=== PATIENT | male | born 1960 | race Two or more races ===

== ENCOUNTER 2016-11-29 20:03 | Emergency (ER) | payer OTHER ==
[2016-11-29 20:13] VITALS: BP 167/95; PULSE 98; TEMP 98.2; BMI 29.5
[2016-11-29] MEDS ORDERED: IBUPROFEN 400 MG TABLET (FP) PO ONE ×2 (20:37→20:45)
[2016-11-29] MEDS ORDERED: ALBUTEROL SO4 0.083% IH SOL 2.5 MG/3 ML VIAL.NEB. NEB ONE ×2 (20:37→20:46)
--- NOTE | 2016-11-29 20:38 | PDOC ---
History of Present Illness - General History Source: Patient Exam Limitations: No Limitations - History of Present Illness Initial Comments: 11/29/16 21:08 The patient is a 56 year old male with a significant past medical history of NIDDM, hypertension, and asthma, who presents to the ER with left ankle pain and swelling for one day. Patient reports he rolled his left ankle while walking yesterday. He says he had no pain yesterday but woke up with swelling and pain in the left ankle. Patient rates the pain now at 10/10. He says he has associated numbness in the left ankle without tingling. On interview, patient says he is short of breath because he forgot his inhaler at home. Denies head or neck trauma Denies paresthesia Denies weakness Denies lightheadedness Surgical Hx: Left nephrectomy Social Hx: Denies alcohol or drug use <Nara Marinelli - Last Filed: 11/29/16 21:07> - General History Source: Patient <Luis Enrique Monroy - Last Filed: 11/29/16 23:35> - General Chief Complaint: Injury Stated Complaint: ANKLE PAIN Time Seen by Provider: 11/29/16 20:24 Past History <Nara Marinelli - Last Filed: 11/29/16 21:07> - Psycho/Social/Smoking Cessation Hx Suicidal Ideation: No Smoking History: Never smoked Have you smoked in the past 12 months: No Information on smoking cessation initiated: No Hx Alcohol Use: No Drug/Substance Use Hx: No <Luis Enrique Monroy - Last Filed: 11/29/16 23:35> - Past Medical History Allergies/Adverse Reactions: Allergies Allergy/AdvReac Type Severity Reaction Status Date / Time No Known Allergies Allergy Verified 11/29/16 20:11 Home Medications: Ambulatory Orders Amlodipine Besylate [Norvasc -] 5 mg PO DAILY 11/29/16 Aspirin [Giovana Chewable] 81 mg PO DAILY 11/29/16 Gabapentin [Neurontin -] 100 mg PO Q8H 11/29/16 Glipizide [Glipizide ER] 2.5 mg PO DAILY 11/29/16 Lisinopril [Prinivil] 10 mg PO DAILY 11/29/16 Lisinopril [Prinivil] 20 mg PO DAILY 11/29/16 Loratadine 10 mg PO DAILY 11/29/16 Multivit-Min/Iron Fum/Folic AC [Lngbu-Tobsked-Qwdaojyn Tablet] 1 each PO DAILY 11/29/16 Omeprazole 20 mg PO DAILY 11/29/16 Omeprazole 20 mg PO DAILY 11/29/16 Ranitidine HCl 150 mg PO DAILY 11/29/16 Sodium Bicarbonate - 1,300 mg PO DAILY 11/29/16 Sodium Bicarbonate - 650 mg PO DAILY 11/29/16 Review of Systems - Review of Systems Able to Perform ROS?: Yes Comments:: 11/29/16 21:08 CONSTITUTIONAL: Absent: fever, no chills, no fatigue EYES: Absent: visual changes ENT: Absent: ear pain, no sore throat CARDIOVASCULAR: Absent: chest pain, no palpitations RESPIRATORY: Absent: cough, no SOB GI: Absent: abdominal pain, no nausea, no vomiting, no constipation, no diarrhea GENITOURINARY: Absent: dysuria, no frequency, no hematuria MUSCULOSKELETAL: Present: (+) left ankle pain, (+) swelling, (+) numbness Absent: back pain, no arthralgia, no myalgia SKIN: Absent: rash NEURO: Absent: headache <Uts,Nara - Last Filed: 11/29/16 21:07> *Physical Exam - Vital Signs Last Vital Signs Temp Pulse Resp BP Pulse Ox 98.2 F 98 H 20 167/95 97 11/29/16 20:11 11/29/16 20:11 11/29/16 20:11 11/29/16 20:11 11/29/16 20:11 - Physical Exam Comments: 11/29/16 21:09 GENERAL: Well-appearing, well-nourished. No apparent distress. HEENT: Normocephalic, atraumatic. PERRL, EOM intact. CARDIOVASCULAR: Normal S1, S2. Regular rate and rhythm. PULMONARY: Clear to auscultation bilaterally. ABDOMEN: Mildly distended abdomen. Soft, non-tender. EXTREMITIES: Swelling in left ankle, limited ROM of left ankle due to pain. 2+ dorsalis pedis. Neurovascularly intact. Tenderness on palpation to the lateral malleolus of L ankle. No ecchymosis. SKIN: Warm, dry. No rash NEUROLOGICAL: No focal neurological deficits. <Uts,Nara - Last Filed: 11/29/16 21:07> - Vital Signs Last Vital Signs Temp Pulse Resp BP Pulse Ox 98.2 F 98 H 20 167/95 97 11/29/16 20:11 11/29/16 20:11 11/29/16 20:11 11/29/16 20:11 11/29/16 20:11 <Luis Enrique Monroy - Last Filed: 11/29/16 23:35> ED Treatment Course - Medications Given in the ED: ED Medications Discontinued Medications Generic Name Dose Route Start Last Admin Trade Name Sara PRN Reason Stop Dose Admin Acetaminophen 975 mg 11/29/16 20:53 11/29/16 20:58 Tylenol - PO 11/29/16 20:54 975 mg ONCE ONE Administration Albuterol Sulfate 1 amp 11/29/16 20:37 11/29/16 20:58 Ventolin 0.083% Nebulizer Soln - NEB 11/29/16 20:38 1 amp ONCE ONE Administration Ibuprofen 800 mg 11/29/16 20:37 11/29/16 21:00 Motrin - PO 11/29/16 20:38 Not Given ONCE ONE <Nara Marinelli - Last Filed: 11/29/16 21:07> Medical Decision Making - Medical Decision Making 11/29/16 23:35 Dr. Monroy: The scribe's documentation has been prepared under my direction and personally reviewed by me in its entirery. I confirm that the note above accurately reflects all work, treatment, procedures, and medical decision making performed by me. <Luis Enrique Monroy - Last Filed: 11/29/16 23:35> *DC/Admit/Observation/Transfer - Attestations Scribe Attestion: 11/29/16 21:12 Documentation prepared by Nara Marinelli, acting as senior medical billing specialist for Luis Enrique Monroy DO. <Nara Marinelli - Last Filed: 11/29/16 21:07> - Discharge Dispostion Admit: No <Luis Enrique Monroy - Last Filed: 11/29/16 23:35> Diagnosis at time of Disposition: Left ankle sprain Qualifiers: Encounter type: initial encounter Involved ligament of ankle: unspecified ligament Qualified Code(s): S93.402A - Sprain of unspecified ligament of left ankle, initial encounter - Discharge Dispostion Disposition: HOME Condition at time of disposition: Stable - Referrals Referrals: STAFF,NOT ON [Primary Care Provider] - Alexi Richardson MD [Staff Physician] - - Patient Instructions Printed Discharge Instructions: DI for Ankle Sprain
[2016-11-29] MEDS ORDERED: ACETAMINOPHEN 325 MG TABLET (FP) PO ONE (20:53)
[2016-11-29] MEDS ORDERED: ACETAMINOPHEN 325 MG TABLET (FP) ONE (20:55)
[2016-11-29] MEDS ORDERED: OXYCODONE/APAP 5/325MG COMBO TABLET PO ONE (23:45)
[2016-11-30] MEDS ORDERED: OXYCODONE/APAP 5/325MG COMBO TABLET ONE (00:15)
== END 2016-11-30 01:17 | disposition home or self-care (01) ==
LOC: JER 20:03
PROC: 3E0F7GC Introduction of Other Therapeutic Substance into Respiratory Tract, Via Natural or Artificial Opening (ICD-10-PCS; principal; 2016-11-29)
DX: S93.402A Sprain of unspecified ligament of left ankle, initial encounter (principal); I10 Essential (primary) hypertension; E11.9 Type 2 diabetes mellitus without complications; Z79.84 Long term (current) use of oral hypoglycemic drugs; J45.909 Unspecified asthma, uncomplicated; X50.1XXA Overexertion from prolonged static or awkward postures, initial encounter; Y93.01 Activity, walking, marching and hiking; Y92.038 Other place in apartment as the place of occurrence of the external cause
CPT/HCPCS: 73610-TC-LT; 73630-TC-LT; 99282-25

== ENCOUNTER 2019-02-22 22:12 | Inpatient (IN) | payer OTHER ==
--- NOTE | 2019-02-22 22:54 | PDOC ---
History of Present Illness - General Chief Complaint: Rectal Bleed Stated Complaint: ABD PAIN Time Seen by Provider: 02/22/19 22:35 - History of Present Illness Initial Comments: 02/22/19 23:46 58m with pmh of htn, dm2, L nephrectomy, LLQ hernia repair and GERD presents to the ED for 2 days fo diarrhea. Today the diarrhea presented with blood streaks in the stools. He complains of exacerbated rectal pain upon bowel movement. Also endorses difficulty urinating, slower stream than usual, but no pain on urination. Was told by his pcp that he had "elevated ammonia" Denies fever. Past History - Past Medical History Allergies/Adverse Reactions: Allergies Allergy/AdvReac Type Severity Reaction Status Date / Time No Known Allergies Allergy Verified 11/29/16 20:11 Home Medications: Ambulatory Orders Amlodipine Besylate [Norvasc -] 5 mg PO DAILY 11/29/16 Aspirin [Giovana Chewable] 81 mg PO DAILY 11/29/16 Gabapentin [Neurontin -] 100 mg PO Q8H 11/29/16 Glipizide [Glipizide ER] 2.5 mg PO DAILY 11/29/16 Lisinopril [Prinivil] 10 mg PO DAILY 11/29/16 Lisinopril [Prinivil] 20 mg PO DAILY 11/29/16 Loratadine 10 mg PO DAILY 11/29/16 Multivit-Min/Iron Fum/Folic AC [Ngxct-Ylmquxb-Ecaryrjq Tablet] 1 each PO DAILY 11/29/16 Omeprazole 20 mg PO DAILY 11/29/16 Omeprazole 20 mg PO DAILY 11/29/16 Oxycodone HCl/Acetaminophen [Percocet 5-325 mg Tablet] 1 - 2 tab PO Q6H #20 tablet MDD 4 11/29/16 Ranitidine HCl 150 mg PO DAILY 11/29/16 Sodium Bicarbonate - 1,300 mg PO DAILY 11/29/16 Sodium Bicarbonate - 650 mg PO DAILY 11/29/16 - Suicide/Smoking/Psychosocial Hx Smoking History: Former smoker Have you smoked in the past 12 months: Yes If you are a former smoker, when did you quit?: December 2018 Information on smoking cessation initiated: Yes Hx Alcohol Use: No Drug/Substance Use Hx: No *Physical Exam - Vital Signs Last Vital Signs Temp Pulse Resp BP Pulse Ox 98.1 F 117 H 20 135/87 99 02/22/19 22:19 02/22/19 22:19 02/22/19 22:19 02/22/19 22:19 02/22/19 22:19 - Physical Exam General Appearance: Yes: Nourished, Appropriately Dressed, Moderate Distress. No: Apparent Distress HEENT: positive: EOMI, KHAI, Normal ENT Inspection Respiratory/Chest: positive: Lungs Clear, Normal Breath Sounds. negative: Chest Tender, Respiratory Distress Cardiovascular: positive: S1, S2, Tachycardia Gastrointestinal/Abdominal: positive: Normal Bowel Sounds, Tender (suprapubic), Soft, Other (ecchymosed llq patch of skin) Rectal Exam: positive: heme negative stool, hemorrhoids (large multiple tender, non-thombosed) Musculoskeletal: positive: Normal Inspection Extremity: positive: Normal Capillary Refill Integumentary: positive: Normal Color, Dry, Warm Neurologic: positive: Fully Oriented, Alert, Normal Mood/Affect, Normal Response ED Treatment Course - LABORATORY CBC & Chemistry Diagram: 02/22/19 23:20 02/22/19 23:20 Medical Decision Making - Medical Decision Making 02/23/19 01:15 58M with diarrhea and painful hemorrhoids for 2 days with some rectal bleed. Ct abdomen positive for colitis, will treat with abx, flagyl and bactrim. No anemia, no elevated wbc. No UTI. Hemorrhoids not thrombosed, no need for emergent procedure. elevated creatinine and bun, giving patient LR. Lipase not significantly elevated. colitis gera mutiple tender hemorroids. Worsening urinary retention Patient admitted to med/surg under the care of Dr. Eckert. *DC/Admit/Observation/Transfer Diagnosis at time of Disposition: Colitis - Discharge Dispostion Decision to Admit order: Yes - Referrals - Patient Instructions - Post Discharge Activity
[2019-02-22] MEDS ORDERED: LACTATED RINGERS SOLUTION 1,000 ML/1,000 ML INFUS.BAG IV SCH (23:30)
[2019-02-22 23:46] LABS: BASO % 0.3 % (0-2.0); EOS % 0.6 % (0-4.5); HEMATOCRIT 37.6 % (35.4-49); HEMOGLOBIN 12.1 GM/dL (11.7-16.9); LYMPH % 15.1 % (8-40); MCH 28.7 pg (25.7-33.7); MCHC 32.1 g/dl (32.0-35.9); MEAN CELL VOLUME 89.2 fl (80-96); MEAN PLT VOLUME 8.9 fl (7.5-11.1); MONO % 7.9 % (3.8-10.2); NEUT % 76.1 % (42.8-82.8); PLATELET COUNT 247 K/MM3 (134-434); RBC 4.21 M/mm3 (4.00-5.60); RDW 15.5 % (11.9-15.9); WHITE BLOOD COUNT 7.9 K/mm3 (4.0-10.0)
[2019-02-23 00:12] LABS: ALBUMIN 3.3 g/dl (3.4-5.0); BILIRUBIN,TOTAL 0.1 mg/dL (0.2-1); BLOOD UREA NITROGEN 44.1 mg/dL (7-18); CALCIUM 9.5 mg/dL (8.5-10.1); CREATININE 1.9 mg/dL (0.55-1.3); TOT PROT 7.1 g/dl (6.4-8.2)
--- NOTE | 2019-02-23 00:35 | PDOC ---
Documentation entered by Jaelyn Garza SCRIBE, acting as scribe for Jona Roque MD. Jona Roque MD: This documentation has been prepared by the Greg king Sammi, SCRIBE, under my direction and personally reviewed by me in its entirety. I confirm that the documentation accurately reflects all work, treatment, procedures, and medical decision making performed by me. Attending Attestation - Resident Resident Name: Mandeep Brown - ED Attending Attestation I have performed the following: I have examined & evaluated the patient, The case was reviewed & discussed with the resident, I agree w/resident's findings & plan, Exceptions are as noted - HPI HPI: 02/22/19 23:17 The patient is a 58 year old male, with a significant PMH of DM, HTN, GERD, who presents to the emergency department for evaluation of 2 days of abdominal pain with diarrhea. He states yesterday he was making bowel movements every couple of hours and today they have increased to every 10 minutes. The patient also reports 2 episodes of vomiting today and lower abdominal pain, localized to suprapubic region. Pt endorses some burning with urination, as well as urinary frequency and a sensation of incomplete voiding. Also complaining of rectal pain. Denies fever or chills. Denies sick contact or recent travel. Surgical history: hernia repair(~3 months ago), L nephrectomy - Physicial Exam PE: 02/23/19 00:46 "GENERAL: Awake, alert, and fully oriented, in no acute distress. HEAD: No signs of trauma EYES: PERRLA, EOMI, sclera anicteric, conjunctiva clear ENT: Auricles normal inspection, hearing grossly normal, nares patent, oropharynx clear without exudates. Moist mucosa NECK: Nontender, no stepoffs, Normal ROM, supple, no lymphadenopathy, JVD, or masses LUNGS: Breath sounds equal, clear to auscultation bilaterally. No wheezes, and no crackles HEART: Regular rate and rhythm, normal S1 and S2, no murmurs, rubs or gallops ABDOMEN: + suprapubic TTP, normoactive bowel sounds. No guarding, no rebound. No masses EXTREMITIES: Normal range of motion, no edema. No clubbing or cyanosis. No cords, erythema, or tenderness NEUROLOGICAL: Cranial nerves II through XII intact. 5/5 strength and sensation in all extremities, Normal speech, normal gait, normal cerebellar function SKIN: Warm, Dry, normal turgor, no rashes or lesions noted. RECTAL: + external hemorrhoids, + exquisite tenderness on rectal exam, difficult to evaluate prostate - Medical Decision Making 02/23/19 00:46 58 M with lower abdominal pain, rectal pain, diarrhea, as well as dysuria and urinary frequency. Possible colitis. Possible UTI. Also consider prostatitis given urinary frequency/dysuria with sensation of incomplete voiding and rectal pain. Unable to fully evaluate prostate on exam given severe hemorrhoids. - Labs, UA - CTAP - IVF, tylenol 02/23/19 01:19 Labs notable for TIM Cr 1.9 [address]A negative for infection CT obtained, shows likely colitis. Dilated appendix but low suspicion for appy as pt with no RLQ pain. Will tx with bactrim/flagyl for colitis
[2019-02-23] MEDS ORDERED: ACETAMINOPHEN 1000 MG/100 ML VIAL (NON FORMULARY) IVPB ONE (00:37)
[2019-02-23] MEDS ORDERED: SULFAMETHOXAZOLE/TRIMETHOPRIM 800MG/160MG D.S. TABLET PO ONE (00:46)
[2019-02-23 00:57] LABS: EPI CELLS 0.5 /HPF (0-5/HPF); HYALINE CASTS 2 /lpf (0-8); PH,URINE 5.5 (5.0-8.0); URINE APPEARANCE CLEAR; URINE BACTERIA 0.7 /hpf (NEGATIVE); URINE BILIRUBIN NEGATIVE (NEGATIVE); URINE COLOR YELLOW; URINE GLUCOSE (UA) TRACE (NEGATIVE); URINE KETONE NEGATIVE (NEGATIVE); URINE LEUK ESTERASE NEGATIVE (NEGATIVE); URINE NITRITE NEGATIVE (NEGATIVE); URINE PROTEIN 3+ (NEGATIVE); URINE RBC 0 /hpf (0-4); URINE UROBILINOGEN 0.2 mg/dL (0.2-1.0); URINE WBC 0 /hpf (0-5)
[2019-02-23] MEDS ORDERED: SULFAMETHOXAZOLE/TRIMETHOPRIM 800MG/160MG D.S. TABLET ONE (01:08)
[2019-02-23] MEDS ORDERED: ACETAMINOPHEN INJECTION 100 ML IVPB ONE (01:08)
[2019-02-23] MEDS ORDERED: CEFOXITIN SODIUM 2 GM in DEXTROSE 5%-WATER 100 ML IVPB ONE (01:27)
[2019-02-23] MEDS ORDERED: LACTATED RINGERS SOLUTION 1,000 ML/1,000 ML INFUS.BAG IV SCH ×3 (01:30→09:28)
--- NOTE | 2019-02-23 01:38 | PN ---
Teaching Attending Note ATTENDING PHYSICIAN STATEMENT I saw and evaluated the patient. I reviewed the resident's note and discussed the case with the resident. I agree with the resident's findings and plan as documented. Seen and examined; please refer to resident note for further historical information. Briefly, this is a 58 y/o male presenting to the ER with a CC of abdominal pain and diarrhea; no WBC, no fever but tachy and CT shows ? appendicitis (no inflammation so technically can't call it, but with dilation and sludging); there was concern for colitis, report states "apparent wall thickening likely 2/2 nondistention rather than colitis." He is also largely hyperglycemic and has an TIM. He has sensation o incomplete bladder emptying; checking PVRV. He was given bactrim and metro and fluids; medicine was called. Discussed case with Dr. Rogers who will see the patient in the AM. VS, labs, imaging reviewed NAD, AAO, resting in bed NC AT EOMI PERRLA RRR s1/2 Lungs CTAB Tender lower abdomen, but no +rovsings, etc. CN2-12 wnl, no fnd Rectal pending patient movement PVRV peding CT prelim report discussed above CXR reviewed EKG reviewed ASSESSMENT AND PLAN: Patient presents with abdominal pain, TIM, uncontrolled DM with hyperglycemia, and potential urinary retention (negative UA and passing urine, r/o BPH, etc.) # Abdominal Pain with diarrhea -DDx includes distended bladder vs. appy vs. less likely colitis. Camacho inserted; reassessing for improvement. Giving 1x tams and will consult urology and defer tothem. UA is negative. FOBT negative for blood. -As stated in prelim report, no inflam to call appy for sure; will have sgy review images and FU final report. NPO, pain control, isotonic @ 100cc/hr. Abx per surgical recs and ID consult for abx approval. Appreciate subspecialist recommendations # TIM with proteinuria -Suspecting underlying CKD 2/2 uncontrolled DM and should get nephrology referral on DC. Checking FeNa, holding nephrotoxic meds, empirically hydrating. Followup BMP and UOP. # Uncontrolled NIDDM with hyperglycemia -A1c, SSI with q6h fsg. Not treated in ER so will give 8 IV insulin regular push now # NAGMA -Low HCO3 on BMP, confirmed on VBG with rough estimate. Avoid NaCl and LR for fluids, repeat in AM. Likely 2/2 acute issue
[2019-02-23] MEDS ORDERED: INSULIN (NOVOLOG MIX 70/30) 100 UNITS/ML MDV SQ ONE (01:50)
[2019-02-23] MEDS ORDERED: TAMSULOSIN HCL 0.4 MG CAP PO ONE (01:52)
[2019-02-23 02:08] LABS: VENOUS PC02 32.5 mmHg (41-51); VENOUS PH 7.33 (7.31-7.41)
[2019-02-23] MEDS ORDERED: TAMSULOSIN HCL 0.4 MG CAP ONE (02:13)
[2019-02-23] MEDS ORDERED: PANTOPRAZOLE SODIUM 40 MG/100 ML BAG IVPB ONE ×2 (02:13→10:28)
[2019-02-23] MEDS: PANTOPRAZOLE SODIUM 40 MG VIAL IVPUSH SCH ×2 (02:40→10:30)
--- NOTE | 2019-02-23 03:05 | HP ---
CHIEF COMPLAINT: Bloody diarrhea, pain w/ urination, rectal pain PCP: Dr. Emily Read HISTORY OF PRESENT ILLNESS: 58 y/o M, pmh of HTN, DM type 2, Hyperlipidemia, Left nephrectomy, hernia repair , hx of hemorrhoids presents to the ED c/o of bloody diarrhea and rectal pain with BM of 2 day duration associated with difficulty with urination for one week. Pt is a poor historian. Reports bowel movements are painful, and mixed with blood and has worsened since onset. Symptoms began spontaneous and nothing seems to improve it. Reports urination has been limited to small amounts at a time, with increased urgency and frequency. Currently pt is stable and reports symptoms have improved. Admits to diarrhea, hematochezia, difficulty urinating. Denies fevers, chills, nausea, vomit, sob, chest pain, numbness and tingling. ER course was notable for: (1) Bactrim and metronidazole (2) CT- 8.8mm dilated appendix w/ sludge, wall thickening of left colon and sigmoid (3) UCx- pending Recent Travel: denies PAST MEDICAL HISTORY: HTN, DM type 2, Hyperlipidemia, hx of hemorrhoids, PAST SURGICAL HISTORY: Left nephrectomy, hernia repair, right hip surgery Social History: Smoking: denies Alcohol: denies Drugs: denies Family History: Denies Allergies No Known Allergies Allergy (Verified 11/29/16 20:11) HOME MEDICATIONS: Home Medications Medication Instructions Recorded Amlodipine Besylate [Norvasc -] 5 mg PO DAILY 11/29/16 Aspirin [Giovana Chewable] 81 mg PO DAILY 11/29/16 Gabapentin [Neurontin -] 100 mg PO Q8H 11/29/16 Glipizide [Glipizide ER] 2.5 mg PO DAILY 11/29/16 Lisinopril [Prinivil] 10 mg PO DAILY 11/29/16 Lisinopril [Prinivil] 20 mg PO DAILY 11/29/16 Loratadine 10 mg PO DAILY 11/29/16 Multivit-Min/Iron Fum/Folic AC 1 each PO DAILY 11/29/16 [Lvycp-Nxnsape-Lswcnegj Tablet] Omeprazole 20 mg PO DAILY 11/29/16 Omeprazole 20 mg PO DAILY 11/29/16 Oxycodone HCl/Acetaminophen 1 - 2 tab PO Q6H #20 tablet MDD 4 11/29/16 [Percocet 5-325 mg Tablet] Ranitidine HCl 150 mg PO DAILY 11/29/16 Sodium Bicarbonate - 1,300 mg PO DAILY 11/29/16 Sodium Bicarbonate - 650 mg PO DAILY 11/29/16 REVIEW OF SYSTEMS CONSTITUTIONAL: Absent: fever, chills, diaphoresis, generalized weakness, loss of appetite, weight change CARDIOVASCULAR: Absent: chest pain, syncope, palpitations, peripheral edema RESPIRATORY: Absent: cough, shortness of breath, dyspnea with exertion, wheezing, stridor, hemoptysis GASTROINTESTINAL: Admits: abdominal pain, diarrhea, melena, hematochezia Absent: abdominal distension, nausea, vomiting, constipation GENITOURINARY: Admits: dysuria, frequency, urgency, hesitancy, Absent: hematuria, flank pain, NEUROLOGIC: Absent: headache, focal weakness or paresthesias, dizziness, unsteady gait, seizure, mental status changes PSYCHIATRIC: Absent: anxiety PHYSICAL EXAMINATION Vital Signs - 24 hr Last Vital Signs Temp Pulse Resp BP Pulse Ox 98.1 F 80 20 144/84 99 02/22/19 22:19 02/23/19 01:15 02/23/19 01:15 02/23/19 01:15 02/22/19 22:19 GENERAL: Awake, alert, and fully oriented, in no acute distress. EYES: Pupils equal, round and reactive to light, extraocular movements intact NECK: Supple without lymphadenopathy, JVD, or masses. LUNGS: Breath sounds equal, clear to auscultation bilaterally. No wheezes, and no crackles. HEART: Regular rate and rhythm, normal S1 and S2 without murmur, rub or gallop. ABDOMEN: Mild guarding, Mild rebound. Soft, normoactive bowel sounds, , no masses. No hepatomegaly or splenomegaly. UPPER EXTREMITIES: 2+ pulses, warm, well-perfused. No cyanosis. No peripheral edema. LOWER EXTREMITIES: 2+ pulses, warm, well-perfused. No peripheral edema. PSYCHIATRIC: Cooperative. Good eye contact. Appropriate mood and affect. CBC, BMP 02/22/19 23:20 02/22/19 23:20 Lipase 577 ASSESSMENT/PLAN: 58 y/o M, pmh of HTN, DM type 2, Left nephrectomy, hx of hemorrhoids presents to the ED c/o of bloody diarrhea, rectal pain and difficulty urinating, #Hematochezia/abdominal pain possibly 2/2 Colitis vs Gastritis vs Appendicitis r/p UA FOBT Cefoxitin given in ED- continue CT- 8.8mm dilated appendix w/ sludge, wall thickening of left colon and sigmoid Consult Surgery for possible appendicitis Consulted ID Protonix IV tylenol for pain BCx and UCx ordered-pending Stool for WBC Bladder scan ordered [place] placed AGUILAR- no internal hemorrhoid palpable, no prostate palpable, no visible blood #Urinary retention could be 2/2 to BPH 1 dose tamsulosin given Consulted Uro #Hemorrhoids Preparation H cream #DM Insulin Sliding scale Finger stick gluc Q6H #HTN monitor BP #DVT ppx SCDs FEN NPO- pending surgery eval Dispo: continue Abx, symptomatic management, f/u surgery consult in the am Visit type - Emergency Visit Emergency Visit: Yes ED Registration Date: 02/23/19 Care time: The patient presented to the Emergency Department on the above date and was hospitalized for further evaluation of their emergent condition. - New Patient This patient is new to me today: Yes Date on this admission: 02/26/19 - Critical Care Critical Care patient: No ATTENDING PHYSICIAN STATEMENT I saw and evaluated the patient. I reviewed the resident's note and discussed the case with the resident. I agree with the resident's findings and plan as documented. SUBJECTIVE: OBJECTIVE: ASSESSMENT AND PLAN:
[2019-02-23 03:29] LABS: EPI CELLS 0.3 /HPF (0-5/HPF); HYALINE CASTS 1 /lpf (0-8); PH,URINE 5.5 (5.0-8.0); URINE APPEARANCE CLEAR; URINE BACTERIA 0 /hpf (NEGATIVE); URINE BILIRUBIN NEGATIVE (NEGATIVE); URINE COLOR YELLOW; URINE GLUCOSE (UA) TRACE (NEGATIVE); URINE KETONE NEGATIVE (NEGATIVE); URINE LEUK ESTERASE NEGATIVE (NEGATIVE); URINE NITRITE NEGATIVE (NEGATIVE); URINE PROTEIN 3+ (NEGATIVE); URINE RBC 1 /hpf (0-4); URINE UROBILINOGEN 0.2 mg/dL (0.2-1.0); URINE WBC 0 /hpf (0-5)
[2019-02-23] MEDS ORDERED: INSULIN SLIDING SCALE (NOVOLOG) 1 VIAL SQ SCH (06:00)
[2019-02-23] MEDS ORDERED: DEXTROSE 50%-WATER 25 GM/50 ML DISP.SYRIN ONE (06:47)
[2019-02-23] MEDS ORDERED: CEFOXITIN SODIUM 2 GM in DEXTROSE 5%-WATER - 100 ML IVPB ONE (07:00)
[2019-02-23] MEDS ORDERED: DEXTROSE 5%-LACTATED RINGERS 1,000 ML IV SCH (07:15)
[2019-02-23] MEDS ORDERED: CEFOXITIN SODIUM 1 GM in DEXTROSE 5%-WATER 100 ML IVPB ONE (08:30)
[2019-02-23 08:38] LABS: BILIRUBIN,TOTAL 0.2 mg/dL (0.2-1); BLOOD UREA NITROGEN 36.5 mg/dL (7-18); CALCIUM 9.1 mg/dL (8.5-10.1); CREATININE 2.2 mg/dL (0.55-1.3); POTASSIUM 4.2 mmol/L (3.5-5.1); TOT PROT 6.4 g/dl (6.4-8.2)
[2019-02-23 09:43] LABS: BASO % 1.2 % (0-2.0); HEMATOCRIT 35.2 % (35.4-49); HEMOGLOBIN 11.5 GM/dL (11.7-16.9); LYMPH % 31.3 % (8-40); MCH 28.3 pg (25.7-33.7); MCHC 32.5 g/dl (32.0-35.9); MEAN PLT VOLUME 9.9 fl (7.5-11.1); MONO % 8.6 % (3.8-10.2); NEUT % 56.9 % (42.8-82.8); PLATELET COUNT 230 K/MM3 (134-434); RBC 4.05 M/mm3 (4.00-5.60); RDW 15.2 % (11.9-15.9); WHITE BLOOD COUNT 8.4 K/mm3 (4.0-10.0)
[2019-02-23] MEDS: PHENYLEPHRINE HCL/COCOA BUTTER SUPPOSITORY RC SCH ×2 (10:30→23:09)
[2019-02-23] MEDS: DEXTROSE 5%-LACTATED RINGERS 1,000 ML IV SCH (10:37)
--- NOTE | 2019-02-23 10:55 | CON.ID ---
Consult Consult Specialty:: infectious diseases - Alcohol/Substance Use Hx Alcohol Use: No - Smoking History Smoking history: Former smoker Have you smoked in the past 12 months: Yes If you are a former smoker, when did you quit?: December 2018 Home Medications - Allergies Allergies/Adverse Reactions: Allergies Allergy/AdvReac Type Severity Reaction Status Date / Time No Known Allergies Allergy Verified 11/29/16 20:11 - Home Medications Home Medications: Ambulatory Orders Amlodipine Besylate [Norvasc -] 5 mg PO DAILY 11/29/16 Aspirin [Giovana Chewable] 81 mg PO DAILY 11/29/16 Glipizide [Glipizide ER] 2.5 mg PO DAILY 11/29/16 Loratadine 10 mg PO DAILY 11/29/16 Multivit-Min/Iron Fum/Folic AC [Wqhvt-Qekflnw-Qetdjijo Tablet] 1 each PO DAILY 11/29/16 Omeprazole 20 mg PO DAILY 11/29/16 Ranitidine HCl 150 mg PO DAILY 11/29/16 Sodium Bicarbonate - 650 mg PO DAILY 11/29/16 Dulaglutide [Trulicity] 0.75 mg SQ WEEKLY 02/23/19 Pravastatin Sodium [Pravachol (Nf)] 40 mg PO HS 02/23/19 Physical Exam Vital Signs: Vital Signs Temperature 97.6 F 02/23/19 08:04 Pulse Rate 77 02/23/19 08:04 Respiratory Rate 16 02/23/19 08:04 Blood Pressure 120/88 02/23/19 08:04 O2 Sat by Pulse Oximetry (%) 100 02/23/19 08:04 Labs: CBC, BMP 02/23/19 04:00 02/23/19 03:57
--- NOTE | 2019-02-23 11:34 | PN ---
Teaching Attending Note Name of Resident: Jazmín Gibbons ATTENDING PHYSICIAN STATEMENT I saw and evaluated the patient. I reviewed the resident's note and discussed the case with the resident. I agree with the resident's findings and plan as documented. SUBJECTIVE:c/o LLQ pain which has improved since arrival. had a BM this AM that was negative for blood. denies CP, SOB, fever, chills, N/V/C/D had colonoscopy 5 years ago where 3 polyps were removed. had repeat 2 years ago which he was told he had polyps again but unsure if they removed them had L nephrectomy 10 years ago becuase he had infection in it? OBJECTIVE: Last Vital Signs Temp Pulse Resp BP Pulse Ox 97.6 F 77 16 120/88 100 02/23/19 08:04 02/23/19 08:04 02/23/19 08:04 02/23/19 08:04 02/23/19 08:04 General NAD CV S1 S2 RRR no murmur/rub/gallop Lungs CTA B/L no wheezing/rales/rhonchi Abdomen soft +RUQ and LLQ tenderness both to deep palpation. o rebound or guarding. neg rovsing sign or mcburney point. neg jackson sign extremities no pedal edema ASSESSMENT AND PLAN: 58yo M with PMH HTN, DM, L nephrectomy with recent B/L hip surgery where he was in the hospital for some time and then transferred to [facility] last month present to the hospital due to abdominal pain assoc with bloody diarrhea 1. Acute colitis- seen on CT. afebrile with no leukocytosis. received flagyl/ cefotxin/bactrim in the ER and now switched to zosyn. questionable if needs abx will d/w ID further. pt continues to have abdominal pain, would cont NPO with IVF, pain and nausea control. will advance diet as tolerated. Stool studies sent as had recent hospital exposure risk, unclear if he received abx at that facility, liekly received ppx but doubt extended course. would need follow up colonoscopy as outpatient 2. prelim appendictiis- prelim read showed appendicitis, however official read is now changed. clinically pt does not appear to have appendicitis. surgery was consulted. no intervention 3. Urinary retention- sensation of incomplete bladder emptying. ramos in place. urology consulted 4. TIM vs CKD-unknown baseline. will reach out to PMD for baseline labs. no hydro or obstruction seen on CT. avoid nephrotoxic agents. good UOP 5. DM- had episode of hypoglycemia this AM. add D5 to LR. bgm and iss. hold oral agents 6. s/p L nephrectomy- 10 [place] the city. due to infection? to prevent it from spreading? 7. DVT ppx- lovenox
[2019-02-23] MEDS ORDERED: PIPERACILLIN/TAZOB 2.25 GM 2.25 GM/50 ML BAG IVPB ONE ×2 (12:06→18:57)
[2019-02-23] MEDS: PIPERACILLIN/TAZOB 2.25 GM 2.25 GM in DEXTROSE 5%-WATER - 50 ML IVPB SCH ×2 (12:09→18:57)
--- NOTE | 2019-02-23 13:14 | CONSULT ---
Consult Consult Specialty:: General Surgery Referred by:: Julio Hassan Reason for Consultation:: ?appendicitis, colitis?, suprapubic pain - History of Present Illness Chief Complaint: suprapubic pain, incomplete urinary emptying, diarrhea with blood streaks, N/V x2, f/c History of Present Illness: 58yo Green[place] M with HTN, HLD, DM2, COPD/asthma, GERD, likely some CKD s/p L nephrectomy, h/o lap LIHR, R hip replacement, presented to ER yesterday with 3d of diarrhea with some blood streaking in it, pain with defecation, 10d of urinary symptoms including incomplete emptying, weaker stream, suprapubic pain and some pain with urination; he also had subjective F/C yesterday and 2 episodes of N/V after having had bagel in the morning. In the ER, he had normal wbc, elevated BUN/Cr, low CO2, elevated lipase with normal LFTs and was afebrile. CT initially showed questionably slightly enlarged appendix but without inflammatory changes, and surgery was asked to assess. Given his urinary symptoms, a Camacho was placed in ER after PVR was also done, with relief of most of those symptoms, though he still has suprapubic tenderness (no more pain). He was also found in ER to have hemorrhoids, thought to be contributing to the blood-streaked stool, and which had limited digital rectal exam. He got fluids, antibiotics and a dose of Flomax and has been NPO. He is seen and examined in ER, awaiting a floor bed. Pashto phone precision dancer # [phone] was utilized for this consultation, and the patient does speak a little Romanian. He related the above history, and denied epigastric pain. He feels better than yesterday/last night, and better since the catheter was placed. He has had stool since coming to the ER, which no longer has blood in it. Fecal occult blood was negative. Glucose was high initially, and he had some insulin, but then had hypoglycemia earlier today, treated with sugar. He relates that blood sugars at home vary widely. He started on weekly Trulicity about 2 months ago before his hip replacement, for better glucose control, and also stopped smoking around then as well. He had colonoscopy 5 yrs ago and again 2yrs ago and thinks he may be due again next year; has had some polyps out each time. CT from last night was read this morning as showing no evidence of appendicitis or diverticulitis, but possibly some left-sided mild colitis. C. diff was sent and is negative. Lipase repeated this am is still 572 from 577. - History Source History Provided By: Patient Limitations to Obtaining History: Language Barrier (Pashto - phone precision dancer # [phone] used ([employer])) - Past Medical History Cardio/Vascular: Yes: HTN, Hyperlipdemia Pulmonary: Yes: Asthma, COPD (uses inhaler daily) Gastrointestinal: Yes: GERD, Other (polyps out on colonoscopy 5 and 2 yrs ago) Renal/: Yes: Renal Inusuff, Other (s/p L nephrectomy for ?infection 2005) Musculoskeletal: Yes: Chronic low back pain, Osteoarthritis Endocrine: Yes: Diabetes Mellitus - Past Surgical History Past Surgical History: Yes: Colonoscopy (5yrs ago and 2 yrs ago), Hernia Repair (laparoscopic left inguinal), Joint Replacement (right hip 2 months ago), Nephrectomy (left 2005 for ?infection) - Alcohol/Substance Use Hx Alcohol Use: No History of Substance Use: reports: None - Smoking History Smoking history: Former smoker Have you smoked in the past 12 months: Yes Aproximately how many cigarettes per day: 7 (5-10 cigs/day, used to be more) If you are a former smoker, when did you quit?: December 2018 - Social History ADL: Independent Place of : Other ([facility]) Home Medications - Allergies Allergies/Adverse Reactions: Allergies Allergy/AdvReac Type Severity Reaction Status Date / Time No Known Allergies Allergy Verified 11/29/16 20:11 - Home Medications Home Medications: Ambulatory Orders Amlodipine Besylate [Norvasc -] 5 mg PO DAILY 11/29/16 Aspirin [Giovana Chewable] 81 mg PO DAILY 11/29/16 Glipizide [Glipizide ER] 2.5 mg PO DAILY 11/29/16 Loratadine 10 mg PO DAILY 11/29/16 Multivit-Min/Iron Fum/Folic AC [Nckob-Qshooft-Nbkcwqgx Tablet] 1 each PO DAILY 11/29/16 Omeprazole 20 mg PO DAILY 11/29/16 Ranitidine HCl 150 mg PO DAILY 11/29/16 Sodium Bicarbonate - 650 mg PO DAILY 11/29/16 Dulaglutide [Trulicity] 0.75 mg SQ WEEKLY 02/23/19 Pravastatin Sodium [Pravachol (Nf)] 40 mg PO HS 02/23/19 Home Medications (free text): pt does take baby aspirin at home. started Trulicity about 2 months ago, before hip replacement, to control sugars for surgery Family Disease History - Family Disease History Family History: Unable to Obtain (noncontributory) Review of Systems - Review of Systems Constitutional: reports: Chills, Fever (yesterday w/hpi, subjective) Eyes: reports: Other (glasses). denies: Recent Change in Vision Neck: denies: Swollen Glands, Tenderness Cardiovascular: denies: Chest Pain, Palpitations Respiratory: denies: Cough, SOB Gastrointestinal: reports: Abdominal Pain (with hpi), Diarrhea (with hpi), Nausea (w/hpi), Rectal Bleeding (blood streaks in diarrhea with hpi (not in stool today in hospital)), Vomiting (w/hpi), Other (pain with defecation). denies: Constipation Genitourinary: reports: Dysuria (pain with urination, better after Camacho), Other (feeling of incomplete emptying). denies: Burning, Hematuria Musculoskeletal: reports: Back Pain (thinks he has disc problems, chronic), Joint Pain (shoulder, hip, etc) Integumentary: denies: Change in Color, Rash Physical Exam Vital Signs: Vital Signs Temperature 98.8 F 02/23/19 11:45 Pulse Rate 80 02/23/19 11:45 Respiratory Rate 18 02/23/19 11:45 Blood Pressure 126/76 02/23/19 11:45 O2 Sat by Pulse Oximetry (%) 98 02/23/19 11:45 Constitutional: Yes: Well Nourished, No Distress, Calm Eyes: Yes: Conjunctiva Clear, EOM Intact. No: Sclera Icterus HENT: Yes: Atraumatic, Normocephalic Neck: Yes: Supple, Trachea Midline Cardiovascular: Yes: Regular Rate and Rhythm Respiratory: Yes: Regular, CTA Bilaterally. No: Wheezes Gastrointestinal: Yes: Normal Bowel Sounds, Soft, Hernia (L flank/posterior incisional hernia at nephrectomy scar - soft slightly bulging area, reducible, noted on CT, nontender), Tenderness (mainly suprapubic, mild LLQ, RUQ, also epigastric - no rebound or guarding), Tenderness, Epigastrium, Other (healed umbilical laparoscopic scar). No: Distention ...Rectal Exam: Yes: Deferred, Hemorrhoids/External Renal/: Yes: Camacho Present. No: CVA Tenderness - Left, CVA Tenderness - Right , Hematuria Musculoskeletal: Yes: Back Pain (some tenderness over mid-back and lumbar spine) . No: Joint Stiffness, Joint Swelling Extremities: No: Cool, Cyanosis Edema: No Peripheral Pulses WNL: Yes Integumentary: No: Rash Neurological: Yes: Alert, Oriented Psychiatric: Yes: Alert, Oriented Labs: CBC, BMP 02/23/19 04:00 02/23/19 03:57 CMP Sodium 138 mmol/L (136-145) 02/23/19 03:57 Potassium 4.2 mmol/L (3.5-5.1) 02/23/19 03:57 Chloride 112 mmol/L (98-107) H 02/23/19 03:57 Carbon Dioxide 18 mmol/L (21-32) L 02/23/19 03:57 Anion Gap 8 MMOL/L (8-16) 02/23/19 03:57 BUN 36.5 mg/dL (7-18) H 02/23/19 03:57 Creatinine 2.2 mg/dL (0.55-1.3) H 02/23/19 03:57 Est GFR (CKD-EPI)AfAm 37.16 02/23/19 03:57 Est GFR (CKD-EPI)NonAf 32.06 02/23/19 03:57 POC Glucometer 125 UNITS (80-120) 02/23/19 13:11 Random Glucose 106 mg/dL (74-106) 02/23/19 03:57 Lactic Acid 1.1 mmol/L (0.4-2.0) 02/23/19 01:45 Calcium 9.1 mg/dL (8.5-10.1) 02/23/19 03:57 Total Bilirubin 0.2 mg/dL (0.2-1) 02/23/19 03:57 AST 10 U/L (15-37) L 02/23/19 03:57 ALT 17 U/L (13-61) 02/23/19 03:57 Alkaline Phosphatase 95 U/L (45-117) 02/23/19 03:57 Ammonia 15.50 umol/L (11-32) 02/22/19 23:20 C-Reactive Protein 1.2 MG/DL (0.00-0.3) H 02/23/19 03:57 Total Protein 6.4 g/dl (6.4-8.2) 02/23/19 03:57 Albumin 3.0 g/dl (3.4-5.0) L 02/23/19 03:57 Lipase 572 U/L (73-393) H 02/23/19 03:57 Urine Test Results Urine Color Yellow 02/23/19 03:00 Urine Appearance Clear 02/23/19 03:00 Urine pH 5.5 (5.0-8.0) 02/23/19 03:00 Ur Specific [place] 1.017 (1.010-1.035) 02/23/19 03:00 Urine Protein 3+ (NEGATIVE) H 02/23/19 03:00 Urine Glucose (UA) Trace (NEGATIVE) 02/23/19 03:00 Urine Ketones Negative (NEGATIVE) 02/23/19 03:00 Urine Blood Negative (NEGATIVE) 02/23/19 03:00 Urine Nitrite Negative (NEGATIVE) 02/23/19 03:00 Urine Bilirubin Negative (NEGATIVE) 02/23/19 03:00 Ur Leukocyte Esterase Negative (NEGATIVE) 02/23/19 03:00 wbc still normal lipase up and stable from 577 BUN/Cr elevated - Cr up from yesterday 1.9, BUN down a little CO2 low urine clear except protein and little glucose Microbiology 02/23/19 03:00 Clostridioides difficile Antigen - Final Stool Clostridioides difficile Toxin Assay - Final C. diff negative U cx pending Imaging - Results Cat Scan: Report Reviewed, Image Reviewed (images reviewed - appendix does not appear inflamed, left kidney absent, possible mild (?) haziness at edges of left colon, but no diverticulitis; no contrast, no gross pancreatic changes noted) Problem List - Problems (1) Acute pancreatitis without infection or necrosis Assessment/Plan: possibly related to Trulicity? lipase elevated, no sig pain but pt is tender epigastrically and less RUQ NPO except essential meds for now, generous IV hydration would hold home baby aspirin for now consider GI consultation trend labs including lipase discussed with Dr. Becerra medical management - would encourage f/u with PMD related to continuing Trulicity given this episode Code(s): K85.90 - ACUTE PANCREATITIS WITHOUT NECROSIS OR INFECTION, UNSP Qualifiers: Pancreatitis type: drug induced Qualified Code(s): K85.30 - Drug induced acute pancreatitis without necrosis or infection (2) Epigastric abdominal tenderness without rebound tenderness Code(s): R10.816 - EPIGASTRIC ABDOMINAL TENDERNESS (3) Suprapubic pain Assessment/Plan: and tenderness Code(s): R10.2 - PELVIC AND PERINEAL PAIN (4) Urinary retention due to benign prostatic hyperplasia Assessment/Plan: Camacho in place urology to see Code(s): N40.1 - BENIGN PROSTATIC HYPERPLASIA WITH LOWER URINARY TRACT SYMP; R33.8 - OTHER RETENTION OF URINE (5) Noninfectious colitis Assessment/Plan: unclear source C. diff negative would check stool culture/O&P not sure if need to continue antibiotics will defer to ID Code(s): K52.9 - NONINFECTIVE GASTROENTERITIS AND COLITIS, UNSPECIFIED (6) Diabetes mellitus with stage 2 chronic kidney disease, with long-term current use of insulin Assessment/Plan: FS with SSI while NPO monitor closely for hypoglycemia Code(s): E11.22 - TYPE 2 DIABETES MELLITUS W DIABETIC CHRONIC KIDNEY DISEASE; N18.2 - CHRONIC KIDNEY DISEASE, STAGE 2 (MILD); Z79.4 - SKILLED NURSING (CURRENT) USE OF INSULIN Qualifiers: Diabetes mellitus type: type 2 Qualified Code(s): E11.22 - Type 2 diabetes mellitus with diabetic chronic kidney disease; N18.2 - Chronic kidney disease, stage 2 (mild); Z79.4 - medical terminologist (current) use of insulin (7) Hypertension Code(s): I10 - ESSENTIAL (PRIMARY) HYPERTENSION Qualifiers: Hypertension type: essential hypertension Qualified Code(s): I10 - Essential (primary) hypertension (8) Hyperlipidemia Code(s): E78.5 - HYPERLIPIDEMIA, UNSPECIFIED Qualifiers: Hyperlipidemia type: unspecified Qualified Code(s): E78.5 - Hyperlipidemia , unspecified (9) History of left nephrectomy Code(s): Z90.5 - ACQUIRED ABSENCE OF KIDNEY
--- NOTE | 2019-02-23 13:31 | PN ---
Physical Exam: SUBJECTIVE: Patient seen and examined at bedside. Pt states his abdominal pain has resolved. Pt states that he only had one BM today and it was not bloody. pt denies n/v. Pt states that he got dizzy but that was because he had low sugar OBJECTIVE: Vital Signs Period Temp Pulse Resp BP Sys/Bosch Pulse Ox Last 24 Hr 97.6 F-98.8 F 76-117 16-20 105-144/61-88 95-100 GENERAL: The patient is awake, alert, and fully oriented, in no acute distress.. LUNGS: Breath sounds equal, clear to auscultation bilaterally, no wheezes, no crackles, no accessory muscle use. HEART: Regular rate and rhythm, S1, S2 without murmur, rub or gallop. ABDOMEN: Soft, mildly tender to palpation to RLQ and LLQ. nondistended, normoactive bowel sounds, no guarding, no rebound, no hepatosplenomegaly, no masses. EXTREMITIES: 2+ pulses, warm, well-perfused, no edema. SKIN: Warm, dry, normal turgor, no rashes or lesions noted Laboratory Last Values WBC 8.4 K/mm3 (4.0-10.0) 02/23/19 04:00 RBC 4.05 M/mm3 (4.00-5.60) 02/23/19 04:00 Hgb 11.5 GM/dL (11.7-16.9) L 02/23/19 04:00 Hct 35.2 % (35.4-49) L 02/23/19 04:00 MCV 87.0 fl (80-96) 02/23/19 04:00 MCH 28.3 pg (25.7-33.7) 02/23/19 04:00 MCHC 32.5 g/dl (32.0-35.9) 02/23/19 04:00 RDW 15.2 % (11.9-15.9) 02/23/19 04:00 Plt Count 230 K/MM3 (134-434) 02/23/19 04:00 MPV 9.9 fl (7.5-11.1) D 02/23/19 04:00 Absolute Neuts (auto) 4.8 K/mm3 (1.5-8.0) 02/23/19 04:00 Neutrophils % 56.9 % (42.8-82.8) D 02/23/19 04:00 Lymphocytes % 31.3 % (8-40) D 02/23/19 04:00 Monocytes % 8.6 % (3.8-10.2) 02/23/19 04:00 Eosinophils % 2.0 % (0-4.5) D 02/23/19 04:00 Basophils % 1.2 % (0-2.0) D 02/23/19 04:00 Nucleated RBC % 0 % (0-0) 02/23/19 04:00 ESR 49 mm/hr (0-20) H 02/23/19 03:57 VBG pH 7.33 (7.31-7.41) 02/23/19 01:45 POC VBG pCO2 32.5 mmHg (41-51) L 02/23/19 01:45 POC VBG pO2 152 mmHg (30-40) H 02/23/19 01:45 VBG HCO3 16.8 mmol/L (23-29) L 02/23/19 01:45 VBG O2 Sat (Verito) 99.1 % (70-80) H 02/23/19 01:45 VBG Base Excess -7.8 meq/l (-2-2) L 02/23/19 01:45 Sodium 138 mmol/L (136-145) 02/23/19 03:57 Potassium 4.2 mmol/L (3.5-5.1) 02/23/19 03:57 Chloride 112 mmol/L (98-107) H 02/23/19 03:57 Carbon Dioxide 18 mmol/L (21-32) L 02/23/19 03:57 Anion Gap 8 MMOL/L (8-16) 02/23/19 03:57 BUN 36.5 mg/dL (7-18) H 02/23/19 03:57 Creatinine 2.2 mg/dL (0.55-1.3) H 02/23/19 03:57 Est GFR (CKD-EPI)AfAm 37.16 02/23/19 03:57 Est GFR (CKD-EPI)NonAf 32.06 02/23/19 03:57 POC Glucometer 125 UNITS (80-120) 02/23/19 13:11 Random Glucose 106 mg/dL (74-106) 02/23/19 03:57 Lactic Acid 1.1 mmol/L (0.4-2.0) 02/23/19 01:45 Calcium 9.1 mg/dL (8.5-10.1) 02/23/19 03:57 Total Bilirubin 0.2 mg/dL (0.2-1) 02/23/19 03:57 AST 10 U/L (15-37) L 02/23/19 03:57 ALT 17 U/L (13-61) 02/23/19 03:57 Alkaline Phosphatase 95 U/L (45-117) 02/23/19 03:57 Ammonia 15.50 umol/L (11-32) 02/22/19 23:20 C-Reactive Protein 1.2 MG/DL (0.00-0.3) H 02/23/19 03:57 Total Protein 6.4 g/dl (6.4-8.2) 02/23/19 03:57 Albumin 3.0 g/dl (3.4-5.0) L 02/23/19 03:57 Lipase 572 U/L (73-393) H 02/23/19 03:57 Urine Color Yellow 02/23/19 03:00 Urine Appearance Clear 02/23/19 03:00 Urine pH 5.5 (5.0-8.0) 02/23/19 03:00 Ur Specific [place] 1.017 (1.010-1.035) 02/23/19 03:00 Urine Protein 3+ (NEGATIVE) H 02/23/19 03:00 Urine Glucose (UA) Trace (NEGATIVE) 02/23/19 03:00 Urine Ketones Negative (NEGATIVE) 02/23/19 03:00 Urine Blood Negative (NEGATIVE) 02/23/19 03:00 Urine Nitrite Negative (NEGATIVE) 02/23/19 03:00 Urine Bilirubin Negative (NEGATIVE) 02/23/19 03:00 Urine Urobilinogen 0.2 mg/dL (0.2-1.0) 02/23/19 03:00 Ur Leukocyte Esterase Negative (NEGATIVE) 02/23/19 03:00 Urine WBC (Auto) 0 /hpf (0-5) 02/23/19 03:00 Urine RBC (Auto) 1 /hpf (0-4) 02/23/19 03:00 Urine Casts (Auto) 1 /lpf (0-8) 02/23/19 03:00 U Epithel Cells (Auto) 0.3 /HPF (0-5/HPF) 02/23/19 03:00 Urine Bacteria (Auto) 0 /hpf (NEGATIVE) 02/23/19 03:00 Ur Random Creatinine 33.0 mg/dL (30-150) 02/23/19 03:00 U Random Total Protein 74.8 mg/dl (0-11.9) H 02/23/19 03:00 Ur Random Sodium 72 MMOL/L (40-220) 02/23/19 02:41 Stool Occult Blood Negative (NEGATIVE) 02/22/19 23:20 Blood Type A POSITIVE 02/23/19 10:13 Antibody Screen Negative 02/23/19 03:57 Active Medications Generic Name Dose Route Start Last Admin Trade Name Freq PRN Reason Stop Dose Admin Kent Butter/Phenylephrine 1 each 02/23/19 10:00 02/23/19 10:30 Preparation H Suppository RC 1 each BID ANTHONY Administration Heparin Sodium (Porcine) 5,000 unit 02/23/19 14:00 Heparin - SQ TID ANTHONY Dextrose/Lactated Ringer's 1,000 mls @ 100 mls/hr 02/23/19 10:30 02/23/19 10: 37 D5-Lr - IV 100 mls/hr ASDIR ANTHONY Administration Piperacillin Sod/Tazobactam 50 mls @ 100 mls/hr 02/23/19 11:00 02/23/19 12:09 Sod 2.25 gm/ Dextrose IVPB 100 mls/hr Q8H-IV ANTHONY Administration Protocol Pantoprazole Sodium 40 mg 02/23/19 01:56 02/23/19 10:30 Protonix Iv IVPUSH 40 mg DAILY ANTHONY Administration CT Abdomen/Pelvis IMPRESSION: 1. Absence of the left kidney. Has the patient undergone a nephrectomy? 2. Questionable thickening of the left colon. A mild degree of colitis cannot be excluded. 3. No additional evidence of acute pathology within the abdomen or pelvis. Please see above discussion ASSESSMENT/PLAN: 59 yo M PMH HTN, DM, p/w abdominal pain, blood in stool, and diarrhea. Pt is admitted for acute colitis. Acute colitis -CT abdomen/pelvis reviewed. see above -awaiting UCx and Bcx -c/w flagyl -c/w fluids -NPO -recommending GI follow up and colonoscopy in 6 weeks. -ID recs appreciated BPH -pt endorses sensation of incomplete emptying -c/w flomax -urology recs appreciated, recommended to f/u outpt for cystoscopy, trus, uroflow, PVR -c/w ramos TIM vs CKD -will check prior records, pt states he has a history of reduced kidney fxn since his nephrectomy HTN DM -BGM, ISS F/E/N -D5LR @ 100mls/hr -NPO DVTppx: Heparin Dispo: monitor on medicine floors until pt is medically optimized Visit type - Emergency Visit Emergency Visit: Yes ED Registration Date: 02/23/19 Care time: The patient presented to the Emergency Department on the above date and was hospitalized for further evaluation of their emergent condition. - New Patient This patient is new to me today: Yes Date on this admission: 02/23/19 - Critical Care Critical Care patient: No - Discharge Referral Referred to [facility] No ATTENDING PHYSICIAN STATEMENT I saw and evaluated the patient. I reviewed the resident's note and discussed the case with the resident. I agree with the resident's findings and plan as documented. SUBJECTIVE: OBJECTIVE: ASSESSMENT AND PLAN:
[2019-02-23] MEDS ORDERED: HEPARIN NA (PORCINE) 5,000 UNITS/ML 1ML VIAL ONE (14:59)
[2019-02-23] MEDS: HEPARIN NA (PORCINE) 5,000 UNITS/ML 1ML VIAL SQ SCH ×2 (15:02→23:09)
--- NOTE | 2019-02-23 15:15 | CON.GU ---
Consult Consult Specialty:: Reason for Consultation:: urinary retention - History of Present Illness Chief Complaint: bloody diarrhea History of Present Illness: 58m with pmh of htn, dm2, L nephrectomy, LLQ hernia repair and GERD presents to the ED for 2 days fo diarrhea. Today the diarrhea presented with blood streaks in the stools. He complains of exacerbated rectal pain upon bowel movement. Also endorses difficulty urinating, slower stream than usual, but no pain on urination. Ramos inserted and cons req. Was told by his pcp that he had "elevated ammonia" Denies fever. - Past Medical History Cardio/Vascular: Yes: HTN, Hyperlipdemia Pulmonary: Yes: Asthma, COPD (uses inhaler daily) Gastrointestinal: Yes: GERD, Other (polyps out on colonoscopy 5 and 2 yrs ago) Renal/: Yes: Renal Inusuff, Other (s/p L nephrectomy for ?infection 2005) Musculoskeletal: Yes: Chronic low back pain, Osteoarthritis Endocrine: Yes: Diabetes Mellitus - Past Surgical History Past Surgical History: Yes: Colonoscopy (5yrs ago and 2 yrs ago), Hernia Repair (laparoscopic left inguinal), Joint Replacement (right hip 2 months ago), Nephrectomy (left 2005 for ?infection) - Alcohol/Substance Use Hx Alcohol Use: No History of Substance Use: reports: None - Smoking History Smoking history: Former smoker Have you smoked in the past 12 months: Yes Aproximately how many cigarettes per day: 7 (5-10 cigs/day, used to be more) If you are a former smoker, when did you quit?: December 2018 - Social History ADL: Independent Home Medications - Allergies Allergies/Adverse Reactions: Allergies Allergy/AdvReac Type Severity Reaction Status Date / Time No Known Allergies Allergy Verified 11/29/16 20:11 - Home Medications Home Medications: Ambulatory Orders Amlodipine Besylate [Norvasc -] 5 mg PO DAILY 11/29/16 Aspirin [Giovana Chewable] 81 mg PO DAILY 11/29/16 Glipizide [Glipizide ER] 2.5 mg PO DAILY 11/29/16 Loratadine 10 mg PO DAILY 11/29/16 Multivit-Min/Iron Fum/Folic AC [Iyaki-Qebkstb-Fyfoiiuy Tablet] 1 each PO DAILY 11/29/16 Omeprazole 20 mg PO DAILY 11/29/16 Ranitidine HCl 150 mg PO DAILY 11/29/16 Sodium Bicarbonate - 650 mg PO DAILY 11/29/16 Dulaglutide [Trulicity] 0.75 mg SQ WEEKLY 02/23/19 Pravastatin Sodium [Pravachol (Nf)] 40 mg PO HS 02/23/19 Physical Exam- Vital Signs: Vital Signs Temperature 98.8 F 02/23/19 11:45 Pulse Rate 80 02/23/19 11:45 Respiratory Rate 18 02/23/19 11:45 Blood Pressure 126/76 02/23/19 11:45 O2 Sat by Pulse Oximetry (%) 98 02/23/19 11:45 Gastrointestinal: Yes: Soft Renal/: Yes: WNL, Ramos Present Labs: CBC, BMP 02/23/19 04:00 02/23/19 03:57 Imaging - Results Cat Scan: Report Reviewed Problem List - Problems (1) S/p nephrectomy Code(s): Z90.5 - ACQUIRED ABSENCE OF KIDNEY (2) Acute pancreatitis without infection or necrosis Code(s): K85.90 - ACUTE PANCREATITIS WITHOUT NECROSIS OR INFECTION, UNSP Qualifiers: Pancreatitis type: drug induced Qualified Code(s): K85.30 - Drug induced acute pancreatitis without necrosis or infection (3) Colitis Code(s): K52.9 - NONINFECTIVE GASTROENTERITIS AND COLITIS, UNSPECIFIED (4) Suprapubic pain Code(s): R10.2 - PELVIC AND PERINEAL PAIN (5) Urinary retention due to benign prostatic hyperplasia Assessment/Plan: cont ramos , rx tamsulosin 0.4 qd, f/u in my office after disch for cystoscopy, trus, uroflow, PVR Code(s): N40.1 - BENIGN PROSTATIC HYPERPLASIA WITH LOWER URINARY TRACT SYMP; R33.8 - OTHER RETENTION OF URINE
[2019-02-23 21:41] VITALS: BMI 28.2
[2019-02-24] MEDS ORDERED: DEXTROSE 5%-WATER - 50 ML IVPB ONE ×2 (02:07→09:57)
[2019-02-24] MEDS ORDERED: PIPERACILLIN/TAZOBACTAM 2.25 GM VIAL IVPB ONE ×2 (02:07→09:57)
[2019-02-24] MEDS: PIPERACILLIN/TAZOB 2.25 GM 2.25 GM in DEXTROSE 5%-WATER - 50 ML IVPB SCH ×2 (02:22→10:36)
[2019-02-24] MEDS: HEPARIN NA (PORCINE) 5,000 UNITS/ML 1ML VIAL SQ SCH ×3 (05:51→21:59)
[2019-02-24 07:22] LABS: URINE TOTAL VOLUME 2000 mL
[2019-02-24 07:45] LABS: HEMATOCRIT 33.5 % (35.4-49); MCH 28.5 pg (25.7-33.7); MCHC 32.9 g/dl (32.0-35.9); MEAN CELL VOLUME 86.6 fl (80-96); MEAN PLT VOLUME 8.7 fl (7.5-11.1); PLATELET COUNT 247 K/MM3 (134-434); RBC 3.87 M/mm3 (4.00-5.60); RDW 15.5 % (11.9-15.9); WHITE BLOOD COUNT 5.3 K/mm3 (4.0-10.0)
[2019-02-24 08:06] LABS: URINE PROTEIN 93 mg/dl (5.0-11.9)
[2019-02-24 08:14] LABS: BLOOD UREA NITROGEN 18.5 mg/dL (7-18); CALCIUM 9.4 mg/dL (8.5-10.1); CREATININE 1.6 mg/dL (0.55-1.3); MAGNESIUM 1.7 mg/dL (1.8-2.4); PHOSPHOROUS 2.5 mg/dL (2.5-4.9); POTASSIUM 4.4 mmol/L (3.5-5.1)
[2019-02-24] MEDS ORDERED: MAGNESIUM SULF 50% (8.12 MEQ/2 ML-1 GM VIAL) IVPB ONE ×2 (08:53→13:45)
[2019-02-24] MEDS ORDERED: PT OWN MED DRAWER 7, Y5N ONE ×2 (09:57→21:16)
[2019-02-24] MEDS: PHENYLEPHRINE HCL/COCOA BUTTER SUPPOSITORY RC SCH ×2 (10:36→22:01)
[2019-02-24] MEDS: PANTOPRAZOLE SODIUM 40 MG VIAL IVPUSH SCH (10:36)
[2019-02-24] MEDS: DEXTROSE 5%-LACTATED RINGERS 1,000 ML IV SCH (10:36)
--- NOTE | 2019-02-24 11:55 | PN ---
Progress Note, Physician History of Present Illness: feels better still with some bad pain no blood in stools foleys in place - Current Medication List Current Medications: Active Medications [place] Butter/Phenylephrine (Preparation H Suppository) 1 each RC BID [facility] Last Admin: 02/23/19 23:09 Dose: 1 each Heparin Sodium (Porcine) (Heparin -) 5,000 unit SQ TID [facility] Last Admin: 02/24/19 05:51 Dose: 5,000 unit Dextrose/Lactated Ringer's (D5-Lr -) 1,000 mls @ 100 mls/hr IV ASDIR ANTHONY Last Admin: 02/24/19 10:36 Dose: 100 mls/hr Piperacillin Sod/Tazobactam (Sod 2.25 gm/ Dextrose) 50 mls @ 100 mls/hr IVPB Q8H-IV [facility]; Protocol Last Admin: 02/24/19 10:36 Dose: 100 mls/hr Pantoprazole Sodium (Protonix Iv) 40 mg IVPUSH DAILY [facility] Last Admin: 02/24/19 10:36 Dose: 40 mg - Objective Vital Signs: Vital Signs Temperature 97.9 F 02/24/19 10:00 Pulse Rate 72 02/24/19 10:00 Respiratory Rate 18 02/24/19 10:00 Blood Pressure 126/67 02/24/19 10:00 O2 Sat by Pulse Oximetry (%) 98 02/23/19 22:00 Constitutional: Yes: Calm, Mild Distress Cardiovascular: Yes: S1, S2 Respiratory: Yes: Regular, CTA Bilaterally Gastrointestinal: Yes: Soft, Hypoactive Bowel Sounds, Other Genitourinary: Yes: Camacho Present Musculoskeletal: Yes: WNL Extremities: Yes: WNL Neurological: Yes: Alert, Oriented Psychiatric: Yes: Alert, Oriented Labs: CBC, BMP 02/24/19 07:00 02/24/19 07:00 Assessment/Plan Problem List - Problems (1) Acute pancreatitis without infection or necrosis Code(s): K85.90 - ACUTE PANCREATITIS WITHOUT NECROSIS OR INFECTION, UNSP Qualifiers: Pancreatitis type: drug induced Qualified Code(s): K85.30 - Drug induced acute pancreatitis without necrosis or infection (2) Epigastric abdominal tenderness without rebound tenderness Code(s): R10.816 - EPIGASTRIC ABDOMINAL TENDERNESS (3) Suprapubic pain Code(s): R10.2 - PELVIC AND PERINEAL PAIN (4) Urinary retention due to benign prostatic hyperplasia Code(s): N40.1 - BENIGN PROSTATIC HYPERPLASIA WITH LOWER URINARY TRACT SYMP; R33.8 - OTHER RETENTION OF URINE (5) Noninfectious colitis Code(s): K52.9 - NONINFECTIVE GASTROENTERITIS AND COLITIS, UNSPECIFIED (6) Diabetes mellitus with stage 2 chronic kidney disease, with long-term current use of insulin Code(s): E11.22 - TYPE 2 DIABETES MELLITUS W DIABETIC CHRONIC KIDNEY DISEASE; N18.2 - CHRONIC KIDNEY DISEASE, STAGE 2 (MILD); Z79.4 - BINDERY ASSISTANT (CURRENT) USE OF INSULIN Qualifiers: Diabetes mellitus type: type 2 Qualified Code(s): E11.22 - Type 2 diabetes mellitus with diabetic chronic kidney disease; N18.2 - Chronic kidney disease, stage 2 (mild); Z79.4 - intermediate (current) use of insulin (7) Hypertension Code(s): I10 - ESSENTIAL (PRIMARY) HYPERTENSION Qualifiers: Hypertension type: essential hypertension Qualified Code(s): I10 - Essential (primary) hypertension (8) Hyperlipidemia Code(s): E78.5 - HYPERLIPIDEMIA, UNSPECIFIED Qualifiers: Hyperlipidemia type: unspecified Qualified Code(s): E78.5 - Hyperlipidemia , unspecified (9) History of left nephrectomy Code(s): Z90.5 - ACQUIRED ABSENCE OF KIDNEY plan will stop abx and monitor continue current mgmt hydration rest as per the team
--- NOTE | 2019-02-24 13:03 | PN ---
Physical Exam: SUBJECTIVE: Patient seen and examined at bedside. Pt states he is hungry. He denies n/v/d. Pt states his stomach is bothering him bc he is hungry OBJECTIVE: Vital Signs Period Temp Pulse Resp BP Sys/Bosch Pulse Ox Last 24 Hr 97.8 F-98.4 F 72-106 16-18 110-135/62-80 98-100 GENERAL: The patient is awake, alert, and fully oriented, in no acute distress. LUNGS: Breath sounds equal, clear to auscultation bilaterally, no wheezes, no crackles, no accessory muscle use. HEART: Regular rate and rhythm, S1, S2 without murmur, rub or gallop. ABDOMEN: Soft, mildly tender to deep palpation on LLQ and LUQ. nondistended, normoactive bowel sounds, no guarding, no masses. EXTREMITIES: 2+ pulses, warm, well-perfused, no edema. SKIN: Warm, dry, normal turgor, no rashes or lesions noted CBC, BMP 02/24/19 07:00 02/24/19 07:00 Active Medications Generic Name Dose Route Start Last Admin Trade Name Chatoq PRN Reason Stop Dose Admin [place] Butter/Phenylephrine 1 each 02/23/19 10:00 02/23/19 23:09 Preparation H Suppository RC 1 each BID ANTHONY Administration Heparin Sodium (Porcine) 5,000 unit 02/23/19 14:00 02/24/19 05:51 Heparin - SQ 5,000 unit TID ANTHONY Administration Dextrose/Lactated Ringer's 1,000 mls @ 100 mls/hr 02/23/19 10:30 02/24/19 10: 36 D5-Lr - IV 100 mls/hr ASDIR ANTHONY Administration Pantoprazole Sodium 40 mg 02/23/19 01:56 02/24/19 10:36 Protonix Iv IVPUSH 40 mg DAILY ANTHOYN Administration Tamsulosin HCl 0.4 mg 02/24/19 20:00 Flomax - PO DAILY ANTHONY CT Abdomen/Pelvis IMPRESSION: 1. Absence of the left kidney. Has the patient undergone a nephrectomy? 2. Questionable thickening of the left colon. A mild degree of colitis cannot be excluded. 3. No additional evidence of acute pathology within the abdomen or pelvis. Please see above discussion ASSESSMENT/PLAN: 59 yo M PMH HTN, DM, p/w abdominal pain, blood in stool, and diarrhea. Pt is admitted for acute colitis. Acute colitis -pt states symptoms have been resolving, denies blood in stool, denies diarrhea -CT abdomen/pelvis reviewed. see above -awaiting UCx and Bcx -s/p flagyl, bactrim, cefoxtin -c/w zosyn -c/w fluids -pt was advanced to clear liquid diet today, continue to advance as tolerated -recommending GI follow up and colonoscopy in 6 weeks. -ID recs appreciated -surgery recs appreciated, no intervention necessary Urinary retention likely 2/2 BPH -pt endorses sensation of incomplete emptying -c/w tamsulosin -urology recs appreciated, recommended to f/u outpt for cystoscopy, trus, uroflow, PVR -c/w ramos CKD -contacted PCP( Dr. Diaz [phone]), baseline Cr approx 1.6-1.9 -pt has hx of L nephrectomy approx 10 y ago in [facility] , unclear etiology HTN - BP well controlled -consider restarting home meds DM -BGM, ISS -continue to hold home meds. HLD c/w statin Recent hip surgery -01/2019 -[facility] , pt still getting PT F/E/N -D5LR @ 100mls/hr -clear liquids, advanced to full diabetic diet DVTppx: Heparin Dispo: monitor on medicine floors until pt is medically optimized Visit type - Emergency Visit Emergency Visit: No - New Patient This patient is new to me today: No - Critical Care Critical Care patient: No - Discharge Referral Referred to [facility] Med P.C.: No ATTENDING PHYSICIAN STATEMENT I saw and evaluated the patient. I reviewed the resident's note and discussed the case with the resident. I agree with the resident's findings and plan as documented. SUBJECTIVE: OBJECTIVE: ASSESSMENT AND PLAN:
--- NOTE | 2019-02-24 14:25 | PN ---
Progress Note, Physician History of Present Illness: Patient with chemical pancreatitis (drug-related? Trulicity?), suprapubic pain and urinary retention relieved by Camacho catheter, and diarrhea and hemorrhoids with associated pain and some bleeding prior to admission which has since resolved. He reports only a little pain with attempt at defecation, passing only gas, and overall feels better than yesterday. Camacho with nearly clear urine output. Tolerating clears, ordered to advance to full liquid diabetic next meal. Sugars have been ok. Starting on Flomax per urology with plan for output followup. Pt requests to have Camacho removed. Seen and examined in bed, comfortable. - Current Medication List Current Medications: Active Medications Amlodipine Besylate (Norvasc -) 5 mg PO DAILY [facility] [place] Butter/Phenylephrine (Preparation H Suppository) 1 each RC BID [facility] Last Admin: 02/23/19 23:09 Dose: 1 each Heparin Sodium (Porcine) (Heparin -) 5,000 unit SQ TID [facility] Last Admin: 02/24/19 05:51 Dose: 5,000 unit Insulin Aspart (Novolog Vial Sliding Scale -) 1 vial SQ ACHS [facility]; Protocol Lisinopril (Prinivil) 5 mg PO DAILY [facility] Pantoprazole Sodium (Protonix Iv) 40 mg IVPUSH DAILY [facility] Last Admin: 02/24/19 10:36 Dose: 40 mg Rosuvastatin Calcium (Crestor -) 10 mg PO HS [facility] Tamsulosin HCl (Flomax -) 0.4 mg PO DAILY@0830 [facility] - Objective Vital Signs: Vital Signs Temperature 97.9 F 02/24/19 10:00 Pulse Rate 72 02/24/19 10:00 Respiratory Rate 18 02/24/19 10:00 Blood Pressure 126/67 02/24/19 10:00 O2 Sat by Pulse Oximetry (%) 98 02/24/19 10:00 Constitutional: Yes: Well Nourished, No Distress, Calm Eyes: Yes: Conjunctiva Clear, EOM Intact HENT: Yes: Atraumatic, Normocephalic Gastrointestinal: Yes: Soft, Tenderness (mild suprapubic/LLQ, less than previous , +distractible), Tenderness, Epigastrium (mild/minimal, less to none with distraction). No: Distention, Tenderness, Rebound ...Rectal Exam: Yes: Deferred Genitourinary: Yes: Camacho Present. No: Hematuria Extremities: No: Cool, Cyanosis Integumentary: No: Jaundice, Rash Neurological: Yes: Alert, Oriented Labs: CBC, BMP 02/24/19 07:00 02/24/19 07:00 CMP Sodium 142 mmol/L (136-145) 02/24/19 07:00 Potassium 4.4 mmol/L (3.5-5.1) 02/24/19 07:00 Chloride 113 mmol/L (98-107) H 02/24/19 07:00 Carbon Dioxide 23 mmol/L (21-32) 02/24/19 07:00 Anion Gap 6 MMOL/L (8-16) L 02/24/19 07:00 BUN 18.5 mg/dL (7-18) H 02/24/19 07:00 Creatinine 1.6 mg/dL (0.55-1.3) H 02/24/19 07:00 Est GFR (CKD-EPI)AfAm 54.61 02/24/19 07:00 Est GFR (CKD-EPI)NonAf 47.12 02/24/19 07:00 POC Glucometer 112 UNITS (80-120) 02/24/19 06:24 Random Glucose 117 mg/dL (74-106) H 02/24/19 07:00 Lactic Acid 1.1 mmol/L (0.4-2.0) 02/23/19 01:45 Calcium 9.4 mg/dL (8.5-10.1) 02/24/19 07:00 Phosphorus 2.5 mg/dL (2.5-4.9) 02/24/19 07:00 Magnesium 1.7 mg/dL (1.8-2.4) L 02/24/19 07:00 Total Bilirubin 0.2 mg/dL (0.2-1) 02/23/19 03:57 AST 10 U/L (15-37) L 02/23/19 03:57 ALT 17 U/L (13-61) 02/23/19 03:57 Alkaline Phosphatase 95 U/L (45-117) 02/23/19 03:57 Ammonia 15.50 umol/L (11-32) 02/22/19 23:20 C-Reactive Protein 1.2 MG/DL (0.00-0.3) H 02/23/19 03:57 Total Protein 6.4 g/dl (6.4-8.2) 02/23/19 03:57 Albumin 3.0 g/dl (3.4-5.0) L 02/23/19 03:57 Lipase 572 U/L (73-393) H 02/23/19 03:57 BUN/Cr down - possibly closer to baseline? (unknown) lipase not rechecked yet today - added on to morning specimen need to trend to ensure resolution Microbiology 02/23/19 03:00 Gram Stain - Final Colon Fluid 02/23/19 00:35 Urine Culture - Final Urine - Urine Clean Catch NO GROWTH OBTAINED 02/23/19 01:45 Blood Culture - Preliminary Blood - Peripheral Venous NO GROWTH OBTAINED AFTER 24 HOURS, INCUBATION TO CONTINUE FOR 4 DAYS. 02/23/19 01:45 Blood Culture - Preliminary Blood - Peripheral Venous NO GROWTH OBTAINED AFTER 24 HOURS, INCUBATION TO CONTINUE FOR 4 DAYS. 02/23/19 03:00 Clostridioides difficile Antigen - Final Stool Clostridioides difficile Toxin Assay - Final C. diff negative no WBC on stool gram stain Problem List - Problems (1) Acute pancreatitis without infection or necrosis Assessment/Plan: possibly related to Trulicity? lipase elevated, no sig pain, less tender epigastrically tolerating clears, advancing slowly consider GI consultation trend labs including lipase medical management - would encourage f/u with PMD related to ?continuing Trulicity given this episode Code(s): K85.90 - ACUTE PANCREATITIS WITHOUT NECROSIS OR INFECTION, UNSP Qualifiers: Pancreatitis type: drug induced Qualified Code(s): K85.30 - Drug induced acute pancreatitis without necrosis or infection (2) Epigastric abdominal tenderness without rebound tenderness Code(s): R10.816 - EPIGASTRIC ABDOMINAL TENDERNESS (3) Suprapubic pain Assessment/Plan: improved Code(s): R10.2 - PELVIC AND PERINEAL PAIN (4) Urinary retention due to benign prostatic hyperplasia Assessment/Plan: Camacho in place urology consult noted Code(s): N40.1 - BENIGN PROSTATIC HYPERPLASIA WITH LOWER URINARY TRACT SYMP; R33.8 - OTHER RETENTION OF URINE (5) Noninfectious colitis Assessment/Plan: unclear source - antibiotics stopped C. diff negative may be related to diarrhea monitor stool output as diet advances Code(s): K52.9 - NONINFECTIVE GASTROENTERITIS AND COLITIS, UNSPECIFIED (6) Diabetes mellitus with stage 2 chronic kidney disease, with long-term current use of insulin Assessment/Plan: FS with SSI monitor sugars medicine to address what to do with Trulicity on discharge until pt can see PMD Code(s): E11.22 - TYPE 2 DIABETES MELLITUS W DIABETIC CHRONIC KIDNEY DISEASE; N18.2 - CHRONIC KIDNEY DISEASE, STAGE 2 (MILD); Z79.4 - LONGTERM (CURRENT) USE OF INSULIN Qualifiers: Diabetes mellitus type: type 2 Qualified Code(s): E11.22 - Type 2 diabetes mellitus with diabetic chronic kidney disease; N18.2 - Chronic kidney disease, stage 2 (mild); Z79.4 - termite exterminator (current) use of insulin (7) Hypertension Code(s): I10 - ESSENTIAL (PRIMARY) HYPERTENSION Qualifiers: Hypertension type: essential hypertension Qualified Code(s): I10 - Essential (primary) hypertension (8) Hyperlipidemia Code(s): E78.5 - HYPERLIPIDEMIA, UNSPECIFIED Qualifiers: Hyperlipidemia type: unspecified Qualified Code(s): E78.5 - Hyperlipidemia , unspecified (9) History of left nephrectomy Code(s): Z90.5 - ACQUIRED ABSENCE OF KIDNEY
[2019-02-24] MEDS: LISINOPRIL 5 MG TABLET (FP) PO SCH (15:42)
[2019-02-24] MEDS: amLODIPine BESYLATE 5 MG TABLET (FP) PO SCH (15:42)
--- NOTE | 2019-02-24 15:44 | PN ---
Teaching Attending Note Name of Resident: Jazmín Gibbons ATTENDING PHYSICIAN STATEMENT I saw and evaluated the patient. I reviewed the resident's note and discussed the case with the resident. I agree with the resident's findings and plan as documented. SUBJECTIVE: Feels hungry and wants to eat. no further diarrhea. No nausea/ vomiting. No fever/chills. Mild residual LLQ abdominal discomfort. OBJECTIVE: Afebrile, Hemodynamicaly Stable. Last Vital Signs Temp Pulse Resp BP Pulse Ox 98.1 F 95 H 18 136/94 98 02/24/19 15:13 02/24/19 15:13 02/24/19 15:13 02/24/19 15:13 02/24/19 10:00 HEENT - Atraumatic, Normocephalic. Heart - S1, S2, RRR Lungs - clear to auscultation Abdomen - Soft, mild LLQ tenderness. Bowel Sounds normal. Extremities - no edema,no calf tenderness. Laboratory Results - last 24 hr 02/23/19 02/24/19 02/24/19 23:14 02:15 06:24 WBC RBC Hgb Hct MCV MCH MCHC RDW Plt Count MPV Sodium Potassium Chloride Carbon Dioxide Anion Gap BUN Creatinine Est GFR (CKD-EPI)AfAm Est GFR (CKD-EPI)NonAf POC Glucometer 115 112 Random Glucose Calcium Phosphorus Magnesium Lipase Urine Protein 93 H Urine Collection Time 24 Urine Total Volume 2000 Ur Total Protein 24 Hr 1860 H 02/24/19 02/24/19 07:00 07:00 WBC 5.3 RBC 3.87 L Hgb 11.0 L Hct 33.5 L MCV 86.6 MCH 28.5 MCHC 32.9 RDW 15.5 Plt Count 247 MPV 8.7 D Sodium 142 Potassium 4.4 Chloride 113 H Carbon Dioxide 23 Anion Gap 6 L BUN 18.5 H Creatinine 1.6 H Est GFR (CKD-EPI)AfAm 54.61 Est GFR (CKD-EPI)NonAf 47.12 POC Glucometer Random Glucose 117 H Calcium 9.4 Phosphorus 2.5 Magnesium 1.7 L Lipase 330 Urine Protein Urine Collection Time Urine Total Volume Ur Total Protein 24 Hr Current Medications Generic Name Dose Route Start Last Admin Trade Name Freq PRN Reason Stop Dose Admin Amlodipine Besylate 5 mg 02/24/19 13:45 Norvasc - PO DAILY ANTHONY [place] Butter/Phenylephrine 1 each 02/23/19 10:00 02/23/19 23:09 Preparation H Suppository RC 1 each BID [facility] Administration Heparin Sodium (Porcine) 5,000 unit 02/23/19 14:00 02/24/19 05:51 Heparin - SQ 5,000 unit TID [facility] Administration Insulin Aspart 1 vial 02/24/19 16:30 Novolog Vial Sliding Scale - SQ ACHS [facility] Protocol Lisinopril 5 mg 02/24/19 13:45 Prinivil PO DAILY [facility] Pantoprazole Sodium 40 mg 02/23/19 01:56 02/24/19 10:36 Protonix Iv IVPUSH 40 mg DAILY [facility] Administration Rosuvastatin Calcium 10 mg 02/24/19 22:00 Crestor - PO HS [facility] Tamsulosin HCl 0.4 mg 02/24/19 20:00 Flomax - PO DAILY@0830 [facility] Home Medications Medication Instructions Recorded Amlodipine Besylate [Norvasc -] 5 mg PO DAILY 11/29/16 Aspirin [Giovana Chewable] 81 mg PO DAILY 11/29/16 Glipizide [Glipizide ER] 5 mg PO BID 11/29/16 Multivit-Min/Iron Fum/Folic AC 1 each PO DAILY 11/29/16 [[id number]-[id number] Tablet] RX: Loratadine 10 mg PO DAILY 11/29/16 RX: Omeprazole 40 mg PO DAILY 11/29/16 RX: Ranitidine HCl 150 mg PO DAILY 11/29/16 RX: Sodium Bicarbonate - 1,300 mg PO DAILY 11/29/16 Dulaglutide [Trulicity] 0.75 mg SQ WEEKLY 02/23/19 Pravastatin Sodium [Pravachol (Nf)] 40 mg PO HS 02/23/19 Cholecalciferol (Vitamin D3) 5,000 unit PO DAILY 02/24/19 [Vitamin D3] RX: Gabapentin 400 mg PO TID 02/24/19 RX: Lisinopril 5 mg PO DAILY 02/24/19 Tiotropium [place] [Spiriva 2 puff DAILY 02/24/19 Respimat] ASSESSMENT AND PLAN: 58 year old male with history of COPD, HTN, DM 2, s/p L Nephrectomy, s/p recent bilateral hip surgery, presents with abdominal pain with associated bloody diarrhea. 1. Acute Colitis, etiology unclear. Bloody diarrhea resolved. Afebrile, no leukocytosis. Received Flagyl/cefotxin/bactrim in the ER, subsequently Zosyn, now all Abx discontinued by ID. Afebrile, hemodynamically Stable. Will resume diet today with clears and monitor tolerance. Out-patient referral to GI for Colonoscopy. 2. Urinary retention sec to likely BPH - seen by urology - for discharge with Camacho and Tamsulosin wit urology outpatient follow up for Cystoscopy/TRUS. 3. TIM on CKD 3 - renal function improved. No hydronephrosis or obstruction on imaging. s/p Nephrectomy > 10 years ago, reason unclear. To determine baseline Creatinine. 4. DM 2 - no further episodes of hypoglycemia. Continue Sliding Scale Novolog. 5. HTN - Continue Norvasc, Lisinopril. 6. COPD - Stable. Continue Spiriva. 7. HLD - Continue Statin. DVT Px - Heparin SQ (no further bloody diarrhea) GI Px - PPI
[2019-02-24] MEDS: INSULIN SLIDING SCALE (NOVOLOG) 1 VIAL SQ SCH ×2 (17:40→22:00)
[2019-02-24] MEDS: TAMSULOSIN HCL 0.4 MG CAP PO SCH (21:59)
[2019-02-24] MEDS: ROSUVASTATIN CA 10 MG TABLET (FP) PO SCH (21:59)
[2019-02-25] MEDS: HEPARIN NA (PORCINE) 5,000 UNITS/ML 1ML VIAL SQ SCH ×3 (06:49→22:06)
[2019-02-25] MEDS: INSULIN SLIDING SCALE (NOVOLOG) 1 VIAL SQ SCH ×4 (06:50→22:07)
[2019-02-25 07:16] LABS: HEMATOCRIT 32.9 % (35.4-49); HEMOGLOBIN 10.8 GM/dL (11.7-16.9); MCH 28.3 pg (25.7-33.7); MCHC 32.8 g/dl (32.0-35.9); MEAN CELL VOLUME 86.3 fl (80-96); MEAN PLT VOLUME 8.6 fl (7.5-11.1); PLATELET COUNT 245 K/MM3 (134-434); RBC 3.81 M/mm3 (4.00-5.60); RDW 14.9 % (11.9-15.9); WHITE BLOOD COUNT 5.4 K/mm3 (4.0-10.0)
[2019-02-25 08:02] LABS: ALBUMIN 2.9 g/dl (3.4-5.0); BILIRUBIN,TOTAL 0.2 mg/dL (0.2-1); CALCIUM 9.5 mg/dL (8.5-10.1); CREATININE 1.7 mg/dL (0.55-1.3); MAGNESIUM 2.1 mg/dL (1.8-2.4); PHOSPHOROUS 2.7 mg/dL (2.5-4.9); POTASSIUM 4.6 mmol/L (3.5-5.1); TOT PROT 6.3 g/dl (6.4-8.2)
[2019-02-25] MEDS: LISINOPRIL 5 MG TABLET (FP) PO SCH (09:26)
[2019-02-25] MEDS: TAMSULOSIN HCL 0.4 MG CAP PO SCH (09:26)
[2019-02-25] MEDS: amLODIPine BESYLATE 5 MG TABLET (FP) PO SCH (09:26)
[2019-02-25] MEDS: PANTOPRAZOLE SODIUM 40 MG VIAL IVPUSH SCH (09:26)
[2019-02-25] MEDS: PHENYLEPHRINE HCL/COCOA BUTTER SUPPOSITORY RC SCH ×2 (09:28→22:07)
--- NOTE | 2019-02-25 10:37 | PN ---
Physical Exam: SUBJECTIVE: Patient seen and examined at bedside. Pt states he has pain while having a BM. Pt states he has mucus in his BM. denies blood in BM. Also states some abdominal discomfort. OBJECTIVE: Vital Signs Period Temp Pulse Resp BP Sys/Bosch Pulse Ox Last 24 Hr 98 F-98.8 F 77-95 16-18 124-136/68-94 98 GENERAL: The patient is awake, alert, and fully oriented, in no acute distress. LUNGS: Breath sounds equal, clear to auscultation bilaterally, no wheezes, no crackles, no accessory muscle use. HEART: Regular rate and rhythm, S1, S2 without murmur, rub or gallop. ABDOMEN: Soft, tender to palpation in RLQ < LLQ. nondistended, normoactive bowel sounds, no guarding. EXTREMITIES: 2+ pulses, warm, well-perfused, no edema. SKIN: Warm, dry, normal turgor, no rashes or lesions noted Laboratory Last Values WBC 5.4 K/mm3 (4.0-10.0) 02/25/19 06:30 RBC 3.81 M/mm3 (4.00-5.60) L 02/25/19 06:30 Hgb 10.8 GM/dL (11.7-16.9) L 02/25/19 06:30 Hct 32.9 % (35.4-49) L 02/25/19 06:30 MCV 86.3 fl (80-96) 02/25/19 06:30 MCH 28.3 pg (25.7-33.7) 02/25/19 06:30 MCHC 32.8 g/dl (32.0-35.9) 02/25/19 06:30 RDW 14.9 % (11.9-15.9) 02/25/19 06:30 Plt Count 245 K/MM3 (134-434) 02/25/19 06:30 MPV 8.6 fl (7.5-11.1) 02/25/19 06:30 Absolute Neuts (auto) 4.8 K/mm3 (1.5-8.0) 02/23/19 04:00 Neutrophils % 56.9 % (42.8-82.8) D 02/23/19 04:00 Lymphocytes % 31.3 % (8-40) D 02/23/19 04:00 Monocytes % 8.6 % (3.8-10.2) 02/23/19 04:00 Eosinophils % 2.0 % (0-4.5) D 02/23/19 04:00 Basophils % 1.2 % (0-2.0) D 02/23/19 04:00 Nucleated RBC % 0 % (0-0) 02/23/19 04:00 ESR 49 mm/hr (0-20) H 02/23/19 03:57 VBG pH 7.33 (7.31-7.41) 02/23/19 01:45 POC VBG pCO2 32.5 mmHg (41-51) L 02/23/19 01:45 POC VBG pO2 152 mmHg (30-40) H 02/23/19 01:45 VBG HCO3 16.8 mmol/L (23-29) L 02/23/19 01:45 VBG O2 Sat (Verito) 99.1 % (70-80) H 02/23/19 01:45 VBG Base Excess -7.8 meq/l (-2-2) L 02/23/19 01:45 Sodium 139 mmol/L (136-145) 02/25/19 06:30 Potassium 4.6 mmol/L (3.5-5.1) 02/25/19 06:30 Chloride 108 mmol/L (98-107) H 02/25/19 06:30 Carbon Dioxide 25 mmol/L (21-32) 02/25/19 06:30 Anion Gap 6 MMOL/L (8-16) L 02/25/19 06:30 BUN 16.0 mg/dL (7-18) 02/25/19 06:30 Creatinine 1.7 mg/dL (0.55-1.3) H 02/25/19 06:30 Est GFR (CKD-EPI)AfAm 50.75 02/25/19 06:30 Est GFR (CKD-EPI)NonAf 43.79 02/25/19 06:30 POC Glucometer 181 UNITS (80-120) 02/25/19 04:21 Random Glucose 136 mg/dL (74-106) H 02/25/19 06:30 Lactic Acid 1.1 mmol/L (0.4-2.0) 02/23/19 01:45 Calcium 9.5 mg/dL (8.5-10.1) 02/25/19 06:30 Phosphorus 2.7 mg/dL (2.5-4.9) 02/25/19 06:30 Magnesium 2.1 mg/dL (1.8-2.4) 02/25/19 06:30 Total Bilirubin 0.2 mg/dL (0.2-1) 02/25/19 06:30 AST 12 U/L (15-37) L 02/25/19 06:30 ALT 17 U/L (13-61) 02/25/19 06:30 Alkaline Phosphatase 91 U/L (45-117) 02/25/19 06:30 Ammonia 15.50 umol/L (11-32) 02/22/19 23:20 C-Reactive Protein 1.2 MG/DL (0.00-0.3) H 02/23/19 03:57 Total Protein 6.3 g/dl (6.4-8.2) L 02/25/19 06:30 Albumin 2.9 g/dl (3.4-5.0) L 02/25/19 06:30 Lipase 411 U/L (73-393) H 02/25/19 06:30 Urine Color Yellow 02/23/19 03:00 Urine Appearance Clear 02/23/19 03:00 Urine pH 5.5 (5.0-8.0) 02/23/19 03:00 Ur Specific Riley 1.017 (1.010-1.035) 02/23/19 03:00 Urine Protein 93 mg/dl (5.0-11.9) H 02/24/19 02:15 Urine Glucose (UA) Trace (NEGATIVE) 02/23/19 03:00 Urine Ketones Negative (NEGATIVE) 02/23/19 03:00 Urine Blood Negative (NEGATIVE) 02/23/19 03:00 Urine Nitrite Negative (NEGATIVE) 02/23/19 03:00 Urine Bilirubin Negative (NEGATIVE) 02/23/19 03:00 Urine Urobilinogen 0.2 mg/dL (0.2-1.0) 02/23/19 03:00 Ur Leukocyte Esterase Negative (NEGATIVE) 02/23/19 03:00 Urine WBC (Auto) 0 /hpf (0-5) 02/23/19 03:00 Urine RBC (Auto) 1 /hpf (0-4) 02/23/19 03:00 Urine Casts (Auto) 1 /lpf (0-8) 02/23/19 03:00 U Epithel Cells (Auto) 0.3 /HPF (0-5/HPF) 02/23/19 03:00 Urine Bacteria (Auto) 0 /hpf (NEGATIVE) 02/23/19 03:00 Ur Random Creatinine 33.0 mg/dL (30-150) 02/23/19 03:00 U Random Total Protein 74.8 mg/dl (0-11.9) H 02/23/19 03:00 Ur Random Sodium 72 MMOL/L (40-220) 02/23/19 02:41 Urine Collection Time 24 HOURS 02/24/19 02:15 Urine Total Volume 2000 mL 02/24/19 02:15 Ur Total Protein 24 Hr 1860 mg/24hr (50-100) H 02/24/19 02:15 Stool Occult Blood Negative (NEGATIVE) 02/22/19 23:20 Blood Type A POSITIVE 02/23/19 10:13 Antibody Screen Negative 02/23/19 03:57 Current Medications Amlodipine Besylate (Norvasc -) 5 mg PO DAILY [facility] Last Admin: 02/25/19 09:26 Dose: 5 mg [place] Butter/Phenylephrine (Preparation H Suppository) 1 each RC BID [facility] Last Admin: 02/25/19 09:28 Dose: 1 each Heparin Sodium (Porcine) (Heparin -) 5,000 unit SQ TID [facility] Last Admin: 02/25/19 06:49 Dose: 5,000 unit Insulin Aspart (Novolog Vial Sliding Scale -) 1 vial SQ [facility]; Protocol Last Admin: 02/25/19 06:50 Dose: Not Given Lisinopril (Prinivil) 5 mg PO DAILY [facility] Last Admin: 02/25/19 09:26 Dose: 5 mg Pantoprazole Sodium (Protonix Iv) 40 mg IVPUSH DAILY [facility] Last Admin: 02/25/19 09:26 Dose: 40 mg Rosuvastatin Calcium (Crestor -) 10 mg PO HS [facility] Last Admin: 02/24/19 21:59 Dose: 10 mg Tamsulosin HCl (Flomax -) 0.4 mg PO DAILY@0830 [facility] Last Admin: 02/25/19 09:26 Dose: 0.[address] Abdomen/Pelvis IMPRESSION: 1. Absence of the left kidney. Has the patient undergone a nephrectomy? 2. Questionable thickening of the left colon. A mild degree of colitis cannot be excluded. 3. No additional evidence of acute pathology within the abdomen or pelvis. Please see above discussion ASSESSMENT/PLAN: 59 yo M PMH HTN, DM, p/w abdominal pain, blood in stool, and diarrhea. Pt is admitted for acute colitis. Acute colitis -pt states symptoms have been resolving, denies blood in stool -CT abdomen/pelvis reviewed. see above - UCx and Bcx negative -C dif negative -s/p flagyl, bactrim, cefoxtin -s/p zosyn ( x2d) as per ID recs -c/w clear liquid diet -recommending GI follow up and colonoscopy in 6 weeks. Possible flex sig this saturday -awaiting stool cultures -surgery recs appreciated, no intervention necessary Urinary retention likely 2/2 BPH -pt endorses sensation of incomplete emptying -c/w tamsulosin -urology recs appreciated, recommended to f/u outpt for cystoscopy, trus, uroflow, PVR -c/w ramos CKD -contacted PCP( Dr. Diaz [phone]), baseline Cr approx 1.6-1.9 -pt has hx of L nephrectomy approx 10 y ago in [facility] , unclear etiology HTN - BP well controlled -consider restarting home meds DM -BGM, ISS -continue to hold home meds. HLD -c/w statin Recent hip surgery -01/2019 -[facility] , pt still getting PT F/E/N -clear liquids DVTppx: Heparin Dispo: monitor on medicine floors until pt is medically optimized Visit type - Emergency Visit Emergency Visit: No - New Patient This patient is new to me today: No - Critical Care Critical Care patient: No - Discharge Referral Referred to [facility] Med P.C.: No ATTENDING PHYSICIAN STATEMENT I saw and evaluated the patient. I reviewed the resident's note and discussed the case with the resident. I agree with the resident's findings and plan as documented. SUBJECTIVE: OBJECTIVE: ASSESSMENT AND PLAN:
--- NOTE | 2019-02-25 15:33 | CON.GI ---
Consult Consult Specialty:: Gastroenterology Referred by:: Dr. Aguilar Reason for Consultation:: Diarrhea, abnormal CT imaging - History of Present Illness History of Present Illness: 58 yo male h/o HTN, DM type 2, Hyperlipidemia, Left nephrectomy, hernia repair, presenting with abdominal and rectal pain with diarrhea x 2-3 days. Pt reports developing loose to watery bm up to 5-6x daily 2-3 days prior to admission. Also reports bright blood mixed with brown stools occurring intermittently, not with every bm. At baseline reports having 1-2 formed bm, denies prior episodes of rectal bleeding. Also reports associated lower abdominal pain and rectal pain, worsening with bm. Had nausea and subjective fever/chills initially, now resolved. Bm frequency improved, had soft bm today though still with lower abdominal discomfort. Denies recent travel or sick contacts though states he may have eaten something at outside restaurant though does not elaborate. CT imaging revealing mild thickening at left colon. FOBT negative. No known family h/o colon ca. Reports last colonoscopy 2 years ago at [facility] by Dr. Read states he was advised 3 year follow up due to h/o colon polyps. [facility] records reviewed, unable to locate endoscopy reports however path from 09/2016 revealing three tubular adenomas. Path from 2013 revealing one tubular adenoma. - History Source History Provided By: Patient, Medical Record - Past Medical History Cardio/Vascular: Yes: HTN, Hyperlipdemia Pulmonary: Yes: Asthma, COPD (uses inhaler daily) Gastrointestinal: Yes: GERD, Other (polyps out on colonoscopy 5 and 2 yrs ago) Renal/: Yes: Renal Inusuff, Other (s/p L nephrectomy for ?infection 2005) Musculoskeletal: Yes: Chronic low back pain, Osteoarthritis Endocrine: Yes: Diabetes Mellitus - Past Surgical History Past Surgical History: Yes: Colonoscopy (5yrs ago and 2 yrs ago), Hernia Repair (laparoscopic left inguinal), Joint Replacement (right hip 2 months ago), Nephrectomy (left 2005 for ?infection) - Alcohol/Substance Use Hx Alcohol Use: No History of Substance Use: reports: None - Smoking History Smoking history: Former smoker Have you smoked in the past 12 months: Yes Aproximately how many cigarettes per day: 7 If you are a former smoker, when did you quit?: December 2018 - Social History ADL: Independent Home Medications - Allergies Allergies/Adverse Reactions: Allergies Allergy/AdvReac Type Severity Reaction Status Date / Time No Known Allergies Allergy Verified 11/29/16 20:11 - Home Medications Home Medications: Ambulatory Orders Amlodipine Besylate [Norvasc -] 5 mg PO DAILY 11/29/16 Aspirin [Giovana Chewable] 81 mg PO DAILY 11/29/16 Glipizide [Glipizide ER] 5 mg PO BID 11/29/16 Loratadine 10 mg PO DAILY 11/29/16 Multivit-Min/Iron Fum/Folic AC [Yylvc-Uozhiyy-Aqvixrvq Tablet] 1 each PO DAILY 11/29/16 Omeprazole 40 mg PO DAILY 11/29/16 Ranitidine HCl 150 mg PO DAILY 11/29/16 Sodium Bicarbonate - 1,300 mg PO DAILY 11/29/16 Dulaglutide [Trulicity] 0.75 mg SQ WEEKLY 02/23/19 Pravastatin Sodium [Pravachol (Nf)] 40 mg PO HS 02/23/19 Cholecalciferol (Vitamin D3) [Vitamin D3] 5,000 unit PO DAILY 02/24/19 Gabapentin 400 mg PO TID 02/24/19 Lisinopril 5 mg PO DAILY 02/24/19 Tiotropium [place] [Spiriva Respimat] 2 puff DAILY 02/24/19 Review of Systems - Review of Systems Constitutional: reports: Weakness Cardiovascular: reports: No Symptoms Respiratory: reports: No Symptoms Gastrointestinal: reports: Abdominal Pain, Diarrhea Physical Exam-GI Vital Signs: Vital Signs Temperature 98.3 F 02/25/19 14:49 Pulse Rate 88 02/25/19 14:49 Respiratory Rate 18 02/25/19 14:49 Blood Pressure 123/72 02/25/19 14:49 O2 Sat by Pulse Oximetry (%) 97 02/25/19 10:00 Constitutional: Yes: Well Nourished, No Distress, Calm Cardiovascular: Yes: WNL, Regular Rate and Rhythm Respiratory: Yes: WNL, Regular, CTA Bilaterally Gastrointestinal Inspection: Yes: WNL ...Palpate: Yes: Other (Abd soft mildly tender in lower abdomen on palpation, non distended, no rebound, guarding or rigidity Rectal exam: pt refused) Labs: CBC, BMP 02/25/19 06:30 02/25/19 06:30 Imaging - Results Cat Scan: Report Reviewed, Image Reviewed Problem List - Problems (1) Diarrhea Assessment/Plan: 58 yo male h/o HTN, DM type 2, Hyperlipidemia, Left nephrectomy, hernia repair, presenting with abdominal and rectal pain with diarrhea x 2-[address] imaging revealing possible mild left colonic thickening. C difficile negative. Suspected self limiting gastroenteritis and possible hemorrhoidal/outlet bleed though need to exclude other infectious and inflammatory etiologies, less likely ischemic. Last colonoscopy in 2017 revealing three tubular adenomas ( path reviewed, unable to locate endoscopy report). -Recommend complete stool infectious workup including ova/parasites and stool cultures -Clear liquid diet for now -Monitor BMs and for evidence of bleeding -If infectious workup negative would consider flex sig tentatively on Saturday Discussed with medicine team Code(s): R19.7 - DIARRHEA, UNSPECIFIED
--- NOTE | 2019-02-25 17:17 | PN ---
Teaching Attending Note Name of Resident: Jazmín Gibbons ATTENDING PHYSICIAN STATEMENT I saw and evaluated the patient. I reviewed the resident's note and discussed the case with the resident. I agree with the resident's findings and plan as documented. SUBJECTIVE: Feels hungry and wants to eat but complains of ongoing LLQ abdominal pain. No further diarrhea. No nausea/vomiting. No fever/chills. OBJECTIVE: Afebrile, Hemodynamicaly Stable. Last Vital Signs Temp Pulse Resp BP Pulse Ox 98.3 F 88 18 123/72 97 02/25/19 14:49 02/25/19 14:49 02/25/19 14:49 02/25/19 14:49 02/25/19 10:00 Heart - S1, S2, RRR Lungs - clear to auscultation Abdomen - Soft, mild LLQ tenderness. Bowel Sounds normal. Extremities - no edema, no calf tenderness. Laboratory Results - last 24 hr 02/24/19 02/25/19 02/25/19 21:55 04:21 06:30 WBC 5.4 RBC 3.81 L Hgb 10.8 L Hct 32.9 L MCV 86.3 MCH 28.3 MCHC 32.8 RDW 14.9 Plt Count 245 MPV 8.6 Sodium Potassium Chloride Carbon Dioxide Anion Gap BUN Creatinine Est GFR (CKD-EPI)AfAm Est GFR (CKD-EPI)NonAf POC Glucometer 145 181 Random Glucose Calcium Phosphorus Magnesium Total Bilirubin AST ALT Alkaline Phosphatase Total Protein Albumin Lipase 02/25/19 02/25/19 06:30 11:30 WBC RBC Hgb Hct MCV MCH MCHC RDW Plt Count MPV Sodium 139 Potassium 4.6 Chloride 108 H Carbon Dioxide 25 Anion Gap 6 L BUN 16.0 Creatinine 1.7 H Est GFR (CKD-EPI)AfAm 50.75 Est GFR (CKD-EPI)NonAf 43.79 POC Glucometer 181 Random Glucose 136 H Calcium 9.5 Phosphorus 2.7 Magnesium 2.1 Total Bilirubin 0.2 AST 12 L ALT 17 Alkaline Phosphatase 91 Total Protein 6.3 L Albumin 2.9 L Lipase 411 H Current Medications Generic Name Dose Route Start Last Admin Trade Name Freq PRN Reason Stop Dose Admin Amlodipine Besylate 5 mg 02/24/19 13:45 02/25/19 09:26 Norvasc - PO 5 mg DAILY [facility] Administration [place] Butter/Phenylephrine 1 each 02/23/19 10:00 02/25/19 09:28 Preparation H Suppository RC 1 each BID [facility] Administration Heparin Sodium (Porcine) 5,000 unit 02/23/19 14:00 02/25/19 13:15 Heparin - SQ 5,000 unit TID [facility] Administration Insulin Aspart 1 vial 02/24/19 16:30 02/25/19 17:03 Novolog Vial Sliding Scale - SQ Not Given ACHS [facility] Protocol Lisinopril 5 mg 02/24/19 13:45 02/25/19 09:26 Prinivil PO 5 mg DAILY [facility] Administration Pantoprazole Sodium 40 mg 02/23/19 01:56 02/25/19 09:26 Protonix Iv IVPUSH 40 mg DAILY [facility] Administration Rosuvastatin Calcium 10 mg 02/24/19 22:00 02/24/19 21:59 Crestor - PO 10 mg HS [facility] Administration Tamsulosin HCl 0.4 mg 02/24/19 20:00 02/25/19 09:26 Flomax - PO 0.4 mg DAILY@0830 [facility] Administration Home Medications Medication Instructions Recorded Amlodipine Besylate [Norvasc -] 5 mg PO DAILY 11/29/16 Aspirin [Giovana Chewable] 81 mg PO DAILY 11/29/16 Glipizide [Glipizide ER] 5 mg PO BID 11/29/16 Multivit-Min/Iron Fum/Folic AC 1 each PO DAILY 11/29/16 [Birpn-Znwwirc-Fbbotxwb Tablet] RX: Loratadine 10 mg PO DAILY 11/29/16 RX: Omeprazole 40 mg PO DAILY 11/29/16 RX: Ranitidine HCl 150 mg PO DAILY 11/29/16 RX: Sodium Bicarbonate - 1,300 mg PO DAILY 11/29/16 Dulaglutide [Trulicity] 0.75 mg SQ WEEKLY 02/23/19 Pravastatin Sodium [Pravachol (Nf)] 40 mg PO HS 02/23/19 Cholecalciferol (Vitamin D3) 5,000 unit PO DAILY 02/24/19 [Vitamin D3] RX: Gabapentin 400 mg PO TID 02/24/19 RX: Lisinopril 5 mg PO DAILY 02/24/19 Tiotropium [place] [Spiriva 2 puff DAILY 02/24/19 Respimat] ASSESSMENT AND PLAN: 58 year old male with history of COPD, HTN, DM 2, s/p L Nephrectomy, s/p recent bilateral hip surgery, presents with abdominal pain with associated bloody diarrhea. 1. Acute Colitis, etiology unclear. Bloody diarrhea resolved. Ongoing LLQ tenderness. Afebrile, no leukocytosis. Received flagyl/cefoxitin/bactrim in the ER, subsequently Zosyn, now all Abx discontinued by ID. Afebrile, hemodynamically Stable. Tolerating clear liquid diet. GI consulted for ongoing LLQ abdominal pain and tenderness. Cdiff negative, stool leukocytes negative. Stool requested for culture and for ova and parasites. Possible Flexible Sigmoidoscopy on 02/27 as per GI. (Last colonoscopy 2016, positive for tubular adenomas) 2. Urinary retention sec to likely BPH requiring ramos insertion - seen by urology - for discharge with Ramos and Tamsulosin, with urology outpatient follow up for Cystoscopy/TRUS. Urine Cx negative. 3. TIM on CKD 3 - renal function improved. No hydronephrosis or obstruction on imaging. s/p Nephrectomy > 10 years ago, reason unclear. Baseline Creatinine 1.6 - 1.9. 4. DM 2 - no further episodes of hypoglycemia. Continue Sliding Scale Novolog. 5. HTN - Continue Norvasc, Lisinopril. 6. COPD - Stable. Continue Spiriva. 7. HLD - Continue Statin. DVT Px - Heparin SQ (no further bloody diarrhea) GI Px - PPI
[2019-02-25] MEDS ORDERED: INSULIN (NOVOLOG) ASPART 100 UNITS/ML 10ML VIAL ONE (21:34)
[2019-02-25] MEDS: ROSUVASTATIN CA 10 MG TABLET (FP) PO SCH (22:06)
[2019-02-26] MEDS ORDERED: PT OWN MED DRAWER 7, Y5N ONE (05:17)
[2019-02-26] MEDS: INSULIN SLIDING SCALE (NOVOLOG) 1 VIAL SQ SCH ×4 (06:36→22:05)
[2019-02-26] MEDS: HEPARIN NA (PORCINE) 5,000 UNITS/ML 1ML VIAL SQ SCH ×2 (06:36→13:07)
[2019-02-26 07:57] LABS: HEMATOCRIT 34.8 % (35.4-49); HEMOGLOBIN 11.3 GM/dL (11.7-16.9); MCH 28.2 pg (25.7-33.7); MCHC 32.6 g/dl (32.0-35.9); MEAN CELL VOLUME 86.4 fl (80-96); PLATELET COUNT 274 K/MM3 (134-434); RBC 4.03 M/mm3 (4.00-5.60); RDW 15.5 % (11.9-15.9); WHITE BLOOD COUNT 5.5 K/mm3 (4.0-10.0)
[2019-02-26 08:26] LABS: CALCIUM 9.7 mg/dL (8.5-10.1); CREATININE 1.5 mg/dL (0.55-1.3); MAGNESIUM 1.8 mg/dL (1.8-2.4); POTASSIUM 4.6 mmol/L (3.5-5.1)
[2019-02-26] MEDS: TAMSULOSIN HCL 0.4 MG CAP PO SCH (09:35)
[2019-02-26] MEDS: PANTOPRAZOLE SODIUM 40 MG VIAL IVPUSH SCH (09:35)
[2019-02-26] MEDS: amLODIPine BESYLATE 5 MG TABLET (FP) PO SCH (09:35)
[2019-02-26] MEDS: LISINOPRIL 5 MG TABLET (FP) PO SCH (09:35)
[2019-02-26] MEDS: PHENYLEPHRINE HCL/COCOA BUTTER SUPPOSITORY RC SCH ×2 (09:42→22:05)
--- NOTE | 2019-02-26 14:08 | PN ---
Physical Exam: SUBJECTIVE: Patient seen and examined at bedside. pt states that he had one dark stool. he states he had abdominal and rectal pain. OBJECTIVE: Vital Signs Period Temp Pulse Resp BP Sys/Bosch Pulse Ox Last 24 Hr 98.3 F-99.0 F 75-89 16-18 116-127/64-73 97-98 GENERAL: The patient is awake, alert, and fully oriented, in no acute distress. LUNGS: Breath sounds equal, clear to auscultation bilaterally, no wheezes, no crackles, no accessory muscle use. HEART: Regular rate and rhythm, S1, S2 without murmur, rub or gallop. ABDOMEN: Soft, nontender, nondistended, normoactive bowel sounds, no guarding EXTREMITIES: 2+ pulses, warm, well-perfused, no edema. SKIN: Warm, dry, normal turgor, no rashes or lesions noted 02/26/19 02/26/19 02/26/19 06:29 06:42 06:42 WBC 5.5 RBC 4.03 Hgb 11.3 L Hct 34.8 L MCV 86.4 MCH 28.2 MCHC 32.6 RDW 15.5 Plt Count 274 MPV 9.0 Sodium 138 Potassium 4.6 Chloride 107 Carbon Dioxide 24 Anion Gap 7 L BUN 16.0 Creatinine 1.5 H Est GFR (CKD-EPI)AfAm 59.05 Est GFR (CKD-EPI)NonAf 50.95 POC Glucometer 123 Random Glucose 126 H Calcium 9.7 Phosphorus 3.0 Magnesium 1.8 Current Medications Amlodipine Besylate (Norvasc -) 5 mg PO DAILY [facility] Last Admin: 02/26/19 09:35 Dose: 5 mg [place] Butter/Phenylephrine (Preparation H Suppository) 1 each RC BID [facility] Last Admin: 02/26/19 09:42 Dose: 1 each Heparin Sodium (Porcine) (Heparin -) 5,000 unit SQ TID [facility] Last Admin: 02/26/19 13:07 Dose: 5,000 unit Insulin Aspart (Novolog Vial Sliding Scale -) 1 vial SQ ACHS [facility]; Protocol Last Admin: 02/26/19 11:16 Dose: Not Given Lisinopril (Prinivil) 5 mg PO DAILY [facility] Last Admin: 02/26/19 09:35 Dose: 5 mg Pantoprazole Sodium (Protonix Iv) 40 mg IVPUSH DAILY [facility] Last Admin: 02/26/19 09:35 Dose: 40 mg Rosuvastatin Calcium (Crestor -) 10 mg PO HS [facility] Last Admin: 02/25/19 22:06 Dose: 10 mg Tamsulosin HCl (Flomax -) 0.4 mg PO DAILY@0830 [facility] Last Admin: 02/26/19 09:35 Dose: 0.[address] Abdomen/Pelvis IMPRESSION: 1. Absence of the left kidney. Has the patient undergone a nephrectomy? 2. Questionable thickening of the left colon. A mild degree of colitis cannot be excluded. 3. No additional evidence of acute pathology within the abdomen or pelvis. Please see above discussion ASSESSMENT/PLAN: 59 yo M PMH HTN, DM, p/w abdominal pain, blood in stool, and diarrhea. Pt is admitted for acute colitis. Acute colitis -CT abdomen/pelvis reviewed. see above - UCx and Bcx negative -C dif negative -s/p flagyl, bactrim, cefoxtin -s/p zosyn ( x2d) as per ID recs -c/w clear liquid diet -recommending GI follow up and colonoscopy in 6 weeks. Possible flex sig tomorrow -awaiting stool cultures -surgery recs appreciated, no intervention necessary Urinary retention likely 2/2 BPH -pt endorses sensation of incomplete emptying -c/w tamsulosin -urology recs appreciated, recommended to f/u outpt for cystoscopy, trus, uroflow, PVR -c/w ramos CKD -contacted PCP( Dr. Diaz [phone]), baseline Cr approx 1.6-1.9 -pt has hx of L nephrectomy approx 10 y ago in [facility] , unclear etiology HTN - BP well controlled -consider restarting home meds DM -BGM, ISS -continue to hold home meds. HLD -c/w statin Recent hip surgery -01/2019 - hospital , pt still getting PT F/E/N -clear liquids DVTppx: Heparin Dispo: monitor on medicine floors until pt is medically optimized Visit type - Emergency Visit Emergency Visit: No - New Patient This patient is new to me today: No - Critical Care Critical Care patient: No - Discharge Referral Referred to [facility] Med P.C.: Yes Physician Referral: Logan Schwarz DO (GI) ATTENDING PHYSICIAN STATEMENT I saw and evaluated the patient. I reviewed the resident's note and discussed the case with the resident. I agree with the resident's findings and plan as documented. SUBJECTIVE: OBJECTIVE: ASSESSMENT AND PLAN:
--- NOTE | 2019-02-26 15:04 | PN ---
Teaching Attending Note Name of Resident: Jazmín Gibbons ATTENDING PHYSICIAN STATEMENT I saw and evaluated the patient. I reviewed the resident's note and discussed the case with the resident. I agree with the resident's findings and plan as documented. SUBJECTIVE: Tolerating oral intake. Reports some ongoing LLQ abdominal pain. Reports dark stool. No further diarrhea. No nausea/vomiting. No fever/chills. OBJECTIVE: Afebrile, Hemodynamicaly Stable. Last Vital Signs Temp Pulse Resp BP Pulse Ox 97.3 F L 80 18 120/59 L 98 02/26/19 14:35 02/26/19 14:35 02/26/19 14:35 02/26/19 14:35 02/26/19 10:00 Heart - S1, S2, RRR Lungs - clear to auscultation Abdomen - Soft, mild LLQ tenderness. Bowel Sounds normal. Extremities - no edema, no calf tenderness. - ramos in situ, clear urine. Laboratory Results - last 24 hr 02/25/19 02/25/19 02/25/19 06:43 17:01 22:03 WBC RBC Hgb Hct MCV MCH MCHC RDW Plt Count MPV Sodium Potassium Chloride Carbon Dioxide Anion Gap BUN Creatinine Est GFR (CKD-EPI)AfAm Est GFR (CKD-EPI)NonAf POC Glucometer 135 201 135 Random Glucose Calcium Phosphorus Magnesium 02/26/19 02/26/19 02/26/19 06:29 06:42 06:42 WBC 5.5 RBC 4.03 Hgb 11.3 L Hct 34.8 L MCV 86.4 MCH 28.2 MCHC 32.6 RDW 15.5 Plt Count 274 MPV 9.0 Sodium 138 Potassium 4.6 Chloride 107 Carbon Dioxide 24 Anion Gap 7 L BUN 16.0 Creatinine 1.5 H Est GFR (CKD-EPI)AfAm 59.05 Est GFR (CKD-EPI)NonAf 50.95 POC Glucometer 123 Random Glucose 126 H Calcium 9.7 Phosphorus 3.0 Magnesium 1.8 02/26/19 11:15 WBC RBC Hgb Hct MCV MCH MCHC RDW Plt Count MPV Sodium Potassium Chloride Carbon Dioxide Anion Gap BUN Creatinine Est GFR (CKD-EPI)AfAm Est GFR (CKD-EPI)NonAf POC Glucometer 170 Random Glucose Calcium Phosphorus Magnesium Current Medications Generic Name Dose Route Start Last Admin Trade Name Freq PRN Reason Stop Dose Admin Amlodipine Besylate 5 mg 08/13/19 13:45 02/26/19 09:35 Norvasc - PO 5 mg DAILY ANTHONY Administration [place] Butter/Phenylephrine 1 each 02/23/19 10:00 02/26/19 09:42 Preparation H Suppository RC 1 each BID ANTHONY Administration Heparin Sodium (Porcine) 5,000 unit 02/23/19 14:00 02/26/19 13:07 Heparin - SQ 5,000 unit TID [facility] Administration Insulin Aspart 1 vial 02/24/19 16:30 02/26/19 11:16 Novolog Vial Sliding Scale - SQ Not Given ACHS [facility] Protocol Lisinopril 5 mg 02/24/19 13:45 02/26/19 09:35 Prinivil PO 5 mg DAILY ANTHONY Administration Pantoprazole Sodium 40 mg 02/23/19 01:56 02/26/19 09:35 Protonix Iv IVPUSH 40 mg DAILY ANTHONY Administration Rosuvastatin Calcium 10 mg 02/24/19 22:00 02/25/19 22:06 Crestor - PO 10 mg HS [facility] Administration Tamsulosin HCl 0.4 mg 02/24/19 20:00 02/26/19 09:35 Flomax - PO 0.4 mg DAILY@0830 [facility] Administration Home Medications Medication Instructions Recorded Amlodipine Besylate [Norvasc -] 5 mg PO DAILY 11/29/16 Aspirin [Giovana Chewable] 81 mg PO DAILY 11/29/16 Glipizide [Glipizide ER] 5 mg PO BID 11/29/16 Multivit-Min/Iron Fum/Folic AC 1 each PO DAILY 11/29/16 [Ardcx-Vforgqg-Yqzlcuii Tablet] RX: Loratadine 10 mg PO DAILY 11/29/16 RX: Omeprazole 40 mg PO DAILY 11/29/16 RX: Ranitidine HCl 150 mg PO DAILY 11/29/16 RX: Sodium Bicarbonate - 1,300 mg PO DAILY 11/29/16 Dulaglutide [Trulicity] 0.75 mg SQ WEEKLY 02/23/19 Pravastatin Sodium [Pravachol (Nf)] 40 mg PO HS 02/23/19 Cholecalciferol (Vitamin D3) 5,000 unit PO DAILY 02/24/19 [Vitamin D3] RX: Gabapentin 400 mg PO TID 02/24/19 RX: Lisinopril 5 mg PO DAILY 02/24/19 Tiotropium [place] [Spiriva 2 puff DAILY 02/24/19 Respimat] ASSESSMENT AND PLAN: 58 year old male with history of COPD, HTN, DM 2, s/p L Nephrectomy, s/p recent bilateral hip surgery, presents with abdominal pain with associated bloody diarrhea. 1. Acute Colitis, etiology unclear. Diarrhea resolved. Ongoing LLQ tenderness. Afebrile, no leukocytosis. Received flagyl/cefoxitin/bactrim in the ER, subsequently Zosyn, now all Abx discontinued by ID. Afebrile, hemodynamically Stable. Tolerating clear liquid diet. GI consulted for ongoing LLQ abdominal pain and tenderness - for flex sigmoidoscopy tomorrow. (Last colonoscopy 2016, positive for tubular adenomas) Cdiff negative, stool leukocytes negative. Stool requested for culture and for ova and parasites - pending. 2. Urinary retention sec to likely BPH requiring ramos insertion - seen by urology - for discharge with Ramos and Tamsulosin, with urology outpatient follow up for Cystoscopy/TRUS. Urine Cx negative. 3. TIM on CKD 3 - renal function improved. No hydronephrosis or obstruction on imaging. s/p Nephrectomy > 10 years ago, reason unclear. Baseline Creatinine 1.6 - 1.9. 4. DM 2 - no further episodes of hypoglycemia. Continue Sliding Scale Novolog. 5. HTN - Continue Norvasc, Lisinopril. 6. COPD - Stable. Continue Spiriva. 7. HLD - Continue Statin. DVT Px - will hold Heparin prior to sigmoidoscopy GI Px - PPI
--- NOTE | 2019-02-26 15:16 | PN ---
Progress Note, Physician History of Present Illness: patient stable no issues - Current Medication List Current Medications: Active Medications Amlodipine Besylate (Norvasc -) 5 mg PO DAILY [facility] Last Admin: 02/26/19 09:35 Dose: 5 mg [place] Butter/Phenylephrine (Preparation H Suppository) 1 each RC BID [facility] Last Admin: 02/26/19 09:42 Dose: 1 each Heparin Sodium (Porcine) (Heparin -) 5,000 unit SQ TID [facility] Last Admin: 02/26/19 13:07 Dose: 5,000 unit Insulin Aspart (Novolog Vial Sliding Scale -) 1 vial SQ ACHS [facility]; Protocol Last Admin: 02/26/19 11:16 Dose: Not Given Lisinopril (Prinivil) 5 mg PO DAILY [facility] Last Admin: 02/26/19 09:35 Dose: 5 mg Pantoprazole Sodium (Protonix Iv) 40 mg IVPUSH DAILY [facility] Last Admin: 02/26/19 09:35 Dose: 40 mg Rosuvastatin Calcium (Crestor -) 10 mg PO HS [facility] Last Admin: 02/25/19 22:06 Dose: 10 mg Tamsulosin HCl (Flomax -) 0.4 mg PO DAILY@0830 [facility] Last Admin: 02/26/19 09:35 Dose: 0.4 mg - Objective Vital Signs: Vital Signs Temperature 97.3 F L 02/26/19 15:05 Pulse Rate 80 02/26/19 15:05 Respiratory Rate 18 02/26/19 15:05 Blood Pressure 120/59 L 02/26/19 15:05 O2 Sat by Pulse Oximetry (%) 98 02/26/19 10:00 Constitutional: Yes: No Distress, Calm Cardiovascular: Yes: Regular Rate and Rhythm Respiratory: Yes: Regular, CTA Bilaterally Gastrointestinal: Yes: Normal Bowel Sounds, Soft Musculoskeletal: Yes: WNL Extremities: Yes: WNL Neurological: Yes: Alert, Oriented Psychiatric: Yes: Alert, Oriented Labs: CBC, BMP 02/26/19 06:42 02/26/19 06:42 Assessment/Plan Problem List - Problems (1) Acute pancreatitis without infection or necrosis Code(s): K85.90 - ACUTE PANCREATITIS WITHOUT NECROSIS OR INFECTION, UNSP Qualifiers: Pancreatitis type: drug induced Qualified Code(s): K85.30 - Drug induced acute pancreatitis without necrosis or infection (2) Epigastric abdominal tenderness without rebound tenderness Code(s): R10.816 - EPIGASTRIC ABDOMINAL TENDERNESS (3) Suprapubic pain Code(s): R10.2 - PELVIC AND PERINEAL PAIN (4) Urinary retention due to benign prostatic hyperplasia Code(s): N40.1 - BENIGN PROSTATIC HYPERPLASIA WITH LOWER URINARY TRACT SYMP; R33.8 - OTHER RETENTION OF URINE (5) Noninfectious colitis Code(s): K52.9 - NONINFECTIVE GASTROENTERITIS AND COLITIS, UNSPECIFIED (6) Diabetes mellitus with stage 2 chronic kidney disease, with long-term current use of insulin Code(s): E11.22 - TYPE 2 DIABETES MELLITUS W DIABETIC CHRONIC KIDNEY DISEASE; N18.2 - CHRONIC KIDNEY DISEASE, STAGE 2 (MILD); Z79.4 - [employer] (CURRENT) USE OF INSULIN Qualifiers: Diabetes mellitus type: type 2 Qualified Code(s): E11.22 - Type 2 diabetes mellitus with diabetic chronic kidney disease; N18.2 - Chronic kidney disease, stage 2 (mild); Z79.4 - senior care (current) use of insulin (7) Hypertension Code(s): I10 - ESSENTIAL (PRIMARY) HYPERTENSION Qualifiers: Hypertension type: essential hypertension Qualified Code(s): I10 - Essential (primary) hypertension (8) Hyperlipidemia Code(s): E78.5 - HYPERLIPIDEMIA, UNSPECIFIED Qualifiers: Hyperlipidemia type: unspecified Qualified Code(s): E78.5 - Hyperlipidemia , unspecified (9) History of left nephrectomy Code(s): Z90.5 - ACQUIRED ABSENCE OF KIDNEY plan continue current mgmt gi on board rest as per the team
[2019-02-26] MEDS: ROSUVASTATIN CA 10 MG TABLET (FP) PO SCH (22:05)
--- NOTE | 2019-02-27 01:13 | PN.GI ---
GI Progress Note Subjective: diarrhea improving some left sided abdominal pain - Objective Vital Signs: Vital Signs Temperature 98.0 F 02/26/19 22:00 Pulse Rate 76 02/26/19 22:00 Respiratory Rate 16 02/26/19 22:00 Blood Pressure 138/78 02/26/19 22:00 O2 Sat by Pulse Oximetry (%) 98 02/26/19 10:00 Constitutional: Calm Eyes: No: Sclera Icterus Cardiovascular: Yes: Regular Rate and Rhythm Respiratory: Yes: CTA Bilaterally Gastrointestinal Inspection: No: Distention ...Auscultate: Yes: Normoactive Bowel Sounds ...Palpate: Yes: Tenderness (Mild TTP LLQ) ...Percussion: No: Tympanitic Edema: No (No LE edema) Neurological: Yes: Alert Labs: CBC, BMP 02/26/19 06:42 02/26/19 06:42 Problem List - Problems (1) Diarrhea Assessment/Plan: Improving C. Diff negative Stool culture still pending Ordered tap water enema in the morning for possible flex sig Code(s): R19.7 - DIARRHEA, UNSPECIFIED
[2019-02-27] MEDS: INSULIN SLIDING SCALE (NOVOLOG) 1 VIAL SQ SCH ×4 (06:14→21:52)
[2019-02-27 08:53] LABS: HEMATOCRIT 35.8 % (35.4-49); HEMOGLOBIN 11.8 GM/dL (11.7-16.9); MCH 28.3 pg (25.7-33.7); MCHC 32.8 g/dl (32.0-35.9); MEAN CELL VOLUME 86.4 fl (80-96); MEAN PLT VOLUME 8.8 fl (7.5-11.1); PLATELET COUNT 277 K/MM3 (134-434); RBC 4.15 M/mm3 (4.00-5.60); RDW 15.1 % (11.9-15.9); WHITE BLOOD COUNT 4.6 K/mm3 (4.0-10.0)
--- NOTE | 2019-02-27 08:57 | PN ---
Progress Note, Physician History of Present Illness: stable for colonoscopy - Current Medication List Current Medications: Active Medications Amlodipine Besylate (Norvasc -) 5 mg PO DAILY [facility] Last Admin: 02/26/19 09:35 Dose: 5 mg [place] Butter/Phenylephrine (Preparation H Suppository) 1 each RC BID [facility] Last Admin: 02/26/19 22:05 Dose: 1 each Heparin Sodium (Porcine) (Heparin -) 5,000 unit SQ TID [facility] Last Admin: 02/26/19 13:07 Dose: 5,000 unit Insulin Aspart (Novolog Vial Sliding Scale -) 1 vial SQ ACHS [facility]; Protocol Last Admin: 02/27/19 06:14 Dose: Not Given Lisinopril (Prinivil) 5 mg PO DAILY [facility] Last Admin: 02/26/19 09:35 Dose: 5 mg Pantoprazole Sodium (Protonix Iv) 40 mg IVPUSH DAILY [facility] Last Admin: 02/26/19 09:35 Dose: 40 mg Rosuvastatin Calcium (Crestor -) 10 mg PO HS [facility] Last Admin: 02/26/19 22:05 Dose: 10 mg Tamsulosin HCl (Flomax -) 0.4 mg PO DAILY@0830 [facility] Last Admin: 02/26/19 09:35 Dose: 0.4 mg - Objective Vital Signs: Vital Signs Temperature 97.5 F L 02/27/19 04:55 Pulse Rate 73 02/27/19 04:55 Respiratory Rate 16 02/27/19 04:55 Blood Pressure 107/70 02/27/19 04:55 O2 Sat by Pulse Oximetry (%) 100 02/26/19 22:00 Constitutional: Yes: No Distress, Calm Cardiovascular: Yes: Regular Rate and Rhythm Respiratory: Yes: Regular, CTA Bilaterally Gastrointestinal: Yes: Normal Bowel Sounds, Soft Genitourinary: Yes: [place] Present Musculoskeletal: Yes: WNL Extremities: Yes: WNL Neurological: Yes: Alert, Oriented Psychiatric: Yes: Alert, Oriented Assessment/Plan Problem List - Problems (1) Acute pancreatitis without infection or necrosis Code(s): K85.90 - ACUTE PANCREATITIS WITHOUT NECROSIS OR INFECTION, UNSP Qualifiers: Pancreatitis type: drug induced Qualified Code(s): K85.30 - Drug induced acute pancreatitis without necrosis or infection (2) Epigastric abdominal tenderness without rebound tenderness Code(s): R10.816 - EPIGASTRIC ABDOMINAL TENDERNESS (3) Suprapubic pain Code(s): R10.2 - PELVIC AND PERINEAL PAIN (4) Urinary retention due to benign prostatic hyperplasia Code(s): N40.1 - BENIGN PROSTATIC HYPERPLASIA WITH LOWER URINARY TRACT SYMP; R33.8 - OTHER RETENTION OF URINE (5) Noninfectious colitis Code(s): K52.9 - NONINFECTIVE GASTROENTERITIS AND COLITIS, UNSPECIFIED (6) Diabetes mellitus with stage 2 chronic kidney disease, with long-term current use of insulin Code(s): E11.22 - TYPE 2 DIABETES MELLITUS W DIABETIC CHRONIC KIDNEY DISEASE; N18.2 - CHRONIC KIDNEY DISEASE, STAGE 2 (MILD); Z79.4 - [place]AIL (CURRENT) USE OF INSULIN Qualifiers: Diabetes mellitus type: type 2 Qualified Code(s): E11.22 - Type 2 diabetes mellitus with diabetic chronic kidney disease; N18.2 - Chronic kidney disease, stage 2 (mild); Z79.4 - tank terminal gauger (current) use of insulin (7) Hypertension Code(s): I10 - ESSENTIAL (PRIMARY) HYPERTENSION Qualifiers: Hypertension type: essential hypertension Qualified Code(s): I10 - Essential (primary) hypertension (8) Hyperlipidemia Code(s): E78.5 - HYPERLIPIDEMIA, UNSPECIFIED Qualifiers: Hyperlipidemia type: unspecified Qualified Code(s): E78.5 - Hyperlipidemia , unspecified (9) History of left nephrectomy Code(s): Z90.5 - ACQUIRED ABSENCE OF KIDNEY plan continue current mgmt await for colonoscopy rest as per the team
[2019-02-27 09:16] LABS: ALBUMIN 3.1 g/dl (3.4-5.0); BILIRUBIN,TOTAL 0.4 mg/dL (0.2-1); BLOOD UREA NITROGEN 15.8 mg/dL (7-18); CALCIUM 9.9 mg/dL (8.5-10.1); CREATININE 1.9 mg/dL (0.55-1.3); MAGNESIUM 1.6 mg/dL (1.8-2.4); TOT PROT 6.7 g/dl (6.4-8.2)
[2019-02-27] MEDS: TAMSULOSIN HCL 0.4 MG CAP PO SCH (10:02)
[2019-02-27] MEDS: amLODIPine BESYLATE 5 MG TABLET (FP) PO SCH (10:02)
[2019-02-27] MEDS: LISINOPRIL 5 MG TABLET (FP) PO SCH (10:02)
[2019-02-27] MEDS: PANTOPRAZOLE SODIUM 40 MG VIAL IVPUSH SCH (10:03)
[2019-02-27] MEDS: PHENYLEPHRINE HCL/COCOA BUTTER SUPPOSITORY RC SCH ×2 (11:51→22:45)
--- NOTE | 2019-02-27 12:48 | PN ---
Progress Note (short form) - Note Progress Note: Flex sig complete. report placed in procedural section of physical chart and will be scanned into [employer] Problem List - Problems (1) Diarrhea Code(s): R19.7 - DIARRHEA, UNSPECIFIED
--- NOTE | 2019-02-27 15:15 | PN ---
Physical Exam: SUBJECTIVE: Patient seen and examined at bedside. pt has some abdominal discomfort and is upset about not eating. OBJECTIVE: Vital Signs Period Temp Pulse Resp BP Sys/Bosch Pulse Ox Last 24 Hr 97.5 F-98.2 F 73-95 16-20 105-138/59-78 96-100 GENERAL: The patient is awake, alert, and fully oriented, in no acute distress. LUNGS: Breath sounds equal, clear to auscultation bilaterally, no wheezes, no crackles, no accessory muscle use. HEART: Regular rate and rhythm, S1, S2 without murmur, rub or gallop. ABDOMEN: Soft, tender to palpation RLQ, LLQ, epigastrium, nondistended, normoactive bowel sounds, no guarding EXTREMITIES: 2+ pulses, warm, well-perfused, no edema. SKIN: Warm, dry, normal turgor, no rashes or lesions noted Laboratory Results - last 24 hr 02/27/19 02/27/19 02/27/19 06:13 07:47 07:47 WBC 4.6 RBC 4.15 Hgb 11.8 Hct 35.8 MCV 86.4 MCH 28.3 MCHC 32.8 RDW 15.1 Plt Count 277 MPV 8.8 Sodium 135 L Potassium 5.0 Chloride 101 Carbon Dioxide 28 Anion Gap 6 L BUN 15.8 Creatinine 1.9 H Est GFR (CKD-EPI)AfAm 44.37 Est GFR (CKD-EPI)NonAf 38.28 POC Glucometer 147 Random Glucose 162 H Calcium 9.9 Phosphorus 3.0 Magnesium 1.6 L Total Bilirubin 0.4 AST 23 ALT 31 Alkaline Phosphatase 105 Total Protein 6.7 Albumin 3.1 L Current Medications Amlodipine Besylate (Norvasc -) 5 mg PO DAILY [facility] Last Admin: 02/27/19 10:02 Dose: 5 mg [place] Butter/Phenylephrine (Preparation H Suppository) 1 each RC BID [facility] Last Admin: 02/27/19 11:51 Dose: Not Given Heparin Sodium (Porcine) (Heparin -) 5,000 unit SQ TID [facility] Last Admin: 02/26/19 13:07 Dose: 5,000 unit Insulin Aspart (Novolog Vial Sliding Scale -) 1 vial SQ ACHS [facility]; Protocol Last Admin: 02/27/19 11:51 Dose: Not Given Lisinopril (Prinivil) 5 mg PO DAILY [facility] Last Admin: 02/27/19 10:02 Dose: 5 mg Pantoprazole Sodium (Protonix Iv) 40 mg IVPUSH DAILY [facility] Last Admin: 02/27/19 10:03 Dose: 40 mg Rosuvastatin Calcium (Crestor -) 10 mg PO HS [facility] Last Admin: 02/26/19 22:05 Dose: 10 mg Tamsulosin HCl (Flomax -) 0.4 mg PO DAILY@0830 [facility] Last Admin: 02/27/19 10:02 Dose: 0.[address] Abdomen/Pelvis IMPRESSION: 1. Absence of the left kidney. Has the patient undergone a nephrectomy? 2. Questionable thickening of the left colon. A mild degree of colitis cannot be excluded. 3. No additional evidence of acute pathology within the abdomen or pelvis. Please see above discussion ASSESSMENT/PLAN: 59 yo M PMH HTN, DM, p/w abdominal pain, blood in stool, and diarrhea. Pt is admitted for acute colitis. Acute colitis -CT abdomen/pelvis reviewed. see above -s/p flex sig showing scattered diverticula, possible resolving self limited colitis, large internal hemorrhoids - UCx and Bcx negative -C dif negative -s/p flagyl, bactrim, cefoxtin -s/p zosyn ( x2d) as per ID recs -c/w lactose free diet, tolerating diet -recommending GI follow up and colonoscopy in 6 weeks. - stool cultures negative -surgery recs appreciated, no intervention necessary Urinary retention likely 2/2 BPH -pt endorses sensation of incomplete emptying -c/w tamsulosin -urology recs appreciated, recommended to f/u outpt for cystoscopy, trus, uroflow, PVR -c/w ramos CKD -contacted PCP( Dr. Diaz [phone]), baseline Cr approx 1.6-1.9 -pt has hx of L nephrectomy approx 10 y ago in [facility] , unclear etiology HTN - BP well controlled -consider restarting home meds DM -BGM, ISS -continue to hold home meds. HLD -c/w statin Recent hip surgery -01/2019 -[facility] , pt still getting PT F/E/N -lactose free/ low sodium diet DVTppx: Heparin Dispo: monitor on medicine floors until pt is medically optimized , possible DC tomorrow Visit type - Emergency Visit Emergency Visit: No - New Patient This patient is new to me today: No - Critical Care Critical Care patient: No - Discharge Referral Physician Referral: Logan Schwarz DO (GI) ATTENDING PHYSICIAN STATEMENT I saw and evaluated the patient. I reviewed the resident's note and discussed the case with the resident. I agree with the resident's findings and plan as documented. SUBJECTIVE: OBJECTIVE: ASSESSMENT AND PLAN:
[2019-02-27] MEDS ORDERED: MAGNESIUM SULF 50% (8.12 MEQ/2 ML-1 GM VIAL) IVPB ONE ×2 (16:09→17:29)
--- NOTE | 2019-02-27 17:39 | PN ---
Teaching Attending Note Name of Resident: Jazmín Gibbons ATTENDING PHYSICIAN STATEMENT I saw and evaluated the patient. I reviewed the resident's note and discussed the case with the resident. I agree with the resident's findings and plan as documented. SUBJECTIVE: Still has some LLQ abdominal pain. No further diarrhea. No nausea/ vomiting. No fever/chills. Received enema today in preparation for flexible sigmoidoscopy. OBJECTIVE: Afebrile, Hemodynamicaly Stable. Last Vital Signs Temp Pulse Resp BP Pulse Ox 98.4 F 93 H 20 137/77 98 02/27/19 17:12 02/27/19 17:12 02/27/19 17:12 02/27/19 17:12 02/27/19 13:00 Heart - S1, S2, RRR Lungs - clear to auscultation Abdomen - Soft, mild LLQ tenderness. Bowel Sounds normal. Extremities - no edema, no calf tenderness. - ramos in situ, clear urine. Laboratory Results - last 24 hr 02/23/19 02/26/19 02/27/19 03:00 22:03 06:13 WBC RBC Hgb Hct MCV MCH MCHC RDW Plt Count MPV Sodium Potassium Chloride Carbon Dioxide Anion Gap BUN Creatinine Est GFR (CKD-EPI)AfAm Est GFR (CKD-EPI)NonAf POC Glucometer 176 147 Random Glucose Calcium Phosphorus Magnesium Total Bilirubin AST ALT Alkaline Phosphatase Total Protein Albumin Stool Lactoferrin 26.60 H 02/27/19 02/27/19 02/27/19 07:47 07:47 17:04 WBC 4.6 RBC 4.15 Hgb 11.8 Hct 35.8 MCV 86.4 MCH 28.3 MCHC 32.8 RDW 15.1 Plt Count 277 MPV 8.8 Sodium 135 L Potassium 5.0 Chloride 101 Carbon Dioxide 28 Anion Gap 6 L BUN 15.8 Creatinine 1.9 H Est GFR (CKD-EPI)AfAm 44.37 Est GFR (CKD-EPI)NonAf 38.28 POC Glucometer 200 Random Glucose 162 H Calcium 9.9 Phosphorus 3.0 Magnesium 1.6 L Total Bilirubin 0.4 AST 23 ALT 31 Alkaline Phosphatase 105 Total Protein 6.7 Albumin 3.1 L Stool Lactoferrin Current Medications Generic Name Dose Route Start Last Admin Trade Name Freq PRN Reason Stop Dose Admin Amlodipine Besylate 5 mg 02/24/19 13:45 02/27/19 10:02 Norvasc - PO 5 mg DAILY [facility] Administration [place] Butter/Phenylephrine 1 each 02/23/19 10:00 02/27/19 11:51 Preparation H Suppository RC Not Given BID [facility] Heparin Sodium (Porcine) 5,000 unit 02/23/19 14:00 02/26/19 13:07 Heparin - SQ 5,000 unit TID [facility] Administration Insulin Aspart 1 vial 02/24/19 16:30 02/27/19 17:06 Novolog Vial Sliding Scale - SQ Not Given ACHS [facility] Protocol Lisinopril 5 mg 02/24/19 13:45 02/27/19 10:02 Prinivil PO 5 mg DAILY ANTHONY Administration Pantoprazole Sodium 40 mg 02/23/19 01:56 02/27/19 10:03 Protonix Iv IVPUSH 40 mg DAILY [facility] Administration Rosuvastatin Calcium 10 mg 02/24/19 22:00 02/26/19 22:05 Crestor - PO 10 mg HS [facility] Administration Tamsulosin HCl 0.4 mg 02/24/19 20:00 02/27/19 10:02 Flomax - PO 0.4 mg DAILY@0830 [facility] Administration Home Medications Medication Instructions Recorded Amlodipine Besylate [Norvasc -] 5 mg PO DAILY 11/29/16 Aspirin [Giovana Chewable] 81 mg PO DAILY 11/29/16 Glipizide [Glipizide ER] 5 mg PO BID 11/29/16 Multivit-Min/Iron Fum/Folic AC 1 each PO DAILY 11/29/16 [Icioh-Znzrecn-Xwvqprwp Tablet] RX: Loratadine 10 mg PO DAILY 11/29/16 RX: Omeprazole 40 mg PO DAILY 11/29/16 RX: Ranitidine HCl 150 mg PO DAILY 11/29/16 RX: Sodium Bicarbonate - 1,300 mg PO DAILY 11/29/16 Dulaglutide [Trulicity] 0.75 mg SQ WEEKLY 02/23/19 Pravastatin Sodium [Pravachol (Nf)] 40 mg PO HS 02/23/19 Cholecalciferol (Vitamin D3) 5,000 unit PO DAILY 02/24/19 [Vitamin D3] RX: Gabapentin 400 mg PO TID 02/24/19 RX: Lisinopril 5 mg PO DAILY 02/24/19 Tiotropium [place] [Spiriva 2 puff DAILY 02/24/19 Respimat] ASSESSMENT AND PLAN: 58 year old male with history of COPD, HTN, DM 2, s/p L Nephrectomy, s/p recent bilateral hip surgery, presents with abdominal pain with associated bloody diarrhea. 1. Acute Colitis, etiology unclear. Diarrhea resolved. Ongoing LLQ tenderness. Afebrile, no leukocytosis. Received flagyl/cefoxitin/bactrim in the ER, subsequently Zosyn, now all Abx discontinued by ID. For flex sigmoidoscopy today. (Last colonoscopy 2016, positive for tubular adenomas) Cdiff negative, stool leukocytes negative, Stool Cx negative, Stool Ova and Parasites negative. further recommendations as per GI 2. Urinary retention sec to likely BPH requiring ramos insertion - seen by urology - for discharge with Ramos and Tamsulosin, with urology outpatient follow up for Cystoscopy/TRUS. Urine Cx negative. 3. TIM on CKD 3 - renal function improved. No hydronephrosis or obstruction on imaging. s/p Nephrectomy > 10 years ago, reason unclear. Baseline Creatinine 1.6 - 1.9. 4. DM 2 - no further episodes of hypoglycemia. Continue Sliding Scale Novolog. 5. HTN - Continue Norvasc, Lisinopril. 6. COPD - Stable. Continue Spiriva. 7. HLD - Continue Statin. 8. Hypomagnesemia - repleted. DVT Px - Heparin held prior to sigmoidoscopy GI Px - PPI
[2019-02-27] MEDS ORDERED: PT OWN MED DRAWER 7, Y5N ONE (20:39)
[2019-02-27] MEDS: ROSUVASTATIN CA 10 MG TABLET (FP) PO SCH (21:53)
[2019-02-28] MEDS: INSULIN SLIDING SCALE (NOVOLOG) 1 VIAL SQ SCH ×4 (07:05→21:41)
--- NOTE | 2019-02-28 07:41 | PN.GI ---
GI Progress Note Subjective: NO NEW COMPLAINTS - NO BM TODAY ; TOLERATING DIET - Objective Vital Signs: Vital Signs Temperature 98.2 F 02/28/19 06:00 Pulse Rate 80 02/28/19 06:00 Respiratory Rate 18 02/28/19 06:00 Blood Pressure 122/55 L 02/28/19 06:00 O2 Sat by Pulse Oximetry (%) 99 02/27/19 22:00 Constitutional: Well Nourished, No Distress, Calm Eyes: Yes: WNL HENT: Yes: WNL Neck: Yes: Tenderness Cardiovascular: Yes: WNL, Regular Rate and Rhythm Respiratory: Yes: WNL, Regular, CTA Bilaterally Gastrointestinal Inspection: Yes: WNL ...Auscultate: Yes: Normoactive Bowel Sounds Extremities: Yes: WNL Edema: No Labs: CBC, BMP 02/27/19 07:47 02/27/19 07:47 Problem List - Problems (1) Colitis Assessment/Plan: S/P FLEX SIG - PATCHY ERYTHEMA STOOL CULTURES AND COLON FLUID CULTURE SO FAR NEGATIVE F/U PATHOLOGY LOW RESIDUE LACTOSE FREE DIET Code(s): K52.9 - NONINFECTIVE GASTROENTERITIS AND COLITIS, UNSPECIFIED (2) Diarrhea Code(s): R19.7 - DIARRHEA, UNSPECIFIED
[2019-02-28] MEDS: LISINOPRIL 5 MG TABLET (FP) PO SCH (09:35)
[2019-02-28] MEDS: TAMSULOSIN HCL 0.4 MG CAP PO SCH (09:36)
[2019-02-28] MEDS: amLODIPine BESYLATE 5 MG TABLET (FP) PO SCH (09:36)
[2019-02-28] MEDS: PANTOPRAZOLE SODIUM 40 MG VIAL IVPUSH SCH (09:36)
[2019-02-28] MEDS: PHENYLEPHRINE HCL/COCOA BUTTER SUPPOSITORY RC SCH ×2 (09:36→21:42)
[2019-02-28] MEDS ORDERED: INSULIN (NOVOLOG) ASPART 100 UNITS/ML 10ML VIAL ONE (11:03)
--- NOTE | 2019-02-28 14:38 | PN ---
Teaching Attending Note Name of Resident: Annika Bustos ATTENDING PHYSICIAN STATEMENT I saw and evaluated the patient. I reviewed the resident's note and discussed the case with the resident. I agree with the resident's findings and plan as documented. SUBJECTIVE: LLQ abdominal pain much improved. No further diarrhea. No nausea/ vomiting. No fever/chills. OBJECTIVE: Afebrile, Hemodynamicaly Stable. Last Vital Signs Temp Pulse Resp BP Pulse Ox 97.9 F 92 H 18 129/69 98 02/28/19 14:05 02/28/19 14:05 02/28/19 14:05 02/28/19 14:05 02/28/19 10:00 Heart - S1, S2, RRR Lungs - clear to auscultation Abdomen - Soft, mild LLQ tenderness. Bowel Sounds normal. Extremities - no edema, no calf tenderness. - ramos in situ, clear urine. Laboratory Results - last 24 hr 02/27/19 02/27/19 02/28/19 17:04 21:50 07:03 POC Glucometer 200 185 240 02/28/19 11:25 POC Glucometer 131 Current Medications Generic Name Dose Route Start Last Admin Trade Name [place]q PRN Reason Stop Dose Admin Amlodipine Besylate 5 mg 02/24/19 13:45 02/28/19 09:36 Norvasc - PO 5 mg DAILY ANTHONY Administration [place] Butter/Phenylephrine 1 each 02/23/19 10:00 02/28/19 09:36 Preparation H Suppository RC 1 each BID ANTHONY Administration Heparin Sodium (Porcine) 5,000 unit 02/23/19 14:00 02/26/19 13:07 Heparin - SQ 5,000 unit TID ANTHONY Administration Insulin Aspart 1 vial 02/24/19 16:30 02/28/19 12:46 Novolog Vial Sliding Scale - SQ Not Given ACHS [facility] Protocol Lisinopril 5 mg 02/24/19 13:45 02/28/19 09:35 Prinivil PO 5 mg DAILY ANTHONY Administration Pantoprazole Sodium 40 mg 02/23/19 01:56 02/28/19 09:36 Protonix Iv IVPUSH 40 mg DAILY ANTHONY Administration Rosuvastatin Calcium 10 mg 02/24/19 22:00 02/27/19 21:53 Crestor - PO 10 mg HS ANTHONY Administration Tamsulosin HCl 0.4 mg 02/24/19 20:00 02/28/19 09:36 Flomax - PO 0.4 mg DAILY@0830 ANTHONY Administration Home Medications Medication Instructions Recorded Amlodipine Besylate [Norvasc -] 5 mg PO DAILY 11/29/16 Aspirin [Giovana Chewable] 81 mg PO DAILY 11/29/16 Glipizide [Glipizide ER] 5 mg PO BID 11/29/16 Multivit-Min/Iron Fum/Folic AC 1 each PO DAILY 11/29/16 [Qzkvd-Acxeqhp-Impfcaqs Tablet] RX: Loratadine 10 mg PO DAILY 11/29/16 RX: Omeprazole 40 mg PO DAILY 11/29/16 RX: Ranitidine HCl 150 mg PO DAILY 11/29/16 RX: Sodium Bicarbonate - 1,300 mg PO DAILY 11/29/16 Dulaglutide [Trulicity] 0.75 mg SQ WEEKLY 02/23/19 Pravastatin Sodium [Pravachol (Nf)] 40 mg PO HS 02/23/19 Cholecalciferol (Vitamin D3) 5,000 unit PO DAILY 02/24/19 [Vitamin D3] RX: Gabapentin 400 mg PO TID 02/24/19 RX: Lisinopril 5 mg PO DAILY 02/24/19 Tiotropium [place] [Spiriva 2 puff DAILY 02/24/19 Respimat] ASSESSMENT AND PLAN: 58 year old male with history of COPD, HTN, DM 2, s/p L Nephrectomy, s/p recent bilateral hip surgery, presents with abdominal pain with associated bloody diarrhea. 1. Acute Colitis, etiology unclear. Diarrhea resolved. Afebrile, no leukocytosis. Received flagyl/cefoxitin/bactrim in the ER, subsequently Zosyn, now all Abx discontinued by ID. s/p flex sigmoidoscopy - erythematous areas, diverticula. (Last colonoscopy 2016, positive for tubular adenomas) Cdiff negative, stool leukocytes negative, Stool Cx negative, Stool Ova and Parasites pending Further recommendations as per GI Tolerating oral intake. Medically optimized for discharge. 2. Urinary retention sec to likely BPH requiring ramos insertion - seen by urology - for discharge with Ramos and Tamsulosin, with urology outpatient follow up for Cystoscopy/TRUS. Urine Cx negative. 3. TIM on CKD 3 - renal function improved. No hydronephrosis or obstruction on imaging. s/p Nephrectomy > 10 years ago, reason unclear. Baseline Creatinine 1.6 - 1.9. 4. DM 2 - no further episodes of hypoglycemia. Continue Sliding Scale Novolog. To resume Glipizide and Trulicity on discharge 5. HTN - Continue Norvasc, Lisinopril. 6. COPD - Stable. Continue Spiriva. 7. HLD - Continue Statin. DVT Px - Heparin SQ GI Px - PPI Medically optimized for discharge.
--- NOTE | 2019-02-28 15:18 | PN ---
Progress Note, Physician History of Present Illness: Pt seen and examined, chart reviewed. He is s/p flex sigmoidoscopy, c/o LLQ/low abd pain. No diarrhea, has had no BM today. Remains afebrile. No new complaints. - Current Medication List Current Medications: Active Medications Amlodipine Besylate (Norvasc -) 5 mg PO DAILY [facility] Last Admin: 02/28/19 09:36 Dose: 5 mg [place] Butter/Phenylephrine (Preparation H Suppository) 1 each RC BID [facility] Last Admin: 02/28/19 09:36 Dose: 1 each Heparin Sodium (Porcine) (Heparin -) 5,000 unit SQ TID [facility] Last Admin: 02/26/19 13:07 Dose: 5,000 unit Insulin Aspart (Novolog Vial Sliding Scale -) 1 vial SQ ACHS [facility]; Protocol Last Admin: 02/28/19 12:46 Dose: Not Given Lisinopril (Prinivil) 5 mg PO DAILY [facility] Last Admin: 02/28/19 09:35 Dose: 5 mg Pantoprazole Sodium (Protonix Iv) 40 mg IVPUSH DAILY [facility] Last Admin: 02/28/19 09:36 Dose: 40 mg Rosuvastatin Calcium (Crestor -) 10 mg PO HS [facility] Last Admin: 02/27/19 21:53 Dose: 10 mg Tamsulosin HCl (Flomax -) 0.4 mg PO DAILY@0830 [facility] Last Admin: 02/28/19 09:36 Dose: 0.4 mg - Objective Vital Signs: Vital Signs Temperature 97.9 F 02/28/19 14:05 Pulse Rate 92 H 02/28/19 14:05 Respiratory Rate 18 02/28/19 14:05 Blood Pressure 129/69 02/28/19 14:05 O2 Sat by Pulse Oximetry (%) 98 02/28/19 10:00 Constitutional: Yes: No Distress, Calm Cardiovascular: Yes: Regular Rate and Rhythm Respiratory: Yes: Regular Gastrointestinal: Yes: Normal Bowel Sounds, Soft, Tenderness (lower abd/LLQ, no guarding/rigidity) Genitourinary: Yes: Ramos Present Extremities: Yes: WNL Integumentary: Yes: WNL Neurological: Yes: Alert Labs: CBC, BMP 02/27/19 07:47 02/27/19 07:47 Microbiology 02/26/19 12:30 Stool Salmonella/Shigella Culture - Final NO GROWTH OF SALMONELLA OR SHIGELLA SPECIES OBTAINED 02/26/19 12:30 Stool Campylobacter Culture - Final NO GROWTH OF CAMPYLOBACTER SPECIES OBTAINED 02/26/19 12:30 Stool Yersinia Culture - Final NO GROWTH OF YERSINIA SPECIES OBTAINED 02/26/19 12:30 Stool Vibrio Culture - Final NO GROWTH OF VIBRIO SPECIES OBTAINED 02/26/19 12:30 Stool Escherichia coli 0157 Culture - Final NO GROWTH OF E COLI 0157 OBTAINED 02/23/19 01:45 Blood - Peripheral Venous Blood Culture - Final NO GROWTH AFTER 5 DAYS INCUBATION 02/23/19 01:45 Blood - Peripheral Venous Blood Culture - Final NO GROWTH AFTER 5 DAYS INCUBATION 02/23/19 03:00 Colon Fluid Gram Stain - Final 02/23/19 00:35 Urine - Urine Clean Catch Urine Culture - Final NO GROWTH OBTAINED 02/23/19 03:00 Stool Clostridioides difficile Antigen - Final 02/23/19 03:00 Stool Clostridioides difficile Toxin Assay - Final - ....Imaging Cat Scan: Report Reviewed Problem List - Problems (1) Colitis Code(s): K52.9 - NONINFECTIVE GASTROENTERITIS AND COLITIS, UNSPECIFIED (2) Diabetes mellitus with stage 2 chronic kidney disease, with long-term current use of insulin Code(s): E11.22 - TYPE 2 DIABETES MELLITUS W DIABETIC CHRONIC KIDNEY DISEASE; N18.2 - CHRONIC KIDNEY DISEASE, STAGE 2 (MILD); Z79.4 - FDC (CURRENT) USE OF INSULIN Qualifiers: Diabetes mellitus type: type 2 Qualified Code(s): E11.22 - Type 2 diabetes mellitus with diabetic chronic kidney disease; N18.2 - Chronic kidney disease, stage 2 (mild); Z79.4 - USP (current) use of insulin (3) Diarrhea Code(s): R19.7 - DIARRHEA, UNSPECIFIED (4) Hyperlipidemia Code(s): E78.5 - HYPERLIPIDEMIA, UNSPECIFIED Qualifiers: Hyperlipidemia type: unspecified Qualified Code(s): E78.5 - Hyperlipidemia , unspecified (5) Hypertension Code(s): I10 - ESSENTIAL (PRIMARY) HYPERTENSION Qualifiers: Hypertension type: essential hypertension Qualified Code(s): I10 - Essential (primary) hypertension (6) Noninfectious colitis Code(s): K52.9 - NONINFECTIVE GASTROENTERITIS AND COLITIS, UNSPECIFIED (7) Urinary retention due to benign prostatic hyperplasia Code(s): N40.1 - BENIGN PROSTATIC HYPERPLASIA WITH LOWER URINARY TRACT SYMP; R33.8 - OTHER RETENTION OF URINE Assessment/Plan Colitis LLQ abd pain Diarrhea/resolved Urinary retention/ ramos in place -- flex sigmoidoscopy findings noted -- stool culture/c.diff testing results neg, o+p pending -- antibiotics d/c'd - continue monitor -- GI/ f/u Pt afebrile, diarrhea resolved
--- NOTE | 2019-02-28 18:38 | DS ---
Physical Exam: SUBJECTIVE: Patient seen and examined at bedside this morning. No acute events overnight. Tolerated diet. OBJECTIVE: Vital Signs Temperature 99.7 F H 02/28/19 21:40 Pulse Rate 87 02/28/19 21:40 Respiratory Rate 16 02/28/19 21:40 Blood Pressure 151/73 02/28/19 21:40 O2 Sat by Pulse Oximetry (%) 98 02/28/19 22:00 PHYSICAL EXAM GENERAL: The patient is awake, alert, and fully oriented, in no acute distress. EYES: PERRLA, EOMI, sclera anicteric, conjunctiva clear. NECK: full range of motion, supple. LUNGS: Breath sounds equal, clear to auscultation bilaterally. HEART: Regular rate and rhythm, S1, S2 without murmur, rub or gallop. ABDOMEN: Soft, nontender, nondistended, normoactive bowel sounds. EXTREMITIES: 2+ pulses, warm, well-perfused, no edema. NEUROLOGICAL: Cranial nerves II through XII grossly intact. Normal speech, normal gait SKIN: Warm, dry, normal turgor, no rashes or lesions noted. LABS Laboratory Results - last 24 hr 02/27/19 02/28/19 02/28/19 21:50 07:03 11:25 POC Glucometer 185 240 131 02/28/19 16:42 POC Glucometer 162 HOSPITAL COURSE: Date of Admission:02/23/19 Date of Discharge: 02/28/19 Patient is a 58 year old male with past medical history of COPD, HTN, DM, s/p left nephrectomy, s/p recent bilateral hip surgery, presented with abdominal pain with associated bloody diarrhea. CT of abdomen was done which showed acute colitis. Patient was initially given Flagyl, cefoxitin and bactrim at the ED. ID was consulted and patient was started on Zosyn which was given for 2 days. Stool culture, ova and parasites were done. GI was consulted and patient underwent flex sigmoidoscopy which showed scattered diverticula, mild patchy erythema. Patient was also noted to have urinary retention secondary to BPH. Urology was consulted and Camacho cath was inserted, Tamsulosin started. Patient was instructed to follow up as outpatient for Cystoscopy/TURP. Patient continue to improve throughout hospital stay and was instructed to follow up with PCP, urology and GI. Minutes to complete discharge: 35 Discharge Summary Reason For Visit: ACUTE HEMORRHOID/COLITIS Current Active Problems Acute pancreatitis without infection or necrosis (Acute) Colitis (Acute) Diabetes mellitus with stage 2 chronic kidney disease, with long-term current use of insulin (Acute) Diarrhea (Acute) Epigastric abdominal tenderness without rebound tenderness (Acute) History of left nephrectomy (Acute) Hyperlipidemia (Acute) Hypertension (Acute) Noninfectious colitis (Acute) S/p nephrectomy (Acute) Suprapubic pain (Acute) Urinary retention due to benign prostatic hyperplasia (Acute) Condition: Improved - Instructions Diet, Activity, Other Instructions: You came into the hospital for abdominal pain and blood in your stool. You were found to have an infection on your bowels and you were treated with antibiotics. You were also evaluated by the urologist for the enlarged prostate. A catheter was inserted to prevent your urine from retaining. Please follow up with Dr. Zaman for further work up and management. Please continue taking your home medications as prescribed. Please follow up with your primary care physician in one week to monitor your improvement. Please follow up with the urologist (Dr. Zaman) to further manage your enlarged prostate. Please follow up with the sharepoint administrator (Dr. Schwarz) within 1-2 weeks. Please continue to follow a low fat, low sodium diet. Please return to the ER if you have any signs or symptoms of chest pain, shortness of breath, uncontrollable fever, chills, nausea, vomiting, numbness, tingling, or weakness in any part of your body, changes in vision, or slurred speech. Please return to the ER if symptoms persist, worsen, or new symptoms arise. Referrals: [facility] [Provider Group] Clayton Schwarz DO [Staff Physician] - Willem Zaman MD [Staff Physician] - Eugenia Farr MD [Staff Physician] - Disposition: HOME - Home Medications Comprehensive Discharge Medication List: Ambulatory Orders Amlodipine Besylate [Norvasc -] 5 mg PO DAILY 11/29/16 Aspirin [Giovana Chewable Aspirin] 81 mg PO DAILY 11/29/16 Glipizide [Glipizide ER] 5 mg PO BID 11/29/16 Multivit-Min/Iron Fum/Folic AC [Vsafw-Ntktyrp-Lyibvnhl Tablet] 1 each PO DAILY 11/29/16 Ranitidine HCl 150 mg PO DAILY 11/29/16 Sodium Bicarbonate - 1,300 mg PO DAILY 11/29/16 Dulaglutide [Trulicity] 0.75 mg SQ WEEKLY 02/23/19 Pravastatin Sodium [Pravachol -] 40 mg PO HS 02/23/19 Cholecalciferol (Vitamin D3) [Vitamin D3] 5,000 unit PO DAILY 02/24/19 Gabapentin 400 mg PO TID 02/24/19 Lisinopril 5 mg PO DAILY 02/24/19 Tiotropium [place] [Spiriva Respimat] 2 puff DAILY 02/24/19 Tamsulosin HCl [Flomax -] 0.4 mg PO DAILY@0830 #30 cap.er.24h 02/28/19 This patient is new to me today: No Emergency Visit: Yes ED Registration Date: 02/23/19 Care time: The patient presented to the Emergency Department on the above date and was hospitalized for further evaluation of their emergent condition. Critical Care patient: No - Discharge Referral Referred to [facility] Yes Physician Referral: Logan Schwarz DO (GI) ATTENDING PHYSICIAN STATEMENT I saw and evaluated the patient. I reviewed the resident's note and discussed the case with the resident. I agree with the resident's findings and plan as documented. SUBJECTIVE: OBJECTIVE: ASSESSMENT AND PLAN:
[2019-02-28] MEDS ORDERED: PT OWN MED DRAWER 7, Y5N ONE (20:05)
[2019-02-28] MEDS: ROSUVASTATIN CA 10 MG TABLET (FP) PO SCH (21:41)
[2019-03-01] MEDS: INSULIN SLIDING SCALE (NOVOLOG) 1 VIAL SQ SCH ×4 (06:45→22:22)
--- NOTE | 2019-03-01 08:16 | PN.GI ---
GI Progress Note Subjective: STILL WITH ABD DISCOMFORT COMPLAINS OF FEELING CONSTIPATED - Objective Vital Signs: Vital Signs Temperature 98.7 F 03/01/19 06:13 Pulse Rate 83 03/01/19 06:13 Respiratory Rate 18 03/01/19 06:13 Blood Pressure 119/65 03/01/19 06:13 O2 Sat by Pulse Oximetry (%) 98 02/28/19 22:00 Constitutional: Well Nourished, No Distress, Calm Eyes: Yes: WNL HENT: Yes: WNL Neck: Yes: WNL Cardiovascular: Yes: WNL, Regular Rate and Rhythm Respiratory: Yes: WNL, Regular, CTA Bilaterally Gastrointestinal Inspection: Yes: WNL ...Auscultate: Yes: Normoactive Bowel Sounds ...Palpate: Yes: Other (TENDER EPIGASTRIUM NO REBOUND OR GUARDING , NML BOWEL SOUNDS) Extremities: Yes: WNL Edema: No Labs: CBC, BMP 02/27/19 07:47 02/27/19 07:47 Problem List - Problems (1) Colitis Assessment/Plan: S/P FLEX SIG - PATCHY ERYTHEMA STOOL CULTURES AND COLON FLUID CULTURE NEGATIVE F/U PATHOLOGY LOW RESIDUE LACTOSE FREE DIET ABD SONOGRAM ORDERED TO FURTHER EVALUATE HIS EPIGASTRIC ABDOMINAL DISCOMFORT ; COLACE 100 MG PO BID ADDED TO THE REGIMEN FOR GENTLE SYMPTOM RELIEF Code(s): K52.9 - NONINFECTIVE GASTROENTERITIS AND COLITIS, UNSPECIFIED (2) Diarrhea Code(s): R19.7 - DIARRHEA, UNSPECIFIED
[2019-03-01] MEDS: amLODIPine BESYLATE 5 MG TABLET (FP) PO SCH (09:35)
[2019-03-01] MEDS: TAMSULOSIN HCL 0.4 MG CAP PO SCH (09:35)
[2019-03-01] MEDS: PANTOPRAZOLE SODIUM 40 MG VIAL IVPUSH SCH (09:35)
[2019-03-01] MEDS: PHENYLEPHRINE HCL/COCOA BUTTER SUPPOSITORY RC SCH ×2 (09:35→22:26)
[2019-03-01] MEDS: LISINOPRIL 5 MG TABLET (FP) PO SCH (09:35)
[2019-03-01] MEDS ORDERED: DOCUSATE SODIUM 100 MG CAPSULE (FP) PO PRN (14:45)
--- NOTE | 2019-03-01 16:39 | DS ---
Physical Exam: SUBJECTIVE: LLQ abdominal pain much improved. No further diarrhea (no bowel movement in 2 days). No nausea/vomiting. No fever/chills. OBJECTIVE: Afebrile, Hemodynamicaly Stable. Last Vital Signs Temp Pulse Resp BP Pulse Ox 98.4 F 99 H 18 110/58 L 99 03/01/19 15:14 03/01/19 15:14 03/01/19 15:14 03/01/19 15:14 03/01/19 10:00 Heart - S1, S2, RRR Lungs - clear to auscultation Abdomen - Soft, mild LLQ tenderness. Bowel Sounds normal. Extremities - no edema, no calf tenderness. - ramos in situ, clear urine. Laboratory Tests 02/22/19 02/22/19 02/22/19 23:20 23:20 23:20 WBC 7.9 RBC 4.21 Hgb 12.1 Hct 37.6 MCV 89.2 MCH 28.7 MCHC 32.1 RDW 15.5 Plt Count 247 MPV 8.9 Absolute Neuts (auto) 6.1 Neutrophils % 76.1 Lymphocytes % 15.1 Monocytes % 7.9 Eosinophils % 0.6 Basophils % 0.3 Nucleated RBC % 0 ESR VBG pH POC VBG pCO2 POC VBG pO2 VBG HCO3 VBG O2 Sat (Verito) VBG Base Excess Sodium 139 Potassium 5.0 Chloride 112 H Carbon Dioxide 18 L Anion Gap 10 BUN 44.1 H Creatinine 1.9 H Est GFR (CKD-EPI)AfAm 44.37 Est GFR (CKD-EPI)NonAf 38.28 POC Glucometer Random Glucose 373 H* Lactic Acid Calcium 9.5 Phosphorus Magnesium Total Bilirubin 0.1 L AST 13 L ALT 18 Alkaline Phosphatase 109 Ammonia 15.50 C-Reactive Protein Total Protein 7.1 Albumin 3.3 L Lipase Urine Color Urine Appearance Urine pH Ur Specific [place] Urine Protein Urine Glucose (UA) Urine Ketones Urine Blood Urine Nitrite Urine Bilirubin Urine Urobilinogen Ur Leukocyte Esterase Urine WBC (Auto) Urine RBC (Auto) Urine Casts (Auto) U Epithel Cells (Auto) Urine Bacteria (Auto) Ur Random Creatinine U Random Total Protein Ur Random Sodium Urine Collection Time Urine Total Volume Ur Total Protein 24 Hr Stool Occult Blood Stool Lactoferrin Blood Type Antibody Screen 02/22/19 02/22/19 02/23/19 23:20 23:20 00:35 WBC RBC Hgb Hct MCV MCH MCHC RDW Plt Count MPV Absolute Neuts (auto) Neutrophils % Lymphocytes % Monocytes % Eosinophils % Basophils % Nucleated RBC % ESR VBG pH POC VBG pCO2 POC VBG pO2 VBG HCO3 VBG O2 Sat (Verito) VBG Base Excess Sodium Potassium Chloride Carbon Dioxide Anion Gap BUN Creatinine Est GFR (CKD-EPI)AfAm Est GFR (CKD-EPI)NonAf POC Glucometer Random Glucose Lactic Acid Calcium Phosphorus Magnesium Total Bilirubin AST ALT Alkaline Phosphatase Ammonia C-Reactive Protein Total Protein Albumin Lipase 577 H Urine Color Yellow Urine Appearance Clear Urine pH 5.5 Ur Specific [place] 1.017 Urine Protein 3+ H Urine Glucose (UA) Trace Urine Ketones Negative Urine Blood Negative Urine Nitrite Negative Urine Bilirubin Negative Urine Urobilinogen 0.2 Ur Leukocyte Esterase Negative Urine WBC (Auto) 0 Urine RBC (Auto) 0 Urine Casts (Auto) 2 U Epithel Cells (Auto) 0.5 Urine Bacteria (Auto) 0.7 Ur Random Creatinine U Random Total Protein Ur Random Sodium Urine Collection Time Urine Total Volume Ur Total Protein 24 Hr Stool Occult Blood Negative Stool Lactoferrin Blood Type Antibody Screen 02/23/19 02/23/19 02/23/19 01:45 01:45 02:41 WBC RBC Hgb Hct MCV MCH MCHC RDW Plt Count MPV Absolute Neuts (auto) Neutrophils % Lymphocytes % Monocytes % Eosinophils % Basophils % Nucleated RBC % ESR VBG pH 7.33 POC VBG pCO2 32.5 L POC VBG pO2 152 H VBG HCO3 16.8 L VBG O2 Sat (Verito) 99.1 H VBG Base Excess -7.8 L Sodium Potassium Chloride Carbon Dioxide Anion Gap BUN Creatinine Est GFR (CKD-EPI)AfAm Est GFR (CKD-EPI)NonAf POC Glucometer Random Glucose Lactic Acid 1.1 Calcium Phosphorus Magnesium Total Bilirubin AST ALT Alkaline Phosphatase Ammonia C-Reactive Protein Total Protein Albumin Lipase Urine Color Urine Appearance Urine pH Ur Specific [place] Urine Protein Urine Glucose (UA) Urine Ketones Urine Blood Urine Nitrite Urine Bilirubin Urine Urobilinogen Ur Leukocyte Esterase Urine WBC (Auto) Urine RBC (Auto) Urine Casts (Auto) U Epithel Cells (Auto) Urine Bacteria (Auto) Ur Random Creatinine U Random Total Protein Ur Random Sodium 72 Urine Collection Time Urine Total Volume Ur Total Protein 24 Hr Stool Occult Blood Stool Lactoferrin Blood Type Antibody Screen 0802/23/19 02/23/19 03:00 03:00 03:00 WBC RBC Hgb Hct MCV MCH MCHC RDW Plt Count MPV Absolute Neuts (auto) Neutrophils % Lymphocytes % Monocytes % Eosinophils % Basophils % Nucleated RBC % ESR VBG pH POC VBG pCO2 POC VBG pO2 VBG HCO3 VBG O2 Sat (Verito) VBG Base Excess Sodium Potassium Chloride Carbon Dioxide Anion Gap BUN Creatinine Est GFR (CKD-EPI)AfAm Est GFR (CKD-EPI)NonAf POC Glucometer Random Glucose Lactic Acid Calcium Phosphorus Magnesium Total Bilirubin AST ALT Alkaline Phosphatase Ammonia C-Reactive Protein Total Protein Albumin Lipase Urine Color Yellow Urine Appearance Clear Urine pH 5.5 Ur Specific [place] 1.017 Urine Protein 3+ H Urine Glucose (UA) Trace Urine Ketones Negative Urine Blood Negative Urine Nitrite Negative Urine Bilirubin Negative Urine Urobilinogen 0.2 Ur Leukocyte Esterase Negative Urine WBC (Auto) 0 Urine RBC (Auto) 1 Urine Casts (Auto) 1 U Epithel Cells (Auto) 0.3 Urine Bacteria (Auto) 0 Ur Random Creatinine 33.0 U Random Total Protein 74.8 H Ur Random Sodium Urine Collection Time Urine Total Volume Ur Total Protein 24 Hr Stool Occult Blood Stool Lactoferrin 26.60 H Blood Type Antibody Screen 02/23/19 02/23/19 02/23/19 03:57 03:57 03:57 WBC RBC Hgb Hct MCV MCH MCHC RDW Plt Count MPV Absolute Neuts (auto) Neutrophils % Lymphocytes % Monocytes % Eosinophils % Basophils % Nucleated RBC % ESR 49 H VBG pH POC VBG pCO2 POC VBG pO2 VBG HCO3 VBG O2 Sat (Verito) VBG Base Excess Sodium 138 Potassium 4.2 Chloride 112 H Carbon Dioxide 18 L Anion Gap 8 BUN 36.5 H Creatinine 2.2 H Est GFR (CKD-EPI)AfAm 37.16 Est GFR (CKD-EPI)NonAf 32.06 POC Glucometer Random Glucose 106 Lactic Acid Calcium 9.1 Phosphorus Magnesium Total Bilirubin 0.2 AST 10 L ALT 17 Alkaline Phosphatase 95 Ammonia C-Reactive Protein 1.2 H Total Protein 6.4 Albumin 3.0 L Lipase 572 H Urine Color Urine Appearance Urine pH Ur Specific [place] Urine Protein Urine Glucose (UA) Urine Ketones Urine Blood Urine Nitrite Urine Bilirubin Urine Urobilinogen Ur Leukocyte Esterase Urine WBC (Auto) Urine RBC (Auto) Urine Casts (Auto) U Epithel Cells (Auto) Urine Bacteria (Auto) Ur Random Creatinine U Random Total Protein Ur Random Sodium Urine Collection Time Urine Total Volume Ur Total Protein 24 Hr Stool Occult Blood Stool Lactoferrin Blood Type A POSITIVE Antibody Screen Negative 02/23/19 02/23/19 02/23/19 04:00 06:16 06:37 WBC 8.4 RBC 4.05 Hgb 11.5 L Hct 35.2 L MCV 87.0 MCH 28.3 MCHC 32.5 RDW 15.2 Plt Count 230 MPV 9.9 D Absolute Neuts (auto) 4.8 Neutrophils % 56.9 D Lymphocytes % 31.3 D Monocytes % 8.6 Eosinophils % 2.0 D Basophils % 1.2 D Nucleated RBC % 0 ESR VBG pH POC VBG pCO2 POC VBG pO2 VBG HCO3 VBG O2 Sat (Verito) VBG Base Excess Sodium Potassium Chloride Carbon Dioxide Anion Gap BUN Creatinine Est GFR (CKD-EPI)AfAm Est GFR (CKD-EPI)NonAf POC Glucometer 62 64 Random Glucose Lactic Acid Calcium Phosphorus Magnesium Total Bilirubin AST ALT Alkaline Phosphatase Ammonia C-Reactive Protein Total Protein Albumin Lipase Urine Color Urine Appearance Urine pH Ur Specific [place] Urine Protein Urine Glucose (UA) Urine Ketones Urine Blood Urine Nitrite Urine Bilirubin Urine Urobilinogen Ur Leukocyte Esterase Urine WBC (Auto) Urine RBC (Auto) Urine Casts (Auto) U Epithel Cells (Auto) Urine Bacteria (Auto) Ur Random Creatinine U Random Total Protein Ur Random Sodium Urine Collection Time Urine Total Volume Ur Total Protein 24 Hr Stool Occult Blood Stool Lactoferrin Blood Type Antibody Screen 02/23/19 02/23/19 02/23/19 07:00 10:13 13:11 WBC RBC Hgb Hct MCV MCH MCHC RDW Plt Count MPV Absolute Neuts (auto) Neutrophils % Lymphocytes % Monocytes % Eosinophils % Basophils % Nucleated RBC % ESR VBG pH POC VBG pCO2 POC VBG pO2 VBG HCO3 VBG O2 Sat (Verito) VBG Base Excess Sodium Potassium Chloride Carbon Dioxide Anion Gap BUN Creatinine Est GFR (CKD-EPI)AfAm Est GFR (CKD-EPI)NonAf POC Glucometer 95 125 Random Glucose Lactic Acid Calcium Phosphorus Magnesium Total Bilirubin AST ALT Alkaline Phosphatase Ammonia C-Reactive Protein Total Protein Albumin Lipase Urine Color Urine Appearance Urine pH Ur Specific [place] Urine Protein Urine Glucose (UA) Urine Ketones Urine Blood Urine Nitrite Urine Bilirubin Urine Urobilinogen Ur Leukocyte Esterase Urine WBC (Auto) Urine RBC (Auto) Urine Casts (Auto) U Epithel Cells (Auto) Urine Bacteria (Auto) Ur Random Creatinine U Random Total Protein Ur Random Sodium Urine Collection Time Urine Total Volume Ur Total Protein 24 Hr Stool Occult Blood Stool Lactof[place]in Blood Type A POSITIVE Antibody Screen 02/23/19 02/24/19 02/24/19 23:14 02:15 06:24 WBC RBC Hgb Hct MCV MCH MCHC RDW Plt Count MPV Absolute Neuts (auto) Neutrophils % Lymphocytes % Monocytes % Eosinophils % Basophils % Nucleated RBC % ESR VBG pH POC VBG pCO2 POC VBG pO2 VBG HCO3 VBG O2 Sat (Verito) VBG Base Excess Sodium Potassium Chloride Carbon Dioxide Anion Gap BUN Creatinine Est GFR (CKD-EPI)AfAm Est GFR (CKD-EPI)NonAf POC Glucometer 115 112 Random Glucose Lactic Acid Calcium Phosphorus Magnesium Total Bilirubin AST ALT Alkaline Phosphatase Ammonia C-Reactive Protein Total Protein Albumin Lipase Urine Color Urine Appearance Urine pH Ur Specific [place] Urine Protein 93 H Urine Glucose (UA) Urine Ketones Urine Blood Urine Nitrite Urine Bilirubin Urine Urobilinogen Ur Leukocyte Esterase Urine WBC (Auto) Urine RBC (Auto) Urine Casts (Auto) U Epithel Cells (Auto) Urine Bacteria (Auto) Ur Random Creatinine U Random Total Protein Ur Random Sodium Urine Collection Time 24 Urine Total Volume 2000 Ur Total Protein 24 Hr 1860 H Stool Occult Blood Stool Lactof[place]in Blood Type Antibody Screen 02/24/19 02/24/19 02/24/19 07:00 07:00 16:44 WBC 5.3 RBC 3.87 L Hgb 11.0 L Hct 33.5 L MCV 86.6 MCH 28.5 MCHC 32.9 RDW 15.5 Plt Count 247 MPV 8.7 D Absolute Neuts (auto) Neutrophils % Lymphocytes % Monocytes % Eosinophils % Basophils % Nucleated RBC % ESR VBG pH POC VBG pCO2 POC VBG pO2 VBG HCO3 VBG O2 Sat (Verito) VBG Base Excess Sodium 142 Potassium 4.4 Chloride 113 H Carbon Dioxide 23 Anion Gap 6 L BUN 18.5 H Creatinine 1.6 H Est GFR (CKD-EPI)AfAm 54.61 Est GFR (CKD-EPI)NonAf 47.12 POC Glucometer 163 Random Glucose 117 H Lactic Acid Calcium 9.4 Phosphorus 2.5 Magnesium 1.7 L Total Bilirubin AST ALT Alkaline Phosphatase Ammonia C-Reactive Protein Total Protein Albumin Lipase 330 Urine Color Urine Appearance Urine pH Ur Specific [place] Urine Protein Urine Glucose (UA) Urine Ketones Urine Blood Urine Nitrite Urine Bilirubin Urine Urobilinogen Ur Leukocyte Esterase Urine WBC (Auto) Urine RBC (Auto) Urine Casts (Auto) U Epithel Cells (Auto) Urine Bacteria (Auto) Ur Random Creatinine U Random Total Protein Ur Random Sodium Urine Collection Time Urine Total Volume Ur Total Protein 24 Hr Stool Occult Blood Stool Lactoferrin Blood Type Antibody Screen 02/24/19 02/25/19 02/25/19 21:55 04:21 06:30 WBC 5.4 RBC 3.81 L Hgb 10.8 L Hct 32.9 L MCV 86.3 MCH 28.3 MCHC 32.8 RDW 14.9 Plt Count 245 MPV 8.6 Absolute Neuts (auto) Neutrophils % Lymphocytes % Monocytes % Eosinophils % Basophils % Nucleated RBC % ESR VBG pH POC VBG pCO2 POC VBG pO2 VBG HCO3 VBG O2 Sat (Verito) VBG Base Excess Sodium Potassium Chloride Carbon Dioxide Anion Gap BUN Creatinine Est GFR (CKD-EPI)AfAm Est GFR (CKD-EPI)NonAf POC Glucometer 145 181 Random Glucose Lactic Acid Calcium Phosphorus Magnesium Total Bilirubin AST ALT Alkaline Phosphatase Ammonia C-Reactive Protein Total Protein Albumin Lipase Urine Color Urine Appearance Urine pH Ur Specific [place] Urine Protein Urine Glucose (UA) Urine Ketones Urine Blood Urine Nitrite Urine Bilirubin Urine Urobilinogen Ur Leukocyte Esterase Urine WBC (Auto) Urine RBC (Auto) Urine Casts (Auto) U Epithel Cells (Auto) Urine Bacteria (Auto) Ur Random Creatinine U Random Total Protein Ur Random Sodium Urine Collection Time Urine Total Volume Ur Total Protein 24 Hr Stool Occult Blood Stool Lactoferrin Blood Type Antibody Screen 02/25/19 02/25/19 02/25/19 06:30 06:43 11:30 WBC RBC Hgb Hct MCV MCH MCHC RDW Plt Count MPV Absolute Neuts (auto) Neutrophils % Lymphocytes % Monocytes % Eosinophils % Basophils % Nucleated RBC % ESR VBG pH POC VBG pCO2 POC VBG pO2 VBG HCO3 VBG O2 Sat (Verito) VBG Base Excess Sodium 139 Potassium 4.6 Chloride 108 H Carbon Dioxide 25 Anion Gap 6 L BUN 16.0 Creatinine 1.7 H Est GFR (CKD-EPI)AfAm 50.75 Est GFR (CKD-EPI)NonAf 43.79 POC Glucometer 135 181 Random Glucose 136 H Lactic Acid Calcium 9.5 Phosphorus 2.7 Magnesium 2.1 Total Bilirubin 0.2 AST 12 L ALT 17 Alkaline Phosphatase 91 Ammonia C-Reactive Protein Total Protein 6.3 L Albumin 2.9 L Lipase 411 H Urine Color Urine Appearance Urine pH Ur Specific [place] Urine Protein Urine Glucose (UA) Urine Ketones Urine Blood Urine Nitrite Urine Bilirubin Urine Urobilinogen Ur Leukocyte Esterase Urine WBC (Auto) Urine RBC (Auto) Urine Casts (Auto) U Epithel Cells (Auto) Urine Bacteria (Auto) Ur Random Creatinine U Random Total Protein Ur Random Sodium Urine Collection Time Urine Total Volume Ur Total Protein 24 Hr Stool Occult Blood Stool Lactof[place]in Blood Type Antibody Screen 02/25/19 02/25/19 02/26/19 17:01 22:03 06:29 WBC RBC Hgb Hct MCV MCH MCHC RDW Plt Count MPV Absolute Neuts (auto) Neutrophils % Lymphocytes % Monocytes % Eosinophils % Basophils % Nucleated RBC % ESR VBG pH POC VBG pCO2 POC VBG pO2 VBG HCO3 VBG O2 Sat (Verito) VBG Base Excess Sodium Potassium Chloride Carbon Dioxide Anion Gap BUN Creatinine Est GFR (CKD-EPI)AfAm Est GFR (CKD-EPI)NonAf POC Glucometer 201 135 123 Random Glucose Lactic Acid Calcium Phosphorus Magnesium Total Bilirubin AST ALT Alkaline Phosphatase Ammonia C-Reactive Protein Total Protein Albumin Lipase Urine Color Urine Appearance Urine pH Ur Specific [place] Urine Protein Urine Glucose (UA) Urine Ketones Urine Blood Urine Nitrite Urine Bilirubin Urine Urobilinogen Ur Leukocyte Esterase Urine WBC (Auto) Urine RBC (Auto) Urine Casts (Auto) U Epithel Cells (Auto) Urine Bacteria (Auto) Ur Random Creatinine U Random Total Protein Ur Random Sodium Urine Collection Time Urine Total Volume Ur Total Protein 24 Hr Stool Occult Blood Stool Lactof[place]in Blood Type Antibody Screen 02/26/19 02/26/19 02/26/19 06:42 06:42 11:15 WBC 5.5 RBC 4.03 Hgb 11.3 L Hct 34.8 L MCV 86.4 MCH 28.2 MCHC 32.6 RDW 15.5 Plt Count 274 MPV 9.0 Absolute Neuts (auto) Neutrophils % Lymphocytes % Monocytes % Eosinophils % Basophils % Nucleated RBC % ESR VBG pH POC VBG pCO2 POC VBG pO2 VBG HCO3 VBG O2 Sat (Verito) VBG Base Excess Sodium 138 Potassium 4.6 Chloride 107 Carbon Dioxide 24 Anion Gap 7 L BUN 16.0 Creatinine 1.5 H Est GFR (CKD-EPI)AfAm 59.05 Est GFR (CKD-EPI)NonAf 50.95 POC Glucometer 170 Random Glucose 126 H Lactic Acid Calcium 9.7 Phosphorus 3.0 Magnesium 1.8 Total Bilirubin AST ALT Alkaline Phosphatase Ammonia C-Reactive Protein Total Protein Albumin Lipase Urine Color Urine Appearance Urine pH Ur Specific [place] Urine Protein Urine Glucose (UA) Urine Ketones Urine Blood Urine Nitrite Urine Bilirubin Urine Urobilinogen Ur Leukocyte Esterase Urine WBC (Auto) Urine RBC (Auto) Urine Casts (Auto) U Epithel Cells (Auto) Urine Bacteria (Auto) Ur Random Creatinine U Random Total Protein Ur Random Sodium Urine Collection Time Urine Total Volume Ur Total Protein 24 Hr Stool Occult Blood Stool Lactof[place]in Blood Type Antibody Screen 02/26/19 02/26/19 02/27/19 16:01 22:03 06:13 WBC RBC Hgb Hct MCV MCH MCHC RDW Plt Count MPV Absolute Neuts (auto) Neutrophils % Lymphocytes % Monocytes % Eosinophils % Basophils % Nucleated RBC % ESR VBG pH POC VBG pCO2 POC VBG pO2 VBG HCO3 VBG O2 Sat (Verito) VBG Base Excess Sodium Potassium Chloride Carbon Dioxide Anion Gap BUN Creatinine Est GFR (CKD-EPI)AfAm Est GFR (CKD-EPI)NonAf POC Glucometer 156 176 147 Random Glucose Lactic Acid Calcium Phosphorus Magnesium Total Bilirubin AST ALT Alkaline Phosphatase Ammonia C-Reactive Protein Total Protein Albumin Lipase Urine Color Urine Appearance Urine pH Ur Specific [place] Urine Protein Urine Glucose (UA) Urine Ketones Urine Blood Urine Nitrite Urine Bilirubin Urine Urobilinogen Ur Leukocyte Esterase Urine WBC (Auto) Urine RBC (Auto) Urine Casts (Auto) U Epithel Cells (Auto) Urine Bacteria (Auto) Ur Random Creatinine U Random Total Protein Ur Random Sodium Urine Collection Time Urine Total Volume Ur Total Protein 24 Hr Stool Occult Blood Stool Lactof[place]in Blood Type Antibody Screen 02/27/19 02/27/19 02/27/19 07:47 07:47 17:04 WBC 4.6 RBC 4.15 Hgb 11.8 Hct 35.8 MCV 86.4 MCH 28.3 MCHC 32.8 RDW 15.1 Plt Count 277 MPV 8.8 Absolute Neuts (auto) Neutrophils % Lymphocytes % Monocytes % Eosinophils % Basophils % Nucleated RBC % ESR VBG pH POC VBG pCO2 POC VBG pO2 VBG HCO3 VBG O2 Sat (Verito) VBG Base Excess Sodium 135 L Potassium 5.0 Chloride 101 Carbon Dioxide 28 Anion Gap 6 L BUN 15.8 Creatinine 1.9 H Est GFR (CKD-EPI)AfAm 44.37 Est GFR (CKD-EPI)NonAf 38.28 POC Glucometer 200 Random Glucose 162 H Lactic Acid Calcium 9.9 Phosphorus 3.0 Magnesium 1.6 L Total Bilirubin 0.4 AST 23 ALT 31 Alkaline Phosphatase 105 Ammonia C-Reactive Protein Total Protein 6.7 Albumin 3.1 L Lipase Urine Color Urine Appearance Urine pH Ur Specific [place] Urine Protein Urine Glucose (UA) Urine Ketones Urine Blood Urine Nitrite Urine Bilirubin Urine Urobilinogen Ur Leukocyte Esterase Urine WBC (Auto) Urine RBC (Auto) Urine Casts (Auto) U Epithel Cells (Auto) Urine Bacteria (Auto) Ur Random Creatinine U Random Total Protein Ur Random Sodium Urine Collection Time Urine Total Volume Ur Total Protein 24 Hr Stool Occult Blood Stool Lactof[place]in Blood Type Antibody Screen 02/27/19 02/28/19 02/28/19 21:50 07:03 11:25 WBC RBC Hgb Hct MCV MCH MCHC RDW Plt Count MPV Absolute Neuts (auto) Neutrophils % Lymphocytes % Monocytes % Eosinophils % Basophils % Nucleated RBC % ESR VBG pH POC VBG pCO2 POC VBG pO2 VBG HCO3 VBG O2 Sat (Verito) VBG Base Excess Sodium Potassium Chloride Carbon Dioxide Anion Gap BUN Creatinine Est GFR (CKD-EPI)AfAm Est GFR (CKD-EPI)NonAf POC Glucometer 185 240 131 Random Glucose Lactic Acid Calcium Phosphorus Magnesium Total Bilirubin AST ALT Alkaline Phosphatase Ammonia C-Reactive Protein Total Protein Albumin Lipase Urine Color Urine Appearance Urine pH Ur Specific [place] Urine Protein Urine Glucose (UA) Urine Ketones Urine Blood Urine Nitrite Urine Bilirubin Urine Urobilinogen Ur Leukocyte Esterase Urine WBC (Auto) Urine RBC (Auto) Urine Casts (Auto) U Epithel Cells (Auto) Urine Bacteria (Auto) Ur Random Creatinine U Random Total Protein Ur Random Sodium Urine Collection Time Urine Total Volume Ur Total Protein 24 Hr Stool Occult Blood Stool Lactoferrin Blood Type Antibody Screen 02/28/19 02/28/19 03/01/19 16:42 21:39 06:45 WBC RBC Hgb Hct MCV MCH MCHC RDW Plt Count MPV Absolute Neuts (auto) Neutrophils % Lymphocytes % Monocytes % Eosinophils % Basophils % Nucleated RBC % ESR VBG pH POC VBG pCO2 POC VBG pO2 VBG HCO3 VBG O2 Sat (Verito) VBG Base Excess Sodium Potassium Chloride Carbon Dioxide Anion Gap BUN Creatinine Est GFR (CKD-EPI)AfAm Est GFR (CKD-EPI)NonAf POC Glucometer 162 137 141 Random Glucose Lactic Acid Calcium Phosphorus Magnesium Total Bilirubin AST ALT Alkaline Phosphatase Ammonia C-Reactive Protein Total Protein Albumin Lipase Urine Color Urine Appearance Urine pH Ur Specific [place] Urine Protein Urine Glucose (UA) Urine Ketones Urine Blood Urine Nitrite Urine Bilirubin Urine Urobilinogen Ur Leukocyte Esterase Urine WBC (Auto) Urine RBC (Auto) Urine Casts (Auto) U Epithel Cells (Auto) Urine Bacteria (Auto) Ur Random Creatinine U Random Total Protein Ur Random Sodium Urine Collection Time Urine Total Volume Ur Total Protein 24 Hr Stool Occult Blood Stool Lactoferrin Blood Type Antibody Screen 03/01/19 11:35 WBC RBC Hgb Hct MCV MCH MCHC RDW Plt Count MPV Absolute Neuts (auto) Neutrophils % Lymphocytes % Monocytes % Eosinophils % Basophils % Nucleated RBC % ESR VBG pH POC VBG pCO2 POC VBG pO2 VBG HCO3 VBG O2 Sat (Verito) VBG Base Excess Sodium Potassium Chloride Carbon Dioxide Anion Gap BUN Creatinine Est GFR (CKD-EPI)AfAm Est GFR (CKD-EPI)NonAf POC Glucometer 159 Random Glucose Lactic Acid Calcium Phosphorus Magnesium Total Bilirubin AST ALT Alkaline Phosphatase Ammonia C-Reactive Protein Total Protein Albumin Lipase Urine Color Urine Appearance Urine pH Ur Specific [place] Urine Protein Urine Glucose (UA) Urine Ketones Urine Blood Urine Nitrite Urine Bilirubin Urine Urobilinogen Ur Leukocyte Esterase Urine WBC (Auto) Urine RBC (Auto) Urine Casts (Auto) U Epithel Cells (Auto) Urine Bacteria (Auto) Ur Random Creatinine U Random Total Protein Ur Random Sodium Urine Collection Time Urine Total Volume Ur Total Protein 24 Hr Stool Occult Blood Stool Lactoferrin Blood Type Antibody Screen Discharge Medications Medication Instructions Recorded Amlodipine Besylate [Norvasc -] 5 mg PO DAILY 11/29/16 Aspirin [Giovana Chewable Aspirin] 81 mg PO DAILY 11/29/16 Glipizide [Glipizide ER] 5 mg PO BID 11/29/16 Multivit-Min/Iron Fum/Folic AC 1 each PO DAILY 11/29/16 [Ujxpj-Yorbzmv-Cimjpvqu Tablet] Ranitidine HCl 150 mg PO DAILY 11/29/16 Sodium Bicarbonate - 1,300 mg PO DAILY 11/29/16 Dulaglutide [Trulicity] 0.75 mg SQ WEEKLY 02/23/19 Pravastatin Sodium [Pravachol -] 40 mg PO HS 02/23/19 Cholecalciferol (Vitamin D3) 5,000 unit PO DAILY 02/24/19 [Vitamin D3] Gabapentin 400 mg PO TID 02/24/19 Lisinopril 5 mg PO DAILY 02/24/19 Tiotropium [place] [Spiriva 2 puff DAILY 02/24/19 Respimat] Tamsulosin HCl [Flomax -] 0.4 mg PO DAILY@0830 #30 cap.er.24h 02/28/19 Docusate Sodium [Colace -] 100 mg PO BID #60 capsule 03/01/19 Date of Admission:02/23/19 Date of Discharge: 03/01/19 Minutes to complete discharge: 40 Discharge Summary Reason For Visit: ACUTE HEMORRHOID/COLITIS Current Active Problems Acute pancreatitis without infection or necrosis (Acute) Colitis (Acute) Diabetes mellitus with stage 2 chronic kidney disease, with long-term current use of insulin (Acute) Diarrhea (Acute) Epigastric abdominal tenderness without rebound tenderness (Acute) History of left nephrectomy (Acute) Hyperlipidemia (Acute) Hypertension (Acute) Noninfectious colitis (Acute) S/p nephrectomy (Acute) Suprapubic pain (Acute) Urinary retention due to benign prostatic hyperplasia (Acute) Hospital Course: 58 year old male with history of COPD, HTN, DM 2, s/p L Nephrectomy, s/p recent bilateral hip surgery, presents with abdominal pain with associated bloody diarrhea. symptoms have subsequently resolved. He underwent GI eval and flexble signoidiscoopy with no significant findings. he is tlerating oral intake with minimal abdominal discomfort and without nausea/vomiting/fevers. He also experienced urinary retention requiring ramos insertion - he was evaluated by Urology and started on Tamsulosin and recmmended for Urology follow up as outpatient for TOV/Cystoscopy/possible TRUS. 1. Acute Colitis, etiology unclear, resolved. Diarrhea resolved - no BM in 2 days Afebrile, no leukocytosis. Received flagyl/cefoxitin/bactrim in the ER, subsequently Zosyn, now all Abx discontinued by ID. s/p flex sigmoidoscopy - erythematous areas, diverticula. (Last colonoscopy 2016, positive for tubular adenomas) Cdiff negative, stool leukocytes negative, Stool Cx negative, Stool Ova and Parasites pending Tolerating oral intake. Medically optimized for discharge. GI follow up. 2. Urinary retention sec to likely BPH requiring ramos insertion - seen by urology - for discharge with Ramos and Tamsulosin, with urology outpatient follow up for Cystoscopy/TRUS in 1 week. Urine Cx negative. 3. TIM on CKD 3 - renal function improved. No hydronephrosis or obstruction on imaging. s/p Nephrectomy > 10 years ago, reason unclear. Baseline Creatinine 1.6 - 1.9. 4. DM 2 - no further episodes of hypoglycemia. To resume Glipizide and Trulicity on discharge 5. HTN - Continue Norvasc, Lisinopril. 6. COPD - Stable. Continue Spiriva. 7. HLD - Continue Statin. Medically optimized for discharge with GI and Urology follow up. Condition: Improved - Instructions Diet, Activity, Other Instructions: You came into the hospital for abdominal pain, diarrhea, found to have mild colitis. You had a flexible sigmoidoscopy that did not show any significant findings. You were also evaluated by the urologist for the enlarged prostate. A catheter was inserted to prevent your urine from retaining. Please follow up with Dr. Zaman for further work up, for ramos removal, and further management. Please continue taking your home medications as prescribed. Please follow up with your primary care physician in one week to monitor your improvement. Please follow up with the urologist (Dr. Zaman) to further manage your enlarged prostate. Please follow up with the finishing machine operator (Dr. Schwarz) within 1-2 weeks. Please continue to follow a low fat, low sodium diet. Please return to the ER if you have any signs or symptoms of chest pain, shortness of breath, uncontrollable fever, chills, nausea, vomiting, numbness, tingling, or weakness in any part of your body, changes in vision, or slurred speech. Please return to the ER if symptoms persist, worsen, or new symptoms arise. Referrals: [facility] [place] [Provider Group] Willem Zaman MD [Staff Physician] - 1 Week Clayton Schwarz DO [Staff Physician] - 2 Weeks Eugenia Farr MD [Staff Physician] - 1 Week Disposition: HOME - Home Medications Comprehensive Discharge Medication List: Ambulatory Orders Amlodipine Besylate [Norvasc -] 5 mg PO DAILY 11/29/16 Aspirin [Giovana Chewable Aspirin] 81 mg PO DAILY 11/29/16 Glipizide [Glipizide ER] 5 mg PO BID 11/29/16 Multivit-Min/Iron Fum/Folic AC [Lsanq-Bwkqzfs-Aoydnvvw Tablet] 1 each PO DAILY 11/29/16 Ranitidine HCl 150 mg PO DAILY 11/29/16 Sodium Bicarbonate - 1,300 mg PO DAILY 11/29/16 Dulaglutide [Trulicity] 0.75 mg SQ WEEKLY 02/23/19 Pravastatin Sodium [Pravachol -] 40 mg PO HS 02/23/19 Cholecalciferol (Vitamin D3) [Vitamin D3] 5,000 unit PO DAILY 02/24/19 Gabapentin 400 mg PO TID 02/24/19 Lisinopril 5 mg PO DAILY 02/24/19 Tiotropium [place] [Spiriva Respimat] 2 puff DAILY 02/24/19 Tamsulosin HCl [Flomax -] 0.4 mg PO DAILY@0830 #30 cap.er.24h 02/28/19 Docusate Sodium [Colace -] 100 mg PO BID #60 capsule 03/01/19 This patient is new to me today: No Emergency Visit: Yes ED Registration Date: 02/23/19 Care time: The patient presented to the Emergency Department on the above date and was hospitalized for further evaluation of their emergent condition. Critical Care patient: No - Discharge Referral Referred to [facility] No Physician Referral: Logan Schwarz DO (GI)
[2019-03-01] MEDS ORDERED: PT OWN MED DRAWER 7, Y5N ONE (22:15)
[2019-03-01] MEDS: ROSUVASTATIN CA 10 MG TABLET (FP) PO SCH (22:22)
[2019-03-02] MEDS ORDERED: ACETAMINOPHEN 325 MG TABLET (FP) PO ONE (05:55)
[2019-03-02] MEDS: INSULIN SLIDING SCALE (NOVOLOG) 1 VIAL SQ SCH ×2 (06:27→11:14)
[2019-03-02] MEDS: TAMSULOSIN HCL 0.4 MG CAP PO SCH (09:30)
[2019-03-02] MEDS: PHENYLEPHRINE HCL/COCOA BUTTER SUPPOSITORY RC SCH (09:31)
[2019-03-02] MEDS: amLODIPine BESYLATE 5 MG TABLET (FP) PO SCH (09:31)
[2019-03-02] MEDS: PANTOPRAZOLE SODIUM 40 MG VIAL IVPUSH SCH (09:31)
[2019-03-02] MEDS: LISINOPRIL 5 MG TABLET (FP) PO SCH (09:31)
[2019-03-02] MEDS ORDERED: INSULIN (NOVOLOG) ASPART 100 UNITS/ML 10ML VIAL ONE (11:01)
--- NOTE | 2019-03-02 11:32 | PN ---
Progress Note, Physician History of Present Illness: stable no new issues - Current Medication List Current Medications: Active Medications Amlodipine Besylate (Norvasc -) 5 mg PO DAILY [facility] Last Admin: 03/02/19 09:31 Dose: Not Given [place] Butter/Phenylephrine (Preparation H Suppository) 1 each RC BID [facility] Last Admin: 03/02/19 09:31 Dose: 1 each Docusate Sodium (Colace -) 100 mg PO BID PRN PRN Reason: CONSTIPATION Heparin Sodium (Porcine) (Heparin -) 5,000 unit SQ TID [facility] Last Admin: 02/26/19 13:07 Dose: 5,000 unit Insulin Aspart (Novolog Vial Sliding Scale -) 1 vial SQ ACHS [facility]; Protocol Last Admin: 03/02/19 11:14 Dose: 2 units Lisinopril (Prinivil) 5 mg PO DAILY [facility] Last Admin: 03/02/19 09:31 Dose: Not Given Pantoprazole Sodium (Protonix Iv) 40 mg IVPUSH DAILY [facility] Last Admin: 03/02/19 09:31 Dose: Not Given Rosuvastatin Calcium (Crestor -) 10 mg PO HS [facility] Last Admin: 03/01/19 22:22 Dose: 10 mg Tamsulosin HCl (Flomax -) 0.4 mg PO DAILY@0830 [facility] Last Admin: 03/02/19 09:30 Dose: 0.4 mg - Objective Vital Signs: Vital Signs Temperature 98.2 F 03/02/19 10:00 Pulse Rate 77 03/02/19 10:00 Respiratory Rate 18 03/02/19 10:00 Blood Pressure 107/70 03/02/19 10:00 O2 Sat by Pulse Oximetry (%) 98 03/02/19 10:00 Constitutional: Yes: No Distress, Calm Cardiovascular: Yes: Regular Rate and Rhythm Respiratory: Yes: Regular, CTA Bilaterally Gastrointestinal: Yes: Normal Bowel Sounds, Soft Musculoskeletal: Yes: WNL Extremities: Yes: WNL Neurological: Yes: Alert Psychiatric: Yes: Alert Labs: CBC, BMP 02/27/19 07:47 02/27/19 07:47 Assessment/Plan Problem List - Problems (1) Acute pancreatitis without infection or necrosis Code(s): K85.90 - ACUTE PANCREATITIS WITHOUT NECROSIS OR INFECTION, UNSP Qualifiers: Pancreatitis type: drug induced Qualified Code(s): K85.30 - Drug induced acute pancreatitis without necrosis or infection (2) Epigastric abdominal tenderness without rebound tenderness Code(s): R10.816 - EPIGASTRIC ABDOMINAL TENDERNESS (3) Suprapubic pain Code(s): R10.2 - PELVIC AND PERINEAL PAIN (4) Urinary retention due to benign prostatic hyperplasia Code(s): N40.1 - BENIGN PROSTATIC HYPERPLASIA WITH LOWER URINARY TRACT SYMP; R33.8 - OTHER RETENTION OF URINE (5) Noninfectious colitis Code(s): K52.9 - NONINFECTIVE GASTROENTERITIS AND COLITIS, UNSPECIFIED (6) Diabetes mellitus with stage 2 chronic kidney disease, with long-term current use of insulin Code(s): E11.22 - TYPE 2 DIABETES MELLITUS W DIABETIC CHRONIC KIDNEY DISEASE; N18.2 - CHRONIC KIDNEY DISEASE, STAGE 2 (MILD); Z79.4 - HALFWAY (CURRENT) USE OF INSULIN Qualifiers: Diabetes mellitus type: type 2 Qualified Code(s): E11.22 - Type 2 diabetes mellitus with diabetic chronic kidney disease; N18.2 - Chronic kidney disease, stage 2 (mild); Z79.4 - tank terminal gauger (current) use of insulin (7) Hypertension Code(s): I10 - ESSENTIAL (PRIMARY) HYPERTENSION Qualifiers: Hypertension type: essential hypertension Qualified Code(s): I10 - Essential (primary) hypertension (8) Hyperlipidemia Code(s): E78.5 - HYPERLIPIDEMIA, UNSPECIFIED Qualifiers: Hyperlipidemia type: unspecified Qualified Code(s): E78.5 - Hyperlipidemia , unspecified (9) History of left nephrectomy Code(s): Z90.5 - ACQUIRED ABSENCE OF KIDNEY plan continue current mgmt rest as per the team
--- NOTE | 2019-03-02 11:51 | PN ---
Physical Exam: SUBJECTIVE: Patient seen and examined at bedside. no acute complaints. pt seen resting comfortably in bed OBJECTIVE: Vital Signs Period Temp Pulse Resp BP Sys/Bosch Pulse Ox Last 24 Hr 98.0 F-98.4 F 77-99 16-18 107-119/58-70 98-98 GENERAL: The patient is awake, alert, and fully oriented, in no acute distress. LUNGS: Breath sounds equal, clear to auscultation bilaterally, no wheezes, no crackles, no accessory muscle use. HEART: Regular rate and rhythm, S1, S2 without murmur, rub or gallop. ABDOMEN: Soft, nontender, nondistended, normoactive bowel sounds, no guarding EXTREMITIES: 2+ pulses, warm, well-perfused, no edema. SKIN: Warm, dry, normal turgor, no rashes or lesions noted Laboratory Results - last 24 hr 03/01/19 03/01/19 03/02/19 16:55 22:20 06:24 POC Glucometer 216 199 136 03/02/19 10:59 POC Glucometer 202 Current Medications Amlodipine Besylate (Norvasc -) 5 mg PO DAILY [facility] Last Admin: 03/02/19 09:31 Dose: Not Given [place] Butter/Phenylephrine (Preparation H Suppository) 1 each RC BID [facility] Last Admin: 03/02/19 09:31 Dose: 1 each Docusate Sodium (Colace -) 100 mg PO BID PRN PRN Reason: CONSTIPATION Heparin Sodium (Porcine) (Heparin -) 5,000 unit SQ TID [facility] Last Admin: 02/26/19 13:07 Dose: 5,000 unit Insulin Aspart (Novolog Vial Sliding Scale -) 1 vial SQ [facility]; Protocol Last Admin: 03/02/19 11:14 Dose: 2 units Lisinopril (Prinivil) 5 mg PO DAILY [facility] Last Admin: 03/02/19 09:31 Dose: Not Given Pantoprazole Sodium (Protonix Iv) 40 mg IVPUSH DAILY [facility] Last Admin: 03/02/19 09:31 Dose: Not Given Rosuvastatin Calcium (Crestor -) 10 mg PO HS [facility] Last Admin: 03/01/19 22:22 Dose: 10 mg Tamsulosin HCl (Flomax -) 0.4 mg PO DAILY@0830 [facility] Last Admin: 03/02/19 09:30 Dose: 0.4 mg ASSESSMENT/PLAN: please see DC summary for further details. Visit type - Emergency Visit Emergency Visit: No - New Patient This patient is new to me today: No - Critical Care Critical Care patient: No - Discharge Referral Referred to [facility] No ATTENDING PHYSICIAN STATEMENT I saw and evaluated the patient. I reviewed the resident's note and discussed the case with the resident. I agree with the resident's findings and plan as documented. SUBJECTIVE: OBJECTIVE: ASSESSMENT AND PLAN:
[2019-03-02 14:40] VITALS: BP 122/76; PULSE 85; TEMP 97.9
--- NOTE | 2019-03-02 14:43 | PN ---
Teaching Attending Note Name of Resident: Maria L Maradiaga ATTENDING PHYSICIAN STATEMENT I saw and evaluated the patient. I reviewed the resident's note and discussed the case with the resident. I agree with the resident's findings and plan as documented. SUBJECTIVE: LLQ abdominal pain much improved. No further diarrhea - normal BM overnight, no blood. No nausea/vomiting. No fever/chills. OBJECTIVE: Afebrile, Hemodynamicaly Stable. Last Vital Signs Temp Pulse Resp BP Pulse Ox 97.9 F 85 20 122/76 98 03/02/19 14:37 03/02/19 14:37 03/02/19 14:37 03/02/19 14:37 03/02/19 10:00 Heart - S1, S2, RRR Lungs - clear to auscultation Abdomen - Soft, mild LLQ tenderness. Bowel Sounds normal. Extremities - no edema, no calf tenderness. - ramos in situ, clear urine. Laboratory Results - last 24 hr 03/01/19 03/01/19 03/02/19 16:55 22:20 06:24 POC Glucometer 216 199 136 03/02/19 10:59 POC Glucometer 202 Current Medications Generic Name Dose Route Start Last Admin Trade Name Freq PRN Reason Stop Dose Admin Amlodipine Besylate 5 mg 02/24/19 13:45 03/02/19 09:31 Norvasc - PO Not Given DAILY [facility] Butter/Phenylephrine 1 each 02/23/19 10:00 03/02/19 09:31 Preparation H Suppository RC 1 each BID AN[facility] Administration Docusate Sodium 100 mg 03/01/19 14:45 Colace - PO BID PRN CONSTIPATION Heparin Sodium (Porcine) 5,000 unit 02/23/19 14:00 02/26/19 13:07 Heparin - SQ 5,000 unit TID ANTHONY Administration Insulin Aspart 1 vial 02/24/19 16:30 03/02/19 11:14 Novolog Vial Sliding Scale - SQ 2 units ACHS ANTH[facility]Y Administration Protocol Lisinopril 5 mg 02/24/19 13:45 03/02/19 09:31 Prinivil PO Not Given DAILY [facility] Pantoprazole Sodium 40 mg 02/23/19 01:56 03/02/19 09:31 Protonix Iv IVPUSH Not Given DAILY [facility] Rosuvastatin Calcium 10 mg 02/24/19 22:00 03/01/19 22:22 Crestor - PO 10 mg HS ANTHONY Administration Tamsulosin HCl 0.4 mg 02/24/19 20:00 03/02/19 09:30 Flomax - PO 0.4 mg DAILY@0830 ANTHONY Administration Home Medications Medication Instructions Recorded Amlodipine Besylate [Norvasc -] 5 mg PO DAILY 11/29/16 Aspirin [Giovana Chewable Aspirin] 81 mg PO DAILY 11/29/16 Glipizide [Glipizide ER] 5 mg PO BID 11/29/16 Multivit-Min/Iron Fum/Folic AC 1 each PO DAILY 11/29/16 [Ewtqj-Meisvvs-Lffhfubu Tablet] Ranitidine HCl 150 mg PO DAILY 11/29/16 Sodium Bicarbonate - 1,300 mg PO DAILY 11/29/16 Dulaglutide [Trulicity] 0.75 mg SQ WEEKLY 02/23/19 Pravastatin Sodium [Pravachol -] 40 mg PO HS 02/23/19 Cholecalciferol (Vitamin D3) 5,000 unit PO DAILY 02/24/19 [Vitamin D3] Gabapentin 400 mg PO TID 02/24/19 Lisinopril 5 mg PO DAILY 02/24/19 Tiotropium [place] [Spiriva 2 puff DAILY 02/24/19 Respimat] Tamsulosin HCl [Flomax -] 0.4 mg PO DAILY@0830 #30 cap.er.24h 02/28/19 Docusate Sodium [Colace -] 100 mg PO BID #60 capsule 03/01/19 ASSESSMENT/PLAN: 58 year old male with history of COPD, HTN, DM 2, s/p L Nephrectomy, s/p recent bilateral hip surgery, presents with abdominal pain with associated bloody diarrhea. symptoms have subsequently resolved. He underwent GI eval and flexible sigmoidoscopy with no significant findings. he is tolerating oral intake with minimal abdominal discomfort and without nausea/vomiting/fevers. He also experienced urinary retention requiring ramos insertion - he was evaluated by Urology and started on Tamsulosin and recommended for Urology follow up as outpatient for TOV/Cystoscopy/possible TRUS. 1. Acute Colitis, etiology unclear, resolved. Diarrhea resolved - last BM overnight, normal. Afebrile, no leukocytosis. Received flagyl/cefoxitin/bactrim in the ER, subsequently Zosyn, now all Abx discontinued by ID. s/p flex sigmoidoscopy - erythematous areas, diverticula. (Last colonoscopy 2016, positive for tubular adenomas) Cdiff negative, stool leukocytes negative, Stool Cx negative, Stool Ova and Parasites pending Tolerating oral intake. Medically optimized for discharge. GI follow up. 2. Urinary retention sec to likely BPH requiring ramos insertion - seen by urology - for discharge with Ramos and Tamsulosin, with urology outpatient follow up for Cystoscopy/TRUS in 1 week. Urine Cx negative. 3. TIM on CKD 3 - renal function improved. No hydronephrosis or obstruction on imaging. s/p Nephrectomy > 10 years ago, reason unclear. Baseline Creatinine 1.6 - 1.9. 4. DM 2 - no further episodes of hypoglycemia. To resume Glipizide and Trulicity on discharge 5. HTN - Continue Norvasc, Lisinopril. 6. COPD - Stable. Continue Spiriva. 7. HLD - Continue Statin. Medically optimized for discharge with GI and Urology follow up.
--- NOTE | 2019-03-03 15:35 | PATH ---
Surgical Pathology Report Patient Name: SINGH POOL [facility]. Rec. #: [id number] /Age/Gender: 1960 (Age: 58) / M Account: [id number] Location: [facility] MED/SURG Taken: 02/27/2019 Received: 02/27/2019 Reported: 03/03/2019 Physicians: Theodore Aguilar MD Specimen(s) Received A: DISTAL TRANSVERSE COLON B: DESCENDING COLON C: SIGMOID D: RECTUM Clinical History Diarrhea Postoperative diagnosis: Colitis, hemorrhoids Final Diagnosis A. DISTAL TRANSVERSE COLON, BIOPSY: COLONIC MUCOSA WITH MILD INCREASE IN CHRONIC INFLAMMATORY INFILTRATE WITHIN LAMINA PROPRIA. NO ACUTE COLITIS OR SIGNIFICANT ARCHITECTURAL DISTORTION IDENTIFIED. B. DESCENDING COLON, BIOPSY: COLONIC MUCOSA WITH PROMINENT LYMPHOID AGGREGATES AND MILD INCREASE IN CHRONIC INFLAMMATORY INFILTRATE WITHIN LAMINA PROPRIA. NO ACUTE COLITIS OR SIGNIFICANT ARCHITECTURAL DISTORTION IDENTIFIED. C. SIGMOID COLON, BIOPSY: COLONIC MUCOSA WITH LYMPHOID AGGREGATE AND MILD INCREASE IN CHRONIC INFLAMMATORY INFILTRATE WITHIN LAMINA PROPRIA. NO ACUTE COLITIS OR SIGNIFICANT ARCHITECTURAL DISTORTION IDENTIFIED. D. RECTUM, BIOPSY: COLONIC MUCOSA WITH SMALL LYMPHOID AGGREGATE AND MILD INCREASE IN CHRONIC INFLAMMATORY INFILTRATE WITHIN LAMINA PROPRIA. NO ACUTE COLITIS OR SIGNIFICANT ARCHITECTURAL DISTORTION IDENTIFIED. Electronically Signed Bette Garcia M.D. Gross Description A. Received in formalin, labeled "biopsy distal transverse colon" are 3 galloway, irregular portions of soft tissue ranging from 0.2-0.5 cm. in greatest dimension. The specimens are submitted in toto in one cassette. B. Received in formalin, labeled "biopsy descending colon" are 2 galloway, irregular portions of soft tissue measuring 0.2 and 0.4 cm. in greatest dimension. The specimens are submitted in toto in one cassette. C. Received in formalin, labeled "biopsy sigmoid colon" is a galloway, irregular portion of soft tissue measuring 0.3 cm. in greatest dimension. The specimen is submitted in toto in one cassette. D. Received in formalin, labeled "biopsy rectum" are 2 galloway, irregular portions of soft tissue measuring 0.2 and 0.4 cm. in greatest dimension. The specimens are submitted in toto in one cassette. DL/02/27/2019 saudi/02/27/2019
== END 2019-03-02 14:43 | disposition home or self-care (01) | DRG 249 ==
LOC: JER 22:12 → JERBED 02-23 01:31 → J7W 02-23 20:16
PROVIDERS: ADMIT Internal Medicine
PROC: 0DBM8ZX Excision of Descending Colon, Via Natural or Artificial Opening Endoscopic, Diagnostic (ICD-10-PCS; 2019-02-27)
PROC: 0DBN8ZX Excision of Sigmoid Colon, Via Natural or Artificial Opening Endoscopic, Diagnostic (ICD-10-PCS; 2019-02-27)
PROC: 0DBP8ZX Excision of Rectum, Via Natural or Artificial Opening Endoscopic, Diagnostic (ICD-10-PCS; 2019-02-27)
PROC: 0DBL8ZX Excision of Transverse Colon, Via Natural or Artificial Opening Endoscopic, Diagnostic (ICD-10-PCS; principal; 2019-02-27 12:17)
DX: K52.9 Noninfective gastroenteritis and colitis, unspecified (principal); R10.9 Unspecified abdominal pain; Z90.5 Acquired absence of kidney; N40.1 Benign prostatic hyperplasia with lower urinary tract symptoms; E78.5 Hyperlipidemia, unspecified; I10 Essential (primary) hypertension; E11.65 Type 2 diabetes mellitus with hyperglycemia; R19.7 Diarrhea, unspecified; K85.30 Drug induced acute pancreatitis without necrosis or infection; N17.9 Acute kidney failure, unspecified; E87.2 Acidosis; K64.8 Other hemorrhoids; I12.9 Hypertensive chronic kidney disease with stage 1 through stage 4 chronic kidney disease, or unspecified chronic kidney disease; N18.3 Chronic kidney disease, stage 3 (moderate); R33.9 Retention of urine, unspecified
CPT/HCPCS: 36415; 74176-TC; 76700-TC; 80048; 80053; 81003; 82140; 82272; 82565; 82803; 82962; 83605; 83631; 83690; 83735; 84100; 84156; 84300; 85025; 85027; 85651; 86140; 86850; 86900; 86901; 87040; 87045; 87046; 87086; 87177; 87205; 87209; 87324; 87449; 88305-TC; 88309-TC; 99285-25; J0131; J1644

== ENCOUNTER 2019-08-01 21:49 | Emergency (ER) | payer OTHER ==
[2019-08-01 21:53] VITALS: BP 149/83; PULSE 110; TEMP 98.4; BMI 30.2
--- NOTE | 2019-08-01 22:10 | PDOC ---
History of Present Illness - General Chief Complaint: Injury Stated Complaint: TWISTED LT FOOT Time Seen by Provider: 08/01/19 21:59 History Source: Patient Exam Limitations: No Limitations Past History - Travel Traveled outside of the country in the last 30 days: No Close contact w/someone who was outside of country & ill: No - Past Medical History Allergies/Adverse Reactions: Allergies Allergy/AdvReac Type Severity Reaction Status Date / Time No Known Allergies Allergy Verified 08/01/19 21:54 Home Medications: Ambulatory Orders Amlodipine Besylate [Norvasc -] 5 mg PO DAILY 11/29/16 Aspirin [Giovana Chewable Aspirin] 81 mg PO DAILY 11/29/16 Glipizide [Glipizide ER] 5 mg PO BID 11/29/16 Multivit-Min/Iron Fum/Folic AC [Qzuom-Wtdtaga-Hmpayplt Tablet] 1 each PO DAILY 11/29/16 Ranitidine HCl 150 mg PO DAILY 11/29/16 Sodium Bicarbonate - 1,300 mg PO DAILY 11/29/16 Dulaglutide [Trulicity] 0.75 mg SQ WEEKLY 02/23/19 Pravastatin Sodium [Pravachol -] 40 mg PO HS 02/23/19 Cholecalciferol (Vitamin D3) [Vitamin D3] 5,000 unit PO DAILY 02/24/19 Gabapentin 400 mg PO TID 02/24/19 Lisinopril 5 mg PO DAILY 02/24/19 Tiotropium [place] [Spiriva Respimat] 2 puff DAILY 02/24/19 Tamsulosin HCl [Flomax -] 0.4 mg PO DAILY@0830 #30 cap.er.24h 02/28/19 Docusate Sodium [Colace -] 100 mg PO BID #60 capsule 03/01/19 Diclofenac Sodium [Voltaren] 100 gm TP Q8H #1 tube 08/01/19 Oxycodone HCl/Acetaminophen [Percocet 5-325 mg Tablet] 1 tab PO Q6H #10 tablet MDD 4 08/01/19 Anemia: No Asthma: Yes Cancer: No Cardiac Disorders: No CVA: No COPD: No CHF: No Dementia: No Diabetes: Yes GI Disorders: Yes (HX HEMORRHOIDS) Disorders: Yes HTN: Yes Hypercholesterolemia: Yes Liver Disease: No Seizures: No Thyroid Disease: No - Surgical History Abdominal Surgery: Yes (hernia repair in 2013) Appendectomy: No Cardiac Surgery: No Cholecystectomy: No Lung Surgery: No Neurologic Surgery: No Orthopedic Surgery: Yes (R hip replacement) - Psycho Social/Smoking Cessation Hx Smoking History: Never smoked Have you smoked in the past 12 months: Yes Number of Cigarettes Smoked Daily: 7 If you are a former smoker, when did you quit?: December 2018 'Breaking Loose' booklet given: 02/23/19 Hx Alcohol Use: No Drug/Substance Use Hx: No Substance Use Type: None Hx Substance Use Treatment: No Review of Systems - Review of Systems Able to Perform ROS?: Yes Comments:: 08/01/19 23:27 CONSTITUTIONAL: Absent: fever, chills, diaphoresis, generalized weakness, malaise, loss of appetite MUSCULOSKELETAL: Present: Left ankle pain absent: myalgia, arthralgia, joint swelling SKIN: Absent: rash, itching, pallor NEUROLOGIC: Absent: headache, focal weakness or paresthesias, dizziness, unsteady gait, seizure, mental status changes, bladder or bowel incontinence PSYCHIATRIC: Absent: anxiety, depression, suicidal or homicidal ideation, hallucinations. Is the patient limited [place] proficient: No *Physical Exam - Vital Signs Last Vital Signs Temp Pulse Resp BP Pulse Ox 98.4 F 110 H 18 149/83 97 08/01/19 21:50 08/01/19 21:50 08/01/19 21:50 08/01/19 21:50 08/01/19 21:50 - Physical Exam 08/01/19 23:27 GENERAL: The patient is awake, alert, and fully oriented, in no acute distress. HEAD: Normal with no signs of trauma. EYES: Pupils equal, round and reactive to light, extraocular movements intact, sclera anicteric, conjunctiva clear. EXTREMITIES: Left ankle with swelling over the lateral malleolus to the left lateral foot. No obvious bruising. Strength intact of the ankles bilaterally. Negative Cheng test. Normal range of motion, no edema. NEUROLOGICAL: Normal speech, normal gait. PSYCH: Normal mood, normal affect. SKIN: Warm, Dry, normal turgor, no rashes or lesions noted. Medical Decision Making - Medical Decision Making 08/01/19 23:28 Patient is a 59-year-old male with past medical history of non-insulin- dependent diabetes, peripheral neuropathy, hypertension, asthma, hyperlipidemia , presents to the ER today with left ankle pain. He states that 3 days ago he had an inversion-like injury and twisted his left ankle. He states that since then the pain has been unbearable. He states that it hurts to walk. He has been taking his usual medications for his neuropathy with little relief of his symptoms. Denies numbness and tingling and weakness to the affected extremity. A/P: Ankle sprain On exam there is swelling to the lateral malleolus down the left foot. No obvious bruising. Skin is intact with no evidence of abrasions, foot wounds. X-ray obtained of the left ankle and foot; no obvious fractures. Likely ankle sprain made worse by patient's neuropathy. Discharge home with Percocet and orthopedic follow-up I discussed the physical exam findings, ancillary test results and final diagnoses with the patient. I answered all of the patient's questions. The patient was satisfied with the care received and felt comfortable with the discharge plan and treatment plan. The Patient agrees to follow up with the primary care physician/specialist within 24-72 hours. Return precautions were given. Discharge - Discharge Information Problems reviewed: Yes Clinical Impression/Diagnosis: Left ankle sprain Qualifiers: Encounter type: initial encounter Involved ligament of ankle: unspecified ligament Qualified Code(s): S93.402A - Sprain of unspecified ligament of left ankle, initial encounter Condition: Stable Disposition: HOME - Admission No - Additional Discharge Information Prescription Drug Monitoring Program (I-STOP) results: I-STOP reviewed and no issues identified (Reference #: [id number]) - Follow up/Referral Referrals: Chiquis Read MD [Non Staff, Medical] - Uche Carvalho DO [Staff Physician] - - Patient Discharge Instructions Patient Printed Discharge Instructions: DI for Ankle Sprain Additional Instructions: You sprained your ankle. Your x-ray was negative for broken bones. Please keep your ankle elevated while at rest above the level of your heart to reduce swelling. You may take the Percocet as directed. Do not drink alcohol or drive after taking this medication as it may make you drowsy. Do not take this medication with Tylenol. You may use a diclofenac cream over the area as directed. Please ice the area for 20 minute intervals at least 5 times a day to help reduce swelling. Please wear the Robert wrap. Please follow-up with orthopedics in 1 week if your symptoms are not improving. Return to the emergency department if you have worsening pain, or unable to walk , numbness and tingling of the foot, or had any changes in her symptoms. - Post Discharge Activity
[2019-08-01] MEDS ORDERED: ACETAMINOPHEN 325 MG TABLET (FP) PO ONE (23:16)
== END 2019-08-02 00:05 | disposition home or self-care (01) ==
LOC: JER 21:49
DX: S93.402A Sprain of unspecified ligament of left ankle, initial encounter (principal); X50.1XXA Overexertion from prolonged static or awkward postures, initial encounter; Y93.89 Activity, other specified; Y92.89 Other specified places as the place of occurrence of the external cause; Y99.8 Other external cause status; I10 Essential (primary) hypertension; E78.5 Hyperlipidemia, unspecified; E11.9 Type 2 diabetes mellitus without complications; Z79.84 Long term (current) use of oral hypoglycemic drugs; G62.9 Polyneuropathy, unspecified; J45.909 Unspecified asthma, uncomplicated
CPT/HCPCS: 73610-TC-LT-FY; 73630-TC-LT; 99281-25

== ENCOUNTER 2020-10-18 04:24 | Day surgery (SDC) | payer OTHER ==
[2020-10-17 13:40] VITALS: BMI 31.2
[2020-10-18 13:36] VITALS: TEMP 97.8
[2020-10-18 14:42] VITALS: BP 126/76; PULSE 72
== END 2020-10-18 14:40 | disposition home or self-care (01) ==
LOC: JASU-ENDO 04:24
PROVIDERS: ATTEND Internal Medicine Gastroenterology
PROC: 0DB78ZX Excision of Stomach, Pylorus, Via Natural or Artificial Opening Endoscopic, Diagnostic (ICD-10-PCS; principal; 2020-10-18 13:19)
DX: K29.50 Unspecified chronic gastritis without bleeding (principal); K31.89 Other diseases of stomach and duodenum; R93.3 Abnormal findings on diagnostic imaging of other parts of digestive tract; R10.13 Epigastric pain